=== PATIENT | female | born 1955 | race Caucasian/White ===

== ENCOUNTER 2020-03-25 08:09 | Outpatient (REF) | payer OTHER, SELFPAY ==
--- NOTE | 2020-03-25 | US_ITS ---
EXAMINATION: US THYROID CLINICAL INFORMATION: Multinodular goiter. COMPARISON: Ultrasound soft tissue head/neck thyroid dated 10/20/2018. TECHNIQUE: Linear transducer diggs-scale and color Doppler examination with attention to the region of the thyroid. FINDINGS: SIZE: Measurements of the thyroid lobes and nodules are given in sagittal, anteroposterior and transverse dimensions respectively. Right Thyroid Lobe: 4.1 x 2.2 x 1.9 cm, volume 8.8 mL. Previously 4.3 x 2.2 x 1.7 cm, volume 8.4 mL. Parenchyma: The gland echotexture is heterogeneous. Thyroid vascularity is normal. Left Thyroid Lobe: 3.1 x 1.3 x 1.2 cm, volume 2.5 mL. Previously 3.5 x 1.1 x 1.0 cm, volume 2.0 mL. Parenchyma: The gland echotexture is heterogeneous. Thyroid vascularity is normal. Isthmus: 0.4 cm in maximum AP dimension. Previously 0.7 cm. RIGHT THYROID LOBE: There are 4 nodules seen. 1. Location: Superior. Size: 0.9 x 0.7 x 0.8 cm. Previous: 0.8 x 0.7 x 0.9 cm. Nodule characteristics: Hypoechoic, smoothly-marginated with intranodular flow. 2. Location: Middle. Size: 0.9 x 0.6 x 0.7 cm. Previous: 0.5 x 0.6 x 0.6 cm. Nodule characteristics: Hyperechoic, smoothly-marginated with intranodular flow. 3. Location: Middle. Size: 1.3 x 1.3 x 0.8 cm. Previous: 2.4 x 1.8 x 1.7 cm. Nodule characteristics: Heterogeneous, smoothly-marginated with intranodular flow. 4. Location: Inferior. Size: 1.4 x 1.0 x 1.0 cm. Previous: Not seen on the prior study. Nodule characteristics: Hyperechoic, smoothly-marginated with intranodular flow. ISTHMUS: There are 2 nodules seen. 1. Location: Right isthmus. Size: 1.1 x 0.7 x 0.7 cm. Previous: 0.4 x 0.3 x 0.4 cm. Nodule characteristics: Isoechoic, smoothly-marginated with intranodular flow. 2. Location: Right isthmus. Size: 0.5 x 0.5 x 0.6 cm. Previous: 0.5 x 0.4 x 0.5 cm. Nodule characteristics: Hyperechoic, smoothly-marginated with intranodular flow. LEFT THYROID LOBE: There is 1 nodule seen. 1. Location: Superior. Size: 1.1 x 0.6 x 0.8 cm. Previous: 1.1 x 0.6 x 0.7 cm. Nodule characteristics: Hyperechoic, smoothly-marginated with intranodular flow. NODES: No lymphadenopathy is seen in the tissue surrounding the thyroid gland. US/US thyroid IMPRESSION: Multiple thyroid nodules. Right lobe midpole heterogenous 1.3 cm and hyperechoic nodule 1.4 cm lower pole nodules are suspicious. The lower pole nodule is new. Recommend ultrasound fine-needle biopsy if not already done so. Correlation 6 months can be performed as well.
== END 2020-03-25 08:10 | disposition home or self-care (01) ==
LOC: HO.HMGCX 08:09
PROVIDERS: PCP Internal Medicine; Visit Provider Internal Medicine
DX: E04.2 Nontoxic multinodular goiter (principal)
CPT/HCPCS: 76536

== ENCOUNTER 2020-04-19 06:33 | Outpatient (REF) | payer OTHER, SELFPAY ==
[2020-04-19 12:31] LABS: Thyroid Stimulating Hormone 2.36 uIU/mL (0.32-4.0); Vitamin D 25-OH Total 25.4 ng/mL (>30)
== END 2020-04-19 06:34 | disposition home or self-care (01) ==
LOC: HO.HMGCLDS 06:33
PROVIDERS: PCP Internal Medicine; Visit Provider Internal Medicine
DX: E04.2 Nontoxic multinodular goiter (principal)
CPT/HCPCS: 82306; 84443

== ENCOUNTER 2020-04-20 07:32 | Outpatient (REF) | payer OTHER, SELFPAY | END 2020-04-20 07:33 | disposition home or self-care (01) | LOC: HO.US 07:32 | PROVIDERS: PCP Internal Medicine; Referring Provider Internal Medicine; Visit Provider Internal Medicine | DX: Z13.89 Encounter for screening for other disorder (principal) ==

== ENCOUNTER 2020-06-09 07:54 | Outpatient (REF) | payer OTHER, SELFPAY ==
--- NOTE | 2020-06-09 08:34 | PM.OP ---
Brief Operative Note Date of Service: 06/09/20 Surgeon: Lisa Tijerina DO EXAMINATION: US THYROID CLINICAL INFORMATION: Multinodular Thyroid TECHNIQUE: Linear transducer diggs-scale and color Doppler examination with attention to the region of the thyroid. FINDINGS: SIZE: Measurements of the thyroid lobes and nodules are given in sagittal, anteroposterior and transverse dimensions respectively. Right Thyroid Lobe: 2.0 x 1.7 x 4.7 cm. Parenchyma: The gland echotexture is diffusely heterogenous. Thyroid vascularity is normal. Left Thyroid Lobe: 2.9 x 1.2 x 3.6 cm. Parenchyma: The gland echotexture is diffusely heterogenous. Thyroid vascularity is normal. Isthmus: 0.4 cm in maximum AP dimension. RIGHT THYROID LOBE: There is 1 nodule. There is a 1.1 x 1.3 x 1.3 cm predominantly solid slightly hypoechoic nodule in the middle lobe. This has regular margins. LEFT THYROID LOBE: There are no nodules. IMPRESSION: The gland is diffusely heterogenous with many pseudonodules, but only one true nodule identified. Estimated blood loss (mL): 0
== END 2020-06-09 07:55 | disposition home or self-care (01) ==
LOC: HO.US 07:54
PROVIDERS: Visit Provider Internal Medicine
DX: E04.2 Nontoxic multinodular goiter (principal)
CPT/HCPCS: 76536

== ENCOUNTER → 2020-06-22 08:03 | Outpatient (BNVA) | payer OTHER, SELFPAY | PROVIDERS: Visit Provider Internal Medicine ==

== ENCOUNTER → 2020-09-26 09:21 | Outpatient (BNVA) | payer OTHER, SELFPAY | PROVIDERS: PCP Internal Medicine; Visit Provider Internal Medicine ==

== ENCOUNTER 2020-09-29 06:40 | Outpatient (REF) | payer OTHER, SELFPAY ==
[2020-09-29 12:25] LABS: Free T4 (Free Thyroxine) 1.08 ng/dL (0.71-1.85); Thyroid Stimulating Hormone 1.78 uIU/mL (0.32-4.0); Vitamin D 25-OH Total 24.4 ng/mL (>30)
== END 2020-09-29 06:41 | disposition home or self-care (01) ==
LOC: HO.HMGCLDS 06:40
PROVIDERS: PCP Internal Medicine; Visit Provider Internal Medicine
DX: E55.9 Vitamin D deficiency, unspecified (principal); E03.9 Hypothyroidism, unspecified; E04.2 Nontoxic multinodular goiter
CPT/HCPCS: 36415; 82306; 84439; 84443

== ENCOUNTER → 2020-11-17 09:06 | Outpatient (BNVA) | payer OTHER, SELFPAY | PROVIDERS: PCP Internal Medicine; Visit Provider Internal Medicine ==

== ENCOUNTER 2021-05-31 06:43 | Outpatient (REF) | payer OTHER, SELFPAY ==
[2021-05-31 12:28] LABS: Free T4 (Free Thyroxine) 1.08 ng/dL (0.71-1.85); Thyroid Stimulating Hormone 2.47 uIU/mL (0.32-4.0); Vitamin D 25-OH Total 24.1 ng/mL (>30)
== END 2021-05-31 06:44 | disposition home or self-care (01) ==
LOC: HO.HMGCLDS 06:43
PROVIDERS: PCP Internal Medicine; Visit Provider Internal Medicine
DX: E03.9 Hypothyroidism, unspecified (principal); E04.2 Nontoxic multinodular goiter; E55.9 Vitamin D deficiency, unspecified
CPT/HCPCS: 36415; 82306; 84439; 84443

== ENCOUNTER 2021-06-12 08:21 | Outpatient (REF) | payer OTHER, SELFPAY ==
--- NOTE | ~2021-06-12 | US_ITS ---
EXAMINATION: US THYROID CLINICAL INFORMATION: Nontoxic multinodular goiter. COMPARISON: Thyroid ultrasound 03/25/2020 and 10/20/2018. Ultrasound-guided thyroid biopsy 04/02/2019. TECHNIQUE: Linear transducer grayscale and color Doppler examination with attention to the region of the thyroid. FINDINGS: SIZE: Measurements of the thyroid lobes and nodules are given in sagittal, anteroposterior and transverse dimensions respectively. Right Thyroid Lobe: 4.7 x 2.0 x 2.0 cm, volume 10.2 mL. Previously 4.1 x 2.2 x 1.9 cm, volume 8.8 mL. Parenchyma: The gland echotexture is heterogeneous. Thyroid vascularity is increased. Left Thyroid Lobe: 3.4 x 1.4 x 1.2 cm, volume 2.9 mL. Previously 3.1 x 1.3 x 1.2 cm, volume 2.5 mL. Parenchyma: The gland echotexture is heterogeneous. Thyroid vascularity is increased. Isthmus: 0.7 cm in maximum AP dimension. Previously 0.4 cm. Estimated total number of nodules greater than or equal to 1 cm: 3. Social Science Professor nodules are described as follows: 1. Location: Right upper pole. Size: 1.7 x 1.6 x 1.4 cm, volume 2.0 mL. Previously: 0.9 x 0.7 x 0.8 cm, volume 0.26 mL. Nodule characteristics: Composition: Solid/almost completely solid (2). Echogenicity: Cannot be determined (1). Shape: Not taller than wide (0). Margins: Smooth (0). Echogenic Foci: None (0). ACR TI-RADS total points: 3 ACR TI-RADS category: 3 Significant change in size (>/= 20% in 2 dimensions and minimal increase of 2 mm or 50% or greater increase in volume): Yes however this may be due to technical factors, intra-axial or variation of nodule margins. Change in features: Change in ACR TI-RADS risk category: 2. Location: Right mid pole. Size: 2.1 x 1.6 x 1.5 cm, volume 2.6 mL. Previously: 1.3 x 1.3 x 0.8 cm, volume 0.72 mL. Nodule characteristics: Composition: Solid/almost completely solid (2). Echogenicity: Cannot be determined (1). Shape: Not taller than wide (0). Margins: Smooth (0). Echogenic Foci: Punctate echogenic foci (3). ACR TI-RADS total points: 6 ACR TI-RADS category: 4 Significant change in size (>/= 20% in 2 dimensions and minimal increase of 2 mm or 50% or greater increase in volume): Yes however this may be due to technical factors, interobserver variation of nodule margins. Change in features: Change in ACR TI-RADS risk category: 3. Location: Left upper pole. Size: 1.3 x 0.7 x 0.8 cm, volume 0.38 mL. Previously: 1.1 x 0.6 x 0.8 cm, volume 0.28 mL. Nodule characteristics: Composition: Solid (2). Echogenicity: Hyperechoic (1). Shape: Not taller than wide (0). Margins: Smooth (0). Echogenic Foci: None (0). ACR TI-RADS total points: 3 ACR TI-RADS category: 3 The previously identified right isthmus nodule is not appreciated. Significant change in size (>/= 20% in 2 dimensions and minimal increase of 2 mm or 50% or greater increase in volume): Change in features: Change in ACR TI-RADS risk category: NODES: No lymphadenopathy is seen in the tissue surrounding the thyroid gland. US/US thyroid IMPRESSION: Very heterogeneous hypervascular thyroid gland. The right lobe is enlarged. Difference in measurements of the right thyroid nodules may be due to technical factors/interobserver variation of nodule margins. The previously identified right isthmus nodule is no longer appreciated. The left thyroid nodule appears stable. ACR TI-RADS RECOMMENDATION REFERENCE: Ultrasound-guided fine-needle aspiration, followup ultrasound, no further follow up. * TR1 (0 point) and TR 2 (2 points): No FNA or follow up * TR3 (3 points): FNA if more than or equal to 2.5 cm in maximum dimension, followup ultrasound in 1, 3 and 5 years if 1.5 to 2.4 cm in maximum dimension. * TR4 (4-6 points): FNA if more than or equal to 1.5 cm in maximum dimension, followup ultrasound in 1, 2, 3 and 5 years if 1 to 1.4 cm in maximum dimension. * TR5 (more than or equal to 7 points): FNA if more than or equal to 1 cm in maximum dimension, followup ultrasound every year for 5 years if 0.5 to 0.9 cm in maximum dimension. * TR3, TR4 or TR5 nodules that are below the size threshold for follow up receive no follow up.
== END 2021-06-12 08:22 | disposition home or self-care (01) ==
LOC: HO.HMGCX 08:21
PROVIDERS: PCP Internal Medicine; Visit Provider Internal Medicine
DX: E04.2 Nontoxic multinodular goiter (principal)
CPT/HCPCS: 76536

== ENCOUNTER → 2021-06-19 08:16 | Outpatient (BNVA) | payer OTHER, SELFPAY | PROVIDERS: PCP Internal Medicine; Visit Provider Internal Medicine ==

== ENCOUNTER 2021-11-23 09:06 | Outpatient (REF) | payer OTHER, SELFPAY ==
--- NOTE | ~2021-11-23 | XR_ITS ---
EXAMINATION: XR NASAL BONES CLINICAL INFORMATION: Facial injury, rule out nasal bone fracture. COMPARISON: None TECHNIQUE: 3 views of the nasal bones were obtained. FINDINGS: There are no fractures or dislocations. The paranasal sinuses are clear. No bone, joint or soft tissue abnormality is demonstrated. XR/XR nasal bones min 3V IMPRESSION: No acute nasal bone fracture.
== END 2021-11-23 09:07 | disposition home or self-care (01) ==
LOC: HO.HMGCX 09:06
PROVIDERS: PCP Internal Medicine; Visit Provider Internal Medicine
DX: S09.93XA Unspecified injury of face, initial encounter (principal); W19.XXXA Unspecified fall, initial encounter
CPT/HCPCS: 70160

== ENCOUNTER 2021-11-29 06:43 | Outpatient (REF) | payer OTHER, SELFPAY ==
[2021-11-29 11:22] LABS: Hematocrit 41.5 % (37.0-47.0); Hemoglobin 13.6 g/dl (12.0-16.0); Mean Corpuscular HGB Conc 32.8 g/dl (31.0-35.0); Mean Corpuscular Hemoglobin 31.3 pg (27.0-33.0); Mean Corpuscular Volume 95.6 fL (80.0-98.0); Mean Platelet Volume 12.7 fL (9.4-12.3); Platelet Count 208 X10*3/uL (160-400); Red Blood Count 4.34 X10*6/uL (4.20-5.50); Red Cell Distribution Width 13.2 % (11.0-16.0); White Blood Count 5.5 X10*3/uL (4.8-10.8)
[2021-11-29 11:43] LABS: Alanine Aminotransferase 25 U/L (0-31); Albumin Level 4.2 g/dL (3.5-5.0); Alkaline Phosphatase 89 U/L (39-117); Anion Gap 11 (12-20); Aspartate Amino Transferase 20 U/L (5-31); Bilirubin Total 1.1 mg/dL (0.0-1.0); Blood Urea Nitrogen 17 mg/dL (9-16); Calcium 8.9 mg/dL (8.4-10.2); Carbon Dioxide 28 mmol/L (22-29); Chloride 107 mmol/L (96-108); Cholesterol 141 mg/dL; Estimated Glomerular Filt Rate > 60; Glucose Fasting 100 mg/dL (60-99); HDL Cholesterol 41 mg/dL; LDL Cholesterol Calculated 83 mg/dl; Potassium 4.2 mmol/L (3.3-5.1); Sodium 142 mmol/L (135-145); Total Protein 7.1 g/dL (6.5-8.0); Triglycerides 89 mg/dL
== END 2021-11-29 06:44 | disposition home or self-care (01) ==
LOC: HO.HMGCLDS 06:43
PROVIDERS: Absent Provider Internal Medicine; PCP Internal Medicine; Visit Provider Internal Medicine
DX: E03.9 Hypothyroidism, unspecified (principal); E04.2 Nontoxic multinodular goiter; E55.9 Vitamin D deficiency, unspecified; E78.5 Hyperlipidemia, unspecified
CPT/HCPCS: 36415; 80053; 80061; 85027

== ENCOUNTER 2021-12-27 08:34 | Outpatient (REF) | payer OTHER, SELFPAY ==
[2021-12-27 12:19] LABS: Vitamin D 25-OH Total 31.1 ng/mL (>30)
== END 2021-12-27 08:35 | disposition home or self-care (01) ==
LOC: HO.HMGCLDS 08:34
PROVIDERS: PCP Internal Medicine; Visit Provider Internal Medicine
DX: E55.9 Vitamin D deficiency, unspecified (principal)
CPT/HCPCS: 36415; 82306

== ENCOUNTER 2022-05-29 08:02 | Outpatient (REF) | payer OTHER, SELFPAY ==
--- NOTE | ~2022-05-29 | US_ITS ---
EXAMINATION: US THYROID CLINICAL INFORMATION: Nontoxic multinodular goiter. COMPARISON: Ultrasound thyroid 06/12/2021 and 03/25/2020. US-guided thyroid biopsy 04/02/2019. TECHNIQUE: Linear transducer grayscale and color Doppler examination with attention to the region of the thyroid. FINDINGS: SIZE: Measurements of the thyroid lobes and nodules are given in sagittal, anteroposterior and transverse dimensions respectively. Right Thyroid Lobe: 4.6 x 2.0 x 2.1 cm, volume 9.7 mL. Previously 4.7 x 2.0 x 2.0 cm, volume 10.2 mL. Parenchyma: The gland echotexture is heterogeneous. Thyroid vascularity is increased. Left Thyroid Lobe: 3.7 x 1.3 x 1.4 cm, volume 3.5 mL. Previously 3.4 x 1.4 x 1.2 cm, volume 2.9 mL. Parenchyma: The gland echotexture is heterogeneous. Thyroid vascularity is increased. Isthmus: 0.70 cm in maximum AP dimension. Previously 0.7 cm. Estimated total number of nodules greater than or equal to 1 cm: 3. Respiratory Therapy Assistant nodules are described as follows: 1. Location: Right superior. Size: 1.8 x 1.7 x 1.8 cm, volume 3.0 mL. Previously: 1.7 x 1.6 x 1.4 cm, volume 2.0 mL. Nodule characteristics: Composition: Solid/almost completely solid (2). Echogenicity: Cannot be determined (1). Shape: Not taller than wide (0). Margins: Smooth (0). Echogenic Foci: None (0). ACR TI-RADS total points: 3. Previous: 3. ACR TI-RADS category: 3. Previous: 3. Significant change in size (>/= 20% in 2 dimensions and minimal increase of 2 mm or 50% or greater increase in volume): Yes. Change in features: No. Change in ACR TI-RADS risk category: No. 2. Location: Right mid/inferior. Size: 2.1 x 1.7 x 1.7 cm, volume 3.1 mL. Previously: 2.1 x 1.6 x 1.5 cm, volume 2.6 mL. Nodule characteristics: Composition: Solid (2). Echogenicity: Cannot be determined (1). Shape: Not taller than wide (0). Margins: Smooth (0). Echogenic Foci: Punctate echogenic foci (3). ACR TI-RADS total points: 6. Previous: 6. ACR TI-RADS category: 4. Previous: 4. Significant change in size (>/= 20% in 2 dimensions and minimal increase of 2 mm or 50% or greater increase in volume): No. Change in features: No. Change in ACR TI-RADS risk category: No. 3. Location: Right mid. Size: 0.60 x 0.64 x 0.65 cm, volume 0.13 mL. Previously: Not seen on the previous study. Nodule characteristics: Composition: Solid (2). Echogenicity: Hyperechoic (1). Shape: Not taller than wide (0). Margins: Smooth (0). Echogenic Foci: None (0). ACR TI-RADS total points: 3. ACR TI-RADS category: 3. 4. Location: Left mid. Size: 1.2 x 0.63 x 1.0 cm, volume 0.40 mL. Previously: 1.3 x 0.72 x 0.78 cm, volume 0.38 mL. Nodule characteristics: Composition: Solid (2). Echogenicity: Hyperechoic (1). Shape: Not taller than wide (0). Margins: Smooth (0). Echogenic Foci: None (0). ACR TI-RADS total points: 3. Previous: 3. ACR TI-RADS category: 3. Previous: 3. Significant change in size (>/= 20% in 2 dimensions and minimal increase of 2 mm or 50% or greater increase in volume): No. Change in features: No. Change in ACR TI-RADS risk category: No. NODES: No lymphadenopathy is seen in the tissue surrounding the thyroid gland. US/US thyroid IMPRESSION: 1. Multinodular goiter. 2. Three nodules are greater than 1 cm in size. 3. The nodule #2 above which has increased in size slightly with a maximum dimension of 2.1 cm is TI-RADS Category 4 and warrants biopsy, if this has not already been performed. No other nodule needs biopsy. 4. Follow-up ultrasound in one year recommended for nodule #1 above.
[2022-05-29 12:41] LABS: Free T4 (Free Thyroxine) 1.37 ng/dL (0.71-1.85); Thyroid Stimulating Hormone 2.24 uIU/mL (0.32-4.0); Vitamin D 25-OH Total 23.8 ng/mL (>30)
== END 2022-05-29 08:03 | disposition home or self-care (01) ==
LOC: HO.HMGCX 08:02
PROVIDERS: PCP Internal Medicine; Visit Provider Internal Medicine
DX: E04.2 Nontoxic multinodular goiter (principal); E55.9 Vitamin D deficiency, unspecified
CPT/HCPCS: 36415; 76536; 82306; 84439; 84443

== ENCOUNTER → 2022-06-18 09:57 | Outpatient (BNVA) | payer OTHER, SELFPAY | PROVIDERS: PCP Internal Medicine; Visit Provider Internal Medicine | DX: Z13.89 Encounter for screening for other disorder (principal) ==

== ENCOUNTER 2022-09-27 08:58 | Outpatient (REF) | payer OTHER, SELFPAY ==
--- NOTE | 2022-09-27 09:36 | P.BOP_ITS ---
Brief Operative Note Date of Service: 09/27/22 Pre-op diagnosis: Multinodular Thyroid Procedure: EXAMINATION: US THYROID CLINICAL INFORMATION: Multinodular Thyroid COMPARISON: Prior TECHNIQUE: Linear transducer diggs-scale and color Doppler examination with attention to the region of the thyroid. FINDINGS: SIZE: Measurements of the thyroid lobes and nodules are given in sagittal, anteroposterior and transverse dimensions respectively. Right Thyroid Lobe: 3.7 x 2.4 x 2.0 cm, volume 9.3 mL. Parenchyma: The gland echotexture is diffusely heterogenous. Thyroid vascularity is increased. Left Thyroid Lobe: 3.0 x x cm, volume mL. Parenchyma: The gland echotexture is . Thyroid vascularity is . Isthmus: 0.5 cm in maximum AP dimension. RIGHT THYROID LOBE: There is 1 nodule. 1. Right Mid Pole: 1.3 x 1.9 x 1.5 cm. Predominantly solid, isoechoic nodule with a hypoechoic rind. Smooth margins, no microcalcifications. Grade 3 intranodular flow. LEFT THYROID LOBE: There are no nodules. Surgeon: Lisa Tijerina, DO Was an Returned Telephone Equipment Appraiser used for this Procedure?: No Estimated blood loss (mL): 0
== END 2022-09-27 08:59 | disposition home or self-care (01) ==
LOC: HO.US 08:58
PROVIDERS: PCP Internal Medicine; Visit Provider Internal Medicine
DX: E04.2 Nontoxic multinodular goiter (principal)
CPT/HCPCS: 76536

== ENCOUNTER → 2022-11-15 14:17 | Outpatient (BNVA) | payer OTHER, SELFPAY | PROVIDERS: PCP Internal Medicine; Visit Provider Internal Medicine ==

== ENCOUNTER 2022-12-25 06:31 | Outpatient (REF) | payer OTHER, SELFPAY ==
[2022-12-25 11:12] LABS: MANUAL DIFF FLAG NO
[2022-12-25 11:56] LABS: Basophils Absolute Auto 0.1 X10*3/uL (0.0-0.2); Basophils Percent Auto 0.9 % (0-2); Eosinophils Absolute Auto 0.3 X10*3/uL (0.0-0.4); Eosinophils Percent Auto 5.9 % (0-4); Lymphocytes Absolute Auto 2.3 X10*3/uL (1.2-4.9); Lymphocytes Percent Auto 39.2 % (20-40); Mean Corpuscular HGB Conc 31.7 g/dl (31.0-35.0); Mean Corpuscular Hemoglobin 30.9 pg (27.0-33.0); Mean Corpuscular Volume 97.4 fL (80.0-98.0); Mean Platelet Volume 12.1 fL (9.4-12.3); Monocytes Absolute Auto 0.4 X10*3/uL (0.1-1.2); Neutrophils Absolute Auto 2.7 x10*3/uL (2.0-8.3); Platelet Count 211 X10*3/uL (160-400); Red Blood Count 4.21 X10*6/uL (4.20-5.50); Red Cell Distribution Width 13.3 % (11.0-16.0); White Blood Count 5.7 X10*3/uL (4.8-10.8)
[2022-12-25 13:00] LABS: Alanine Aminotransferase 18 U/L (0-31); Albumin Level 3.9 g/dL (3.5-5.0); Alkaline Phosphatase 89 U/L (39-117); Anion Gap 8 (12-20); Aspartate Amino Transferase 17 U/L (5-31); Bilirubin Total 0.6 mg/dL (0.0-1.0); Blood Urea Nitrogen 18 mg/dL (9-16); Calcium 9.5 mg/dL (8.4-10.2); Carbon Dioxide 29 mmol/L (22-29); Chloride 109 mmol/L (96-108); Cholesterol 155 mg/dL; Estimated Glomerular Filt Rate > 60; Glucose Fasting 100 mg/dL (60-99); HDL Cholesterol 46 mg/dL; LDL Cholesterol Calculated 94 mg/dl; Potassium 4.1 mmol/L (3.3-5.1); Sodium 142 mmol/L (135-145); Total Protein 7.1 g/dL (6.5-8.0); Triglycerides 77 mg/dL
[2022-12-25 13:03] LABS: Vitamin D 25-OH Total 35.2 ng/mL (>30)
== END 2022-12-25 06:32 | disposition home or self-care (01) ==
LOC: HO.HMGCLDS 06:31
PROVIDERS: PCP Internal Medicine; Visit Provider Internal Medicine
DX: Z00.00 Encounter for general adult medical examination without abnormal findings (principal); E03.9 Hypothyroidism, unspecified; E55.9 Vitamin D deficiency, unspecified; E78.5 Hyperlipidemia, unspecified
CPT/HCPCS: 36415; 80053; 80061; 82306; 85025

== ENCOUNTER 2022-12-28 11:26 | Outpatient (AMB) | payer OTHER, SELFPAY ==
--- NOTE | 2022-12-28 11:34 | MHC.PC.OV ---
Vital Signs 12/28/22 11:35 Height 5 ft 6 in Weight 201 lb BMI 32.4 BP 130/80 Blood Pressure Location Lt brachial Position Sitting Pulse 62 Pulse Source Pulse Oximeter Pulse Oximetry (%) 99 Oxygen Delivery Method Room Air Intake Visit Reasons: Annual Physical Intake Note: Pt is here today for PE. Pt states that she needs a refill on the cream. Pt states that she has appt next month for pap at [facility]. Allergies No Known Allergies [No Known Allergies*] Allergy (Verified 12/28/22 11:37) Tobacco use date assessed: 12/28/22 Fall risk assessment: No Falls in past year Last assessed Fall Risk: 12/28/22 Dental Screening Dental Screen Date: 12/28/22 Did you have a dental visit in the last 12 months?: Yes Did you have a dental problem in the last 6 months where you did not have access to dental care?: No Was dental information given to patient?: Patient has dentist HPI Annual Physical HPI Details Pt presents for PE. [facility] Medical History (Updated 12/28/22 @ 12:15 by Sharon Smallwood MD) Annual physical exam Hyperlipidemia Hypothyroidism Mammogram normal Multinodular thyroid Normal colonoscopy Normal Pap smear Vitamin D deficiency Surgical History History of skin surgery History of total abdominal hysterectomy and bilateral salpingo-oophorectomy Family History Father No problems noted. Mother No problems noted. 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 1. Little interest or pleasure in doing things: not at all 2. Feeling down, depressed, or hopeless: not at all 3. Trouble falling or staying asleep, or sleeping too much: not at all 4. Feeling tired or having little energy: not at all 5. Poor appetite or overeating: not at all 6. Feeling bad about yourself - or that you are a failure or have let yourself or your family down: not at all 7. Trouble concentrating on things, such as reading the newspaper or watching television: not at all 8. Moving or speaking so slowly that other people could have noticed. Or the opposite - being so fidgety or restless that you have been moving around a lot more than usual: not at all 9. Thoughts that you would be better off or of hurting yourself in some way: not at all Total score: 0 Depression Screening Interpretation: Negative Source: Developed by Drs. Ryna Roberson, Bertha Correa, Ugo García and colleagues, with an educational aileen from [employer]. Thrive Questionnaire Date Thrive assessed: 12/28/22 I am a: Patient What is your living situation today?: I have a steady place to live Within the past 12 months, did the food you bought not last and you didn't have the money to get more?: Never true Within the past 12 months, did you worry whether your food would run out before you got money to buy more?: Never true Do you have trouble paying for medicines?: No Do you have trouble getting transportation to medical appointments?: No Do you have trouble paying your heating and electricity bill?: No Do you have trouble taking care of your child, family member or friend?: No Do you have trouble with day-to-day activities such as bathing, preparing meals, shopping, managing finances, etc.?: No Are you currently unemployed and looking for a job?: No Are you interested in more education?: No Please select the resources that you would like help with: None Currently or been in a relationship where the following occur: no concerns reported AUDIT C Alcohol Use Questionnaire (AUDIT-C) 1. How often do you have a drink containing alcohol?: Monthly or less 2. How many drinks containing alcohol do you have on a typical day when you are drinking?: 1 or 2 3. How often do you have six or more drinks on one occasion?: Never Total Score: 1 MATT-7 AMB Questionnaire MATT-7 Date MATT - 7 assessed: 12/28/22 Feeling nervous, anxious, or on edge: 0 = Not at all Not being able to stop or control worryin = Not at all Worrying too much about different things: 0 = Not at all Trouble relaxin = Not at all Being so restless that it is hard to sit still: 0 = Not at all Becoming easily annoyed or irritable: 0 = Not at all Feeling afraid as if something awful might happen: 0 = Not at all Total MATT-7 score (0-4 normal; 5-9 mild; 10-14 moderate; 15-21 severe): 0 Source: Developed by Drs. Ryan Roberson, Bertha Correa, Ugo García and colleagues, with an educational aileen from [employer]. Review of Systems Const All systems reviewed & are unremarkable except as noted in HPI and below Reports no additional complaints Eyes Reports no additional complaints ENT Reports no additional complaints Card Reports no additional complaints Resp Reports no additional complaints GI Reports no additional complaints Reports no additional complaints Musc Reports no additional complaints Neuro Reports no additional complaints Physical exam (Primary Care) Vital Signs: Last Vital Signs Pulse 62 12/28/22 11:35 BP 130/80 12/28/22 11:35 Pulse Ox 99 12/28/22 11:35 Oxygen Delivery Method Room Air 12/28/22 11:35 BMI result Body Mass Index 32.4 Tobacco/Smoking Status: Tobacco use Status Tobacco use date assessed 12/28/22 12/28/22 11:42 Patient Tobacco Use Status Never used Tobacco 12/28/22 11:42 e-Cigarette/Vaping Use Never Used 12/28/22 11:42 PHQ-9: PHQ-9 Score PHQ-9: Total score 0 12/28/22 11:46 Depression Screening Interpretation: Negative Thrive Assessment: Date of Thrive Assessment Date Thrive assessed 12/28/22 12/28/22 11:46 Currently or been in a relationship where the following occur: no concerns reported Const General: no acute distress HENDE General nose exam: Normal external nose present Face and sinus: Yes normal facial exam Mouth: Normal oral and palatal mucosa present Throat: Yes posterior oropharynx normal Eyes General: appearance normal, both eyes and all related structures Neck Neck: Yes no lymphadenopathy and Yes supple Resp Effort & Inspection: normal respiratory effort Auscultation: clear to auscultation bilaterally Cardio Rhythm: regular rhythm Heart sounds: S1 normal heart sound present and S2 normal heart sound present GI Inspection: Yes normal to inspection Palpation (GI): Soft to palpation Percussion: Yes normal to percussion Auscultation: normal bowel sounds Assessment and Plan Assessment & Plan (1) Hyperlipidemia: Code(s): E78.5 - Hyperlipidemia, unspecified Plan: Continue statin (2) Hypothyroidism: Comment: f/u with [facility] [place] Code(s): E03.9 - Hypothyroidism, unspecified Plan: Continue levothyroxine (3) Annual physical exam: Code(s): Z00.00 - Encounter for general adult medical examination without abnormal findings Plan: Well-balanced diet and regular physical activity discussed with the patient. She is up-to-date with mammogram through production designer Pap smear and colonoscopy. Patient will return in 1 year for physical Orders: Orders Comprehensive [place]. Panel Fast 365 Days E03.9 - Hypothyroidism, unspecified, E78.5 - Hyperlipidemia, unspecified, Z00.00 - Encounter for general adult medical examination without abnormal findings Complete Blood Count Auto Diff 365 Days E03.9 - Hypothyroidism, unspecified, E78.5 - Hyperlipidemia, unspecified, Z00.00 - Encounter for general adult medical examination without abnormal findings Lipid Panel 365 Days E03.9 - Hypothyroidism, unspecified, E78.5 - Hyperlipidemia, unspecified, Z00.00 - Encounter for general adult medical examination without abnormal findings UA w Microscopic 365 Days E03.9 - Hypothyroidism, unspecified, E78.5 - Hyperlipidemia, unspecified, Z00.00 - Encounter for general adult medical examination without abnormal findings Medications: Refilled clotrimazole-betamethasone 1-0.05 % 1 appl topical BID 15 grams 6RF Coding Level of Care Code Est Pt Prev Care >65y(79772) Diagnoses Hyperlipidemia E78.5 Hypothyroidism E03.9 Annual physical exam Z00.00
[2022-12-28 11:35] VITALS: BP 130/80; PULSE 62; O2SAT 99; BMI 32.4
== END 2022-12-28 12:25 | disposition home or self-care (01) ==
PROVIDERS: PCP Internal Medicine; Visit Provider Internal Medicine
DX: E78.5 Hyperlipidemia, unspecified (principal); E03.9 Hypothyroidism, unspecified; Z00.00 Encounter for general adult medical examination without abnormal findings
CPT/HCPCS: 99397

== ENCOUNTER 2023-08-20 07:54 | Outpatient (REF) | payer OTHER, SELFPAY ==
--- NOTE | ~2023-08-20 | US_ITS ---
EXAMINATION: US THYROID CLINICAL INFORMATION: Nontoxic multinodular goiter. COMPARISON: Ultrasound soft tissue head/neck thyroid dated 09/27/2022 and 05/29/2022. TECHNIQUE: Linear transducer grayscale and color Doppler examination with attention to the region of the thyroid. FINDINGS: SIZE: Measurements of the thyroid lobes and nodules are given in sagittal, anteroposterior and transverse dimensions respectively. Right Thyroid Lobe: 4.1 x 2.0 x 1.9 cm, volume 7.9 mL. Previously (09/27/2022) 3.7 x 2.4 x 2.0 cm, volume 9.3 mL. Previously (05/29/2022) 4.6 x 2.0 x 2.1 cm, volume 9.7 mL. Parenchyma: The gland echotexture is heterogeneous. Thyroid vascularity is increased. Left Thyroid Lobe: 3.6 x 1.5 x 1.3 cm, volume 3.6 mL. Previously(09/27/2022) 3.0 x 1.1 x 1.1 cm, volume 1.9 mL. Previously (05/29/2022) 3.7 x 1.3 x 1.4 cm, volume 3.5 mL. Parenchyma: The gland echotexture is heterogeneous. Thyroid vascularity is increased. Isthmus: 0.71 cm in maximum AP dimension. Previously(09/27/2022) 0.50 CM.. Previously (05/29/2022) 0.70 cm. Estimated total number of nodules greater than or equal to 1 cm: 4. Sand Polisher nodules are described as follows: 1. Location: Right mid. Size: 2.4 x 1.8 x 2.0 cm, volume 4.4 mL. Previously (05/29/2022): 1.8 x 1.7 x 1.8 cm, volume 3.0 mL. Nodule characteristics: Composition: Solid/almost completely solid (2). Echogenicity: Hypoechoic (2). Shape: Not taller than wide (0). Margins: Smooth (0). Echogenic Foci: Punctate echogenic foci (3). ACR TI-RADS total points: 7 Previous: 3 ACR TI-RADS category: 5 Previous: 3 Significant change in size (>/= 20% in 2 dimensions and minimal increase of 2 mm or 50% or greater increase in volume): Yes Change in features: Yes Change in ACR TI-RADS risk category: Yes 2. Location: Right inferior. Size: 1.3 x 0.8 x 0.91 cm, volume 0.50 mL. Previously: Not seen on the previous study. Nodule characteristics: Composition: Mixed cystic and solid (1). Echogenicity: Hypoechoic (2). Shape: Not taller than wide (0). Margins: Smooth (0). Echogenic Foci: None (0). ACR TI-RADS total points: 3 ACR TI-RADS category: 3 3. Location: Right inferior. Size: 2.0 x 1.7 x 1.6 cm, volume 2.8 mL. Previously (05/29/2022): 2.1 x 1.7 x 1.7 cm, volume 3.1 mL. Nodule characteristics: Composition: Solid (2). Echogenicity: Cannot be determined (1). Shape: Not taller than wide (0). Margins: Smooth (0). Echogenic Foci: Punctate echogenic foci (3). ACR TI-RADS total points: 6 Previous: 6 ACR TI-RADS category: 4 Previous: 4 Significant change in size (>/= 20% in 2 dimensions and minimal increase of 2 mm or 50% or greater increase in volume): No Change in features: No Change in ACR TI-RADS risk category: No 4. Location: Left mid. Size: 1.3 x 0.8 x 1.0 cm, volume 0.55 mL. Previously (05/29/2022): 1.2 x 0.63 x 1.0 cm, volume 0.40 mL. Nodule characteristics: Composition: Solid (2). Echogenicity: Hyperechoic (1). Shape: Not taller than wide (0). Margins: Smooth (0). Echogenic Foci: None (0). ACR TI-RADS total points: 3 Previous: 3 ACR TI-RADS category: 3 Previous: 3 Significant change in size (>/= 20% in 2 dimensions and minimal increase of 2 mm or 50% or greater increase in volume): No Change in features: No Change in ACR TI-RADS risk category: No NODES: No lymphadenopathy is seen in the tissue surrounding the thyroid gland. US/US thyroid IMPRESSION: 1. Nodule in the midportion of the right thyroid lobe demonstrates increase in maximum dimension now measuring 2.4 cm with increase in TI-RADS category now 5. Nodule is amenable to biopsy if not already performed. 2. Nodule in the lower pole of the right thyroid lobe (nodule #2) measures up to 1.3 cm with a TI-RADS Category 3. Nodule does not require follow-up. 3. Nodule in the lower pole of the right thyroid lobe (nodule #3) demonstrates decrease in maximum dimension measuring 2.0 cm with a stable TI-RADS category of 4. Nodule is amenable to biopsy if not already performed. 4. Nodule in the midportion of the left thyroid lobe demonstrate slight increase in maximum dimension measuring 1.3 cm with a TI-RADS category of 3. Nodule does not require follow-up. 5. Bilateral thyroid lobes demonstrate a heterogeneous echotexture with increased vascularity of the left thyroid lobe. 6. No lymphadenopathy noted. ACR TI-RADS RECOMMENDATION REFERENCE: Ultrasound-guided fine-needle aspiration, follow up ultrasound, no further followup. * TR3 (3 points): FNA if more than or equal to 2.5 cm in maximum dimension, follow up ultrasound in 1, 3 and 5 years if 1.5 to 2.4 cm in maximum dimension. * TR4 (4-6 points): FNA if more than or equal to 1.5 cm in maximum dimension, follow up ultrasound in 1, 2, 3 and 5 years if 1 to 1.4 cm in maximum dimension. * TR5 (more than or equal to 7 points): FNA if more than or equal to 1 cm in maximum dimension, follow up ultrasound every year for 5 years if 0.5 to 0.9 cm in maximum dimension. * TR3, TR4 or TR5 nodules that are below the size threshold for follow up receive no followup.
== END 2023-08-20 07:55 | disposition home or self-care (01) ==
LOC: HO.HMGCX 07:54
PROVIDERS: PCP Internal Medicine; Visit Provider Internal Medicine Endocrinology, Diabetes & Metabolism
DX: E04.2 Nontoxic multinodular goiter (principal)
CPT/HCPCS: 76536

== ENCOUNTER 2023-11-06 06:18 | Outpatient (REF) | payer OTHER, SELFPAY ==
[2023-11-06 11:11] LABS: Thyroid Stimulating Hormone 3.32 uIU/mL (0.32-4.0)
== END 2023-11-06 06:19 | disposition home or self-care (01) ==
LOC: HO.HMGCLDS 06:18
PROVIDERS: PCP Internal Medicine; Visit Provider Internal Medicine Endocrinology, Diabetes & Metabolism
DX: E04.2 Nontoxic multinodular goiter (principal)
CPT/HCPCS: 36415; 84439; 84443

== ENCOUNTER 2023-11-14 14:14 | Outpatient (AMB) | payer OTHER, SELFPAY ==
--- NOTE | 2023-11-14 14:15 | MHC.OFFVIS ---
Vital Signs 11/14/23 14:16 Height 5 ft 6 in Weight 207 lb 3.752 oz BMI 33.4 BP 140/82 H Blood Pressure Location Lt brachial Position Sitting Pulse 77 Pulse Source Pulse Oximeter Intake Visit Reasons: F/U NTMNG/CONFIRMED Intake Note: Patient present today for NTMNG follow up visit. Patient previously seen by Dr. Kasper on 11/16/23. Broadcast Supervisor Required: No Accompanied by: Self / Same As Patient Allergies No Known Allergies [No Known Allergies*] Allergy (Verified 11/14/23 14:20) Medication List - Last Reconciled 11/14/23 by Ryan Luis MD atorvastatin 10 mg PO DAILY clotrimazole-betamethasone 1-0.05 % 1 appl topical BID ergocalciferol (vitamin D2) 1 tab 6 days per week, and 2 tabs 1 day per week orally daily; 90 days levothyroxine 75 mcg PO DAILY 90 days HPI Comments Details: 68 YO F who is seen in F/U for a multinodular thyroid. The patient last saw Dr. Kasper on 11/15/2022 Patient underwent FNA biopsy of a R mid pole 2.6 cm nodule 04/02/19 with Cytology consistent with Follicular Lesion of Undetermined Signifigance ([place] Category III). Affirma was benign, with negative malignancy classifiers. She additionally had a RLP 1.3 cm isoechoic nodule and a L mid pole 1.3 cm isoechoic nodule. These nodules were not biopsied as they did not meet indication at the time, with ZOHREH guidelines recommending FNA at 1.5 cm. She had a repeat thyroid US March 2020 which revealed a 1.4 cm RLP hypoechoic nodule, and also a 1.1 cm isthmus hypoechoic nodule. There was additional mention of interval growth of a L pole nodule from subcentimeter to 1.1 cm. She presented for FNA biopsy 06/09/2020 at which time I repeated the US myself. This revealed many pseudonodules, but only 1 true nodule in the RMP. This had not significantly changed from prior, and had actually shrunk from the previous biopsy 04/02/2019 so no repeat FNA biopsy was indicated. She had a repeat thyroid US 06/12/2021 which was read as multiple bilateral nodules, but review of the images reveals again solely 1 true nodule within the RMP, and the remainder pseudonodules. I repeated her US again myself 09/27/2022 with no significant growth of the nodules warranting repeat FNA biopsy. Reports feeling well. She denies any compressive symptoms. She also denies any symptoms of hyper or hypothyroidism. Denies any history of head or neck irradiation. Denies any family history of thyroid cancer. Is currently using Levothyroxine 75 mcg PO daily and is taking this correctly first thing in the morning on an empty stomach. TSH is at goal. Thyroid US: 05/29/2022 Right Thyroid Lobe: 4.6 x 2.0 x 2.1 cm, volume 9.7 mL. Previously 4.7 x 2.0 x 2.0 cm, volume 10.2 mL. Parenchyma: The gland echotexture is heterogeneous. Thyroid vascularity is increased. Left Thyroid Lobe: 3.7 x 1.3 x 1.4 cm, volume 3.5 mL. Previously 3.4 x 1.4 x 1.2 cm, volume 2.9 mL. Parenchyma: The gland echotexture is heterogeneous. Thyroid vascularity is increased. Isthmus: 0.70 cm in maximum AP dimension. Previously 0.7 cm. Estimated total number of nodules greater than or equal to 1 cm: 3. 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 Location: Right superior. ?? ? Size: 1.8 x 1.7 x 1.8 cm, volume 3.0 mL. ?? ? Previously: 1.7 x 1.6 x 1.4 cm, volume 2.0 mL. ?? ? Nodule characteristics: ?? ? Composition: Solid/almost completely solid (2). ?? ? Echogenicity: Cannot be determined (1). ?? ? Shape: Not taller than wide (0). ?? ? Margins: Smooth (0). ?? ? Echogenic Foci: None (0). ?? ? ACR TI-RADS total points: 3. Previous: 3. ?? ? ACR TI-RADS category: 3. Previous: 3. ? Significant change in size (>/= 20% in 2 dimensions and minimal increase of 2 mm or 50% or greater increase in volume): Yes. ?? ? Change in features: No. ?? ? Change in ACR TI-RADS risk category: No. 2.? Location: Right mid/inferior. ?? ? Size: 2.1 x 1.7 x 1.7 cm, volume 3.1 mL. ?? ? Previously: 2.1 x 1.6 x 1.5 cm, volume 2.6 mL. ?? ? Nodule characteristics: ?? ? Composition: Solid (2). ?? ? Echogenicity: Cannot be determined (1). ?? ? Shape: Not taller than wide (0). ?? ? Margins: Smooth (0). ?? ? Echogenic Foci: Punctate echogenic foci (3). ? ACR TI-RADS total points: 6. Previous: 6. ?? ? ACR TI-RADS category: 4. Previous: 4. ? Significant change in size (>/= 20% in 2 dimensions and minimal increase of 2 mm or 50% or greater increase in volume): No. ?? ? Change in features: No. ?? ? Change in ACR TI-RADS risk category: No. 3.? Location: Right mid. ?? ? Size: 0.60 x 0.64 x 0.65 cm, volume 0.13 mL. ?? ? Previously: Not seen on the previous study. ?? ? Nodule characteristics: ?? ? Composition: Solid (2). ?? ? Echogenicity: Hyperechoic (1). ?? ? Shape: Not taller than wide (0). ?? ? Margins: Smooth (0). ?? ? Echogenic Foci: None (0). ? ACR TI-RADS total points: 3. ?? ? ACR TI-RADS category: 3. 4.? Location: Left mid. ?? ? Size: 1.2 x 0.63 x 1.0 cm, volume 0.40 mL. ?? ? Previously: 1.3 x 0.72 x 0.78 cm, volume 0.38 mL. ?? ? Nodule characteristics: ?? ? Composition: Solid (2). ?? ? Echogenicity: Hyperechoic (1). ?? ? Shape: Not taller than wide (0). ?? ? Margins: Smooth (0). ?? ? Echogenic Foci: None (0).? ACR TI-RADS total points: 3. Previous: 3. ?? ? ACR TI-RADS category: 3. Previous: 3. ? Significant change in size (>/= 20% in 2 dimensions and minimal increase of 2 mm or 50% or greater increase in volume): No. ?? ? Change in features: No. ?? ? Change in ACR TI-RADS risk category: No. NODES: No lymphadenopathy is seen in the tissue surrounding the thyroid gland. Labs: Laboratory Tests 05/29/22 08:08 25-OH Vitamin D Total 23.8 TSH 2.24 Free T4 1.37 Currently on 75 ug of levothyroxine. No sx of hypothyroid sx [facility] Medical History (Updated 12/28/22 @ 12:15 by Sharon Smallwood MD) Annual physical exam Normal colonoscopy Normal Pap smear Mammogram normal Hyperlipidemia Multinodular thyroid Vitamin D deficiency Hypothyroidism Surgical History History of skin surgery History of total abdominal hysterectomy and bilateral salpingo-oophorectomy Family History Father No problems noted. Mother No problems noted. 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 There are no palpable thyroid nodules Assessment & Plan Assessment & Plan (1) Multinodular thyroid: Code(s): E04.2 - Nontoxic multinodular goiter Category: Medical Plan: 68-year-old white female with a history of multinodular goiter status post FNA of a right midpole nodule with benign cytology. Recent ultrasound shows potential growth of the right midpole nodule and several other nodules that might meet criteria for biopsy. Plan is to have the patient follow-up with Dr. Kapoor a new refrigerator repair technician, to the practice in 01/2024 with expertise in thyroid ultrasound will perform a follow-up thyroid ultrasound with possible potential FNA of any nodules that need biopsy (2) Hypothyroidism: Comment: f/u with [facility] [place] [place] endo Code(s): E03.9 - Hypothyroidism, unspecified Category: Medical Plan: Currently on 75 mcg levothyroxine. Appears to be clinically biochemically euthyroid Plan is to continue the current therapy Medications: Refilled ergocalciferol (vitamin D2) 1 tab 6 days per week, and 2 tabs 1 day per week orally daily; 90 days 103 caps 11RF E55.9 - Vitamin D deficiency, unspecified Coding Level of Care Code Est Pt Level 3 (73092) Diagnoses Multinodular thyroid E04.2 Hypothyroidism E03.9
[2023-11-14 14:16] VITALS: BP 140/82; PULSE 77; BMI 33.4
== END 2023-11-14 14:42 | disposition home or self-care (01) ==
PROVIDERS: PCP Internal Medicine; Visit Provider Internal Medicine Endocrinology, Diabetes & Metabolism
DX: E04.2 Nontoxic multinodular goiter (principal); E03.9 Hypothyroidism, unspecified
CPT/HCPCS: 99213

== ENCOUNTER → 2023-11-14 14:14 | Outpatient (BNVA) | payer OTHER, SELFPAY | PROVIDERS: PCP Internal Medicine; Visit Provider Internal Medicine Endocrinology, Diabetes & Metabolism ==

== ENCOUNTER 2023-12-30 08:31 | Outpatient (REF) | payer MEDICARE, SELFPAY ==
[2023-12-30 10:07] LABS: MANUAL DIFF FLAG NO
[2023-12-30 10:21] LABS: Basophils Absolute Auto 0.1 X10*3/uL (0.0-0.2); Basophils Percent Auto 0.7 % (0-2); Eosinophils Absolute Auto 0.3 X10*3/uL (0.0-0.4); Eosinophils Percent Auto 4.5 % (0-4); Hematocrit 41.1 % (37.0-47.0); Hemoglobin 13.7 g/dl (12.0-16.0); Imm Gran Abs Auto 0.03 X10*3/uL (0.00-0.03); Imm Gran Pct Auto 0.4 % (0.0-0.4); Lymphocytes Absolute Auto 2.4 X10*3/uL (1.2-4.9); Lymphocytes Percent Auto 33.4 % (20-40); Mean Corpuscular HGB Conc 33.3 g/dl (31.0-35.0); Mean Corpuscular Hemoglobin 31.6 pg (27.0-33.0); Mean Corpuscular Volume 94.9 fL (80.0-98.0); Mean Platelet Volume 11.1 fL (9.4-12.3); Monocytes Absolute Auto 0.5 X10*3/uL (0.1-1.2); Monocytes Percent Auto 6.3 % (2-11); Neutrophils Absolute Auto 3.9 x10*3/uL (2.0-8.3); Neutrophils Percent Auto 54.7 % (45-73); Platelet Count 223 X10*3/uL (160-400); Red Blood Count 4.33 X10*6/uL (4.20-5.50); Red Cell Distribution Width 13.2 % (11.0-16.0); White Blood Count 7.1 X10*3/uL (4.8-10.8)
[2023-12-30 10:31] LABS: Bacteria Urine 4+ (None Seen); RBC Urine 0-2 /HPF (0-2); Squamous Epithelial Cell Urine >20 /HPF (0-2)
[2023-12-30 10:44] LABS: Appearance Urine Cloudy; Color Urine Yellow; Glucose Urine UA Negative (Negative); Leukocyte Esterase Urine Negative (Negative); Nitrite Urine Negative (Negative); PH 6.5 (5.0-9.0); Urine Blood Negative (Negative); Urine Ketones Negative (Negative); Urine Protein Negative (Neg-Trace)
[2023-12-30 10:48] LABS: Alanine Aminotransferase 19 U/L (0-31); Alkaline Phosphatase 101 U/L (39-117); Anion Gap 9 (12-20); Aspartate Amino Transferase 16 U/L (5-31); Bilirubin Total 0.7 mg/dL (0.0-1.0); Blood Urea Nitrogen 22 mg/dL (9-16); Calcium 9.8 mg/dL (8.4-10.2); Carbon Dioxide 31 mmol/L (22-29); Chloride 106 mmol/L (96-108); Cholesterol 161 mg/dL (<200); Estimated Glomerular Filt Rate > 60; Glucose Fasting 98 mg/dL (60-99); HDL Cholesterol 44 mg/dL (>40); LDL Cholesterol Calculated 95 mg/dL (<100); Potassium 4.5 mmol/L (3.3-5.1); Sodium 141 mmol/L (135-145); Total Protein 7.1 g/dL (6.5-8.0); Triglycerides 114 mg/dL (<150)
== END 2023-12-30 08:32 | disposition home or self-care (01) ==
LOC: HO.HMGCLDS 08:31
PROVIDERS: PCP Internal Medicine; Visit Provider Internal Medicine
DX: Z00.00 Encounter for general adult medical examination without abnormal findings (principal); E78.5 Hyperlipidemia, unspecified; E03.9 Hypothyroidism, unspecified
CPT/HCPCS: 36415; 80053; 80061; 81001; 85025

== ENCOUNTER 2024-01-02 07:56 | Outpatient (AMB) | payer MEDICARE, SELFPAY ==
[2024-01-02 08:07] VITALS: BP 126/74; PULSE 84; O2SAT 97; BMI 33.4
--- NOTE | 2024-01-02 08:07 | A.OFFPC_ITS ---
Vital Signs 01/02/24 08:07 Height 5 ft 6 in Weight 207 lb BMI 33.4 BP 126/74 Blood Pressure Location Rt brachial Position Sitting Pulse 84 Pulse Source Pulse Oximeter Pulse Oximetry (%) 97 Oxygen Delivery Method Room Air Intake Visit Reasons: PE Intake Note: Pt is here today for PE. Allergies No Known Allergies [No Known Allergies*] Allergy (Verified 01/02/24 08:08) Medication List - Last Reconciled 01/02/24 by Sharon Smallwood MD atorvastatin 10 mg PO DAILY clotrimazole-betamethasone 1-0.05 % 1 appl topical BID ergocalciferol (vitamin D2) 1 tab 6 days per week, and 2 tabs 1 day per week orally daily; 90 days levothyroxine 75 mcg PO DAILY 90 days Tobacco use date assessed: 01/02/24 Fall risk assessment: 1 Fall in past year Last assessed Fall Risk: 01/02/24 Dental Screening Dental Screen Date: 01/02/24 Did you have a dental visit in the last 12 months?: Yes Did you have a dental problem in the last 6 months where you did not have access to dental care?: No Was dental information given to patient?: Patient has dentist HPI PE HPI Details Pt presents for PE[facility] Medical History Annual physical exam Normal colonoscopy Normal Pap smear Mammogram normal Hyperlipidemia Multinodular thyroid Vitamin D deficiency Hypothyroidism Surgical History History of skin surgery History of total abdominal hysterectomy and bilateral salpingo-oophorectomy Family History Father No problems noted. Mother No problems noted. 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 1. Little interest or pleasure in doing things: not at all 2. Feeling down, depressed, or hopeless: not at all 3. Trouble falling or staying asleep, or sleeping too much: not at all 4. Feeling tired or having little energy: not at all 5. Poor appetite or overeating: not at all 6. Feeling bad about yourself - or that you are a failure or have let yourself or your family down: not at all 7. Trouble concentrating on things, such as reading the newspaper or watching television: not at all 8. Moving or speaking so slowly that other people could have noticed. Or the opposite - being so fidgety or restless that you have been moving around a lot more than usual: not at all 9. Thoughts that you would be better off or of hurting yourself in some way: not at all Total score: 0 Depression Screening Interpretation: Negative Depression Screening Done: Yes Source: Developed by Drs. Ryan Roberson, Bertha Correa, Ugo García and colleagues, with an educational aileen from [employer]. Thrive Questionnaire Date Thrive assessed: 01/02/24 I am a: Patient What is your living situation today?: I have a steady place to live Within the past 12 months, did the food you bought not last and you didn't have the money to get more?: Never true Within the past 12 months, did you worry whether your food would run out before you got money to buy more?: Never true Do you have trouble paying for medicines?: No Do you have trouble getting transportation to medical appointments?: No Do you have trouble paying your heating and electricity bill?: No Do you have trouble taking care of your child, family member or friend?: No Do you have trouble with day-to-day activities such as bathing, preparing meals, shopping, managing finances, etc.?: No Are you currently unemployed and looking for a job?: No Are you interested in more education?: No Please select the resources that you would like help with: Housing/Custodial Currently or been in a relationship where the following occur: No concerns reported THRIVE Score: 0 AUDIT C Alcohol Use Questionnaire (AUDIT-C) 1. How often do you have a drink containing alcohol?: Monthly or less 2. How many drinks containing alcohol do you have on a typical day when you are drinking?: 1 or 2 3. How often do you have six or more drinks on one occasion?: Never Total Score: 1 MATT-7 AMB Questionnaire MATT-7 Date MATT - 7 assessed: 01/02/24 Feeling nervous, anxious, or on edge: 0 = Not at all Not being able to stop or control worryin = Not at all Worrying too much about different things: 0 = Not at all Trouble relaxin = Not at all Being so restless that it is hard to sit still: 0 = Not at all Becoming easily annoyed or irritable: 0 = Not at all Feeling afraid as if something awful might happen: 0 = Not at all Total MATT-7 score (0-4 normal; 5-9 mild; 10-14 moderate; 15-21 severe): 0 Source: Developed by Drs. Ryan Roberson, Bertha Correa, Ugo García and colleagues, with an educational aileen from [employer]. Review of Systems Const All systems reviewed & are unremarkable except as noted in HPI and below Eyes Reports no additional complaints ENT Reports no additional complaints Card Reports no additional complaints Resp Reports no additional complaints GI Reports no additional complaints Reports no additional complaints Physical exam (Primary Care) Vital Signs: Last Vital Signs Pulse 84 01/02/24 08:07 BP 126/74 01/02/24 08:07 Pulse Ox 97 01/02/24 08:07 Oxygen Delivery Method Room Air 01/02/24 08:07 BMI result Body Mass Index 33.4 Tobacco/Smoking Status: Tobacco use Status Tobacco use date assessed 01/02/24 01/02/24 08:12 Patient Tobacco Use Status Never used Tobacco 01/02/24 08:12 e-Cigarette/Vaping Use Never Used 01/02/24 08:12 PHQ-9: PHQ-9 Score PHQ-9: Total score 0 01/02/24 08:31 Depression Screening Interpretation: Negative Thrive Assessment: Date of Thrive Assessment Date Thrive assessed 01/02/24 01/02/24 08:12 Currently or been in a relationship where the following occur: No concerns reported Const General: no acute distress HENMT Head: Yes normal to inspection Face and sinus: Yes normal facial exam Mouth: Normal oral and palatal mucosa present Neck Neck: Yes no lymphadenopathy and Yes supple Resp Effort & Inspection: normal respiratory effort Auscultation: clear to auscultation bilaterally Cardio Rhythm: regular rhythm Heart sounds: S1 normal heart sound present and S2 normal heart sound present GI Inspection: Yes normal to inspection Palpation (GI): Soft to palpation Percussion: Yes normal to percussion Auscultation: normal bowel sounds Immunizations pneumoc 20-demar conj-dip cr(PF) 0.5 mL IM syringe Performing Provider: Sharon Smallwood MD [facility] Administered by: SCOTT Barkley on 01/02/24 08:48 Dose Route Admin Location Dispensed Lot Number Expiration Date NDC Lopper 0.5 mL IM Right Deltoid 0.5 mL [id number] 11/30/24 2477-6988-34 Microdermis/Vigster VIS Given Date VIS Provided VIS Publication Date 01/02/24 Single Vaccine 21 Eligibility Eligibility Date Funding Source Not [facility] Eligible 01/02/24 Private Assessment and Plan Assessment & Plan (1) Normal colonoscopy: Comment: , 04/2019 (2) Annual physical exam: Code(s): Z00.00 - Encounter for general adult medical examination without abnormal findings Plan: Well-balanced diet regular exercise weight loss discussed with the patient. She is up-to-date with mammogram colonoscopy and had a DEXA by ob gyn physician assistant. (3) Hyperlipidemia: Code(s): E78.5 - Hyperlipidemia, unspecified Plan: Continue statin (4) Multinodular thyroid: Comment[place] [facility] [place] Code(s): E04.2 - Nontoxic multinodular goiter Plan: Follow-up with endocrinology Orders: Orders Pneumococcal 20 Immunization Today Z23 - Encounter for immunization Comprehensive [place]. Panel Fast 1 Year E04.2 - Nontoxic multinodular goiter, E78.5 - Hyperlipidemia, unspecified, Z00.00 - Encounter for general adult medical examination without abnormal findings TSH reflex Free T4 1 Year E04.2 - Nontoxic multinodular goiter, E78.5 - Hyperlipidemia, unspecified, Z00.00 - Encounter for general adult medical examination without abnormal findings Complete Blood Count Auto Diff 1 Year E04.2 - Nontoxic multinodular goiter, E78.5 - Hyperlipidemia, unspecified, Z00.00 - Encounter for general adult medical examination without abnormal findings Lipid Panel 1 Year E04.2 - Nontoxic multinodular goiter, E78.5 - Hyperlipidemia, unspecified, Z00.00 - Encounter for general adult medical examination without abnormal findings Vitamin D 25-OH Total 1 Year E04.2 - Nontoxic multinodular goiter, E78.5 - Hyperlipidemia, unspecified, Z00.00 - Encounter for general adult medical examination without abnormal findings UA w Microscopic 1 Year E04.2 - Nontoxic multinodular goiter, E78.5 - Hyperlipidemia, unspecified, Z00.00 - Encounter for general adult medical examination without abnormal findings Coding Level of Care Code Est Pt Prev Care >65y(39846) Diagnoses Normal colonoscopy Annual physical exam Z00.00 Hyperlipidemia E78.5 Multinodular thyroid E04.2
== END 2024-01-02 08:57 | disposition home or self-care (01) ==
PROVIDERS: PCP Internal Medicine; Visit Provider Internal Medicine
DX: Z00.00 Encounter for general adult medical examination without abnormal findings (principal); E78.5 Hyperlipidemia, unspecified; E04.2 Nontoxic multinodular goiter; Z23 Encounter for immunization
CPT/HCPCS: 90471; 90677; 99214; 99397

== ENCOUNTER 2024-02-14 09:48 | Outpatient (AMB) | payer MEDICARE, SELFPAY ==
[2024-02-14 09:51] VITALS: BP 138/86; PULSE 73; BMI 33.6
--- NOTE | 2024-02-14 09:51 | A.OFFVIS_ITS ---
Vital Signs 02/14/24 09:51 Height 5 ft 6 in Weight 207 lb 14.334 oz BMI 33.6 BP 138/86 Blood Pressure Location Lt brachial Position Sitting Pulse 73 Pulse Source Pulse Oximeter Intake Visit Reasons: Nontoxic multinodular goiter-confirmed Intake Note: New patient present today for Nontoxic multinodular goiter office visit. Director Post Required: No Accompanied by: Self / Same As Patient Allergies No Known Allergies [No Known Allergies*] Allergy (Verified 02/14/24 09:57) Medication List - Last Reconciled 02/14/24 by Claudette Kapoor MD atorvastatin 10 mg PO DAILY clotrimazole-betamethasone 1-0.05 % 1 appl topical BID ergocalciferol (vitamin D2) 1 tab 6 days per week, and 2 tabs 1 day per week orally daily; 90 days levothyroxine 75 mcg PO DAILY 90 days HPI Comments Details: 68 YO F who is seen in F/U for a multinodular thyroid. The patient was previously seeing Dr. Kasper, last was by Dr. Luis 11/24. Also has hypothyrodism. Currently on levothyroxine 75 mcg daily for at least 10 years , takes it in the morning but with orange juice, adherent. TSH is at goal. Weight: gained some initially but now with weight watchers getting back on track, bowel movements are regular, no heat or cold intolerance, mood/energy normal, no skin or hair changes. No palpitations, no tremors. With regards to the multinodular goiter initial diagnosis 2018. Patient underwent FNA biopsy of a R mid pole 2.6 cm nodule 04/02/19 with Cytology consistent with Follicular Lesion of Undetermined Signifigance (Flippin Category III). Affirma was benign, with negative malignancy classifiers. She additionally had a RLP 1.3 cm isoechoic nodule and a L mid pole 1.3 cm isoechoic nodule. These nodules were not biopsied as they did not meet indication at the time, with ZOHREH guidelines recommending FNA at 1.5 cm. She had a repeat thyroid US March 2020 which revealed a 1.4 cm RLP hypoechoic nodule, and also a 1.1 cm isthmus hypoechoic nodule. There was additional mention of interval growth of a L pole nodule from subcentimeter to 1.1 cm. She presented for FNA biopsy 06/09/[address] Kasper repeated the US . This revealed many pseudonodules, but only 1 true nodule in the RMP. This had not significantly changed from prior, and had actually shrunk from the previous biopsy 04/02/2019 so no repeat FNA biopsy was indicated. She had a repeat thyroid US 06/12/2021 which was read as multiple bilateral nodules, but review of the images reveals again solely 1 true nodule within the RMP, and the remainder pseudonodules. Dr. Kasper again repeated her US again 09/27/2022 with no significant growth of the nodules warranting repeat FNA biopsy. Most recent thyroid ultrasound August of 2023 again showed multiple bilateral thy roid nodules. I reviewed the images myself, she does seem to have a very heterogenous gland so it is hard to distinguish true nodules from pseudo nodules. The right midpole nodule has increased significantly in size from 1.8 cm in the maximum dimension to 2.4 cm now. However back in 2018 when this was biopsied it was apparently 2.6 cm in size. Likely there has been discrepancy in size due to the heterogeneity of her thyroid gland. She also has a right lower lobe 2 cm nodule, which is solid, hyperechoic, with some echogenic foci categorized as a TR 4 nodule. Reports feeling well. She denies any compressive symptoms. Denies any history of head or neck irradiation. Sister had thyroid surgery not cancer. Denies any family history of thyroid cancer. Review of systems Constitutional: no fevers, chills or weight loss HEENT: no changes in vision Cardiac: No chest pain, discomfort or palpitations. Pulmonary: No SOB GI:No abdominal pain, no nausea or vomiting, no anorexia, no blood in stool : no burning micturition, dysuria or increase in urinary frequency Physical exam General: sitting comfortably in no acute distress HEENT: normocephalic/atraumatic Neck: supple, palpable 1-2 cm left-sided nodule Cardiac: normal heart sounds Pulm: normal breath sounds B/L, no added breath sounds Abd: not distended, no tenderness Extremities: no edema, no signs of myxedema Neuro: AAO x3, Speech: normal, no facial droop, moving all 4 extremities COUNTS INCLUDE 234 BEDS AT THE [facility] Medical History Annual physical exam Normal colonoscopy Normal Pap smear Mammogram normal Hyperlipidemia Multinodular thyroid Vitamin D deficiency Hypothyroidism Surgical History History of skin surgery History of total abdominal hysterectomy and bilateral salpingo-oophorectomy Family History Father No problems noted. Mother No problems noted. 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 The right midpole nodule has increased significantly in size from 1.8 cm in the maximum dimension to 2.4 cm now. However back in 2019 when this was biopsied it was apparently 2.6 cm in size. Likely there has been discrepancy in size due to the heterogeneity of her thyroid gland. She also has a right lower lobe 2 cm nodule, which is solid, hyperechoic, with some echogenic foci categorized as a TR 4 nodule. CLINICAL INFORMATION: Nontoxic multinodular goiter. COMPARISON: Ultrasound soft tissue head/neck thyroid dated 09/27/2022 and 05/29/2022. TECHNIQUE: Linear transducer grayscale and color Doppler examination with attention to the region of the thyroid. FINDINGS: SIZE: Measurements of the thyroid lobes and nodules are given in sagittal, anteroposterior and transverse dimensions respectively. Right Thyroid Lobe: 4.1 x 2.0 x 1.9 cm, volume 7.9 mL. Previously (09/27/2022) 3.7 x 2.4 x 2.0 cm, volume 9.3 mL. Previously (05/29/2022) 4.6 x 2.0 x 2.1 cm, volume 9.7 mL. Parenchyma: The gland echotexture is heterogeneous. Thyroid vascularity is increased. Left Thyroid Lobe: 3.6 x 1.5 x 1.3 cm, volume 3.6 mL. Previously(09/27/2022) 3.0 x 1.1 x 1.1 cm, volume 1.9 mL. Previously (05/29/2022) 3.7 x 1.3 x 1.4 cm, volume 3.5 mL. Parenchyma: The gland echotexture is heterogeneous. Thyroid vascularity is increased. Isthmus: 0.71 cm in maximum AP dimension. Previously(09/27/2022) 0.50 CM.. Previously (05/29/2022) 0.70 cm. Estimated total number of nodules greater than or equal to 1 cm: 4. Coin Box Collector nodules are described as follows: 1. Location: Right mid. Size: 2.4 x 1.8 x 2.0 cm, volume 4.4 mL. Previously (05/29/2022): 1.8 x 1.7 x 1.8 cm, volume 3.0 mL. Nodule characteristics: Composition: Solid/almost completely solid (2). Echogenicity: Hypoechoic (2). Shape: Not taller than wide (0). Margins: Smooth (0). Echogenic Foci: Punctate echogenic foci (3). ACR TI-RADS total points: 7 Previous: 3 ACR TI-RADS category: 5 Previous: 3 Significant change in size (>/= 20% in 2 dimensions and minimal increase of 2 mm or 50% or greater increase in volume): Yes Change in features: Yes Change in ACR TI-RADS risk category: Yes 2. Location: Right inferior. Size: 1.3 x 0.8 x 0.91 cm, volume 0.50 mL. Previously: Not seen on the previous study. Nodule characteristics: Composition: Mixed cystic and solid (1). Echogenicity: Hypoechoic (2). Shape: Not taller than wide (0). Margins: Smooth (0). Echogenic Foci: None (0). ACR TI-RADS total points: 3 ACR TI-RADS category: 3 3. Location: Right inferior. Size: 2.0 x 1.7 x 1.6 cm, volume 2.8 mL. Previously (05/29/2022): 2.1 x 1.7 x 1.7 cm, volume 3.1 mL. Nodule characteristics: Composition: Solid (2). Echogenicity: Cannot be determined (1). Shape: Not taller than wide (0). Margins: Smooth (0). Echogenic Foci: Punctate echogenic foci (3). ACR TI-RADS total points: 6 Previous: 6 ACR TI-RADS category: 4 Previous: 4 Significant change in size (>/= 20% in 2 dimensions and minimal increase of 2 mm or 50% or greater increase in volume): No Change in features: No Change in ACR TI-RADS risk category: No 4. Location: Left mid. Size: 1.3 x 0.8 x 1.0 cm, volume 0.55 mL. Previously (05/29/2022): 1.2 x 0.63 x 1.0 cm, volume 0.40 mL. Nodule characteristics: Composition: Solid (2). Echogenicity: Hyperechoic (1). Shape: Not taller than wide (0). Margins: Smooth (0). Echogenic Foci: None (0). ACR TI-RADS total points: 3 Previous: 3 ACR TI-RADS category: 3 Previous: 3 Significant change in size (>/= 20% in 2 dimensions and minimal increase of 2 mm or 50% or greater increase in volume): No Change in features: No Change in ACR TI-RADS risk category: No NODES: No lymphadenopathy is seen in the tissue surrounding the thyroid gland. US/US thyroid IMPRESSION: 1. Nodule in the midportion of the right thyroid lobe demonstrates increase in maximum dimension now measuring 2.4 cm with increase in TI-RADS category now 5. Nodule is amenable to biopsy if not already performed. 2. Nodule in the lower pole of the right thyroid lobe (nodule #2) measures up to 1.3 cm with a TI-RADS Category 3. Nodule does not require follow-up. 3. Nodule in the lower pole of the right thyroid lobe (nodule #3) demonstrates decrease in maximum dimension measuring 2.0 cm with a stable TI-RADS category of 4. Nodule is amenable to biopsy if not already performed. 4. Nodule in the midportion of the left thyroid lobe demonstrate slight increase in maximum dimension measuring 1.3 cm with a TI-RADS category of 3. Nodule does not require follow-up. 5. Bilateral thyroid lobes demonstrate a heterogeneous echotexture with increased vascularity of the left thyroid lobe. 6. No lymphadenopathy noted. Assessment & Plan Assessment & Plan (1) Multinodular thyroid: Code(s): E04.2 - Nontoxic multinodular goiter Category: Medical Plan: Patient with no personal history of head or neck radiation, with no family history of thyroid cancer who is coming in for follow up of multinodular goiter. She was diagnosed with thyroid nodules in 2019, at that time she was noted to have multiple thyroid nodules, labs she had a right dominant 2.6 cm nodule which was biopsied in March of 2019 which came back as atypia of undetermined significance (Flippin 3), with a Afirma benign. Subsequently she had many repeat ultrasounds however most of her nodules were thought to be pseudonodules due to the heterogenous appearance of her thyroid gland. Some of these thyroid ultrasounds were repeated by Dr. Kasper herself. Her most recent thyroid ultrasound was from August 2023, this again shows the right mid pole 2.4 cm no dule which has now significantly increased in size but as per documentation back in 2019 this was 2.6 cm in size, hence the size discrepancy could be due to heterogeneity of appearance. This has been biopsied before, we will hold off on repeating the biopsy. We also reviewed the images, I agree with the 2 cm right lower lobe nodule, which is solid, hyperechoic, with some punctate echogenic foci, TR 4 category, ZOHREH high suspicion risk, hence we will proceed with biopsy of this nodule at this time. I explained that it is common to have thyroid nodules. About 95% of the time these nodules are benign. However if the nodule is > 1 cm in size or suspicious on ultrasound then a fine need aspiration biopsy is recommended. We discussed that a FNAB involves 4-5 passes with a small gauge needle and material obtained is sent off for cytology.If the cytopathology is benign then the nodule will be followed annually with repeat ultrasounds. However if it is suspicious or malignant, we will need to discuss further management. Indeterminate cytology can be further investigated with repeat FNA, genetic testing or empiric lobectomy. Malignant cytology is managed with either lobectomy or total thyroidectomy. We discussed briefly that thyroid cancer is, in most patients, an indolent disease that does not affect mortality. We will arrange for FNA at next available opening of the right lower lobe 2 cm nodule and patient will follow up with me in clinic thereafter for results and further decision making. 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 Currently on levothyroxine 75 mcg daily. She is biochemically euthyroid. Plan: -continue levothyroxine 75 mcg daily Plan I spent 30 minutes in reviewing the record, seeing the patient and documenting in the medical record. 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
== END 2024-02-14 10:33 | disposition home or self-care (01) ==
PROVIDERS: PCP Internal Medicine; Visit Provider Student in an Organized Health Care Education/Training Program
DX: E04.2 Nontoxic multinodular goiter (principal); E06.3 Autoimmune thyroiditis
CPT/HCPCS: 99214

== ENCOUNTER → 2024-02-14 09:48 | Outpatient (BNVA) | payer MEDICARE, SELFPAY | PROVIDERS: PCP Internal Medicine; Visit Provider Student in an Organized Health Care Education/Training Program | DX: E04.2 Nontoxic multinodular goiter (principal); E06.3 Autoimmune thyroiditis | CPT/HCPCS: 99212 ==

== ENCOUNTER 2024-03-18 08:54 | Outpatient (REF) | payer MEDICARE, SELFPAY ==
--- NOTE | 2024-03-18 09:44 | PM.PROC ---
Brief Operative Note Date of procedure: 03/18/24 Pre-op diagnosis: right lower lobe 2 cm thyroid nodule FNA biopsy Post-op diagnosis: same Procedure: THYROID FINE NEEDLE ASPIRATION PROCEDURE NOTE ? PROCEDURE PERFORMED: Ultrasound-guided FNA of thyroid nodule ? OPERATORS: Dr. Claudette Kapoor ? INDICATION: right lower lobe 2 cm thyroid nodule FNA biopsy ; FNA performed to assess for malignancy ? DESCRIPTION OF PROCEDURE: The indications for FNA (to assess for malignancy) were reviewed with the patient in detail. Potential complications (e.g., bleeding, infection, damage to local structures, absence of clear diagnosis after FNA) were reviewed. Alternatives to FNA including conservative observation or surgery were described. The patient understood and agreed to proceed. This was documented by the signing of the written informed consent form. A time-out was performed to confirm the patient's identity and the site of planned FNA. The nodule of interest was identified using ultrasound (14 MHz linear array probe). The site of FNA was then draped in the usual fashion and carefully cleaned and prepared using alcohol swabs. The skin and subcutaneous tissue at the previously-identified site of needle insertion were iced and sprayed with numbing spray. Under ultrasound guidance, __4 passes were performed using a 1.5-inch, 25-gauge needle, and sample was obtained via capillary action. The needle tip was clearly visualized to be within the nodule at the time of sampling for _4_ of _4_ passes The patient tolerated the procedure well. There were no immediate complications. A small adhesive bandage was applied, and the patient was advised to take acetaminophen (rather than NSAIDs) for any discomfort and to report any signs of inflammation/infection or marked swelling. IMPRESSION: Technically successful ultrasound-guided fine needle aspiration of right lower lobe 2 cm thyroid nodule. PLAN: The patient was advised that I will provide follow-up regarding the cytology result and any subsequent plans. Dr. Claudette Kapoor Condition: stable Disposition: same day
== END 2024-03-18 08:55 | disposition home or self-care (01) ==
LOC: HO.US 08:54
PROVIDERS: PCP Internal Medicine; Visit Provider Student in an Organized Health Care Education/Training Program
DX: E04.2 Nontoxic multinodular goiter (principal)
CPT/HCPCS: 10005; 88173; 88305

== ENCOUNTER → 2024-03-18 08:54 | Outpatient (BNV) | payer MEDICARE, SELFPAY | PROVIDERS: PCP Internal Medicine; Visit Provider Student in an Organized Health Care Education/Training Program | DX: E04.2 Nontoxic multinodular goiter (principal) | CPT/HCPCS: 10005 ==

== ENCOUNTER 2024-04-01 13:24 | Outpatient (AMB) | payer MEDICARE, SELFPAY ==
[2024-04-01 13:26] VITALS: BP 140/82; PULSE 76; BMI 34.0
--- NOTE | 2024-04-01 13:26 | MHC.OFFVIS ---
Vital Signs 04/01/24 13:26 Height 5 ft 6 in Weight 210 lb 15.718 oz BMI 34.0 BP 140/82 H Blood Pressure Location Rt brachial Position Sitting Pulse 76 Pulse Source Pulse Oximeter Intake Visit Reasons: Biopsy follow up-lvm Intake Note: Patient present today for biopsy follow up visit. Dementia Program Director Required: No Accompanied by: Self / Same As Patient Allergies No Known Allergies [No Known Allergies*] Allergy (Verified 04/01/24 13:30) HPI Comments Details: 68 YO F who is seen in F/U for a multinodular thyroid. She is here to discuss results of the recent FNA biopsy of the right lower pole nodule. Als ohas hypothyrodism. Currently on levothyroxine 75 mcg daily for at least 10 years , takes it in the morning but with orange juice, adherent. TSH is at goal. Weight: gained some initially but now with weight watchers getting back on track, bowel movements are regular, no heat or cold intolerance, mood/energy normal, no skin or hair changes. No palpitations, no tremors. With regards to the multinodular goiter initial diagnosis 2018. Patient underwent FNA biopsy of a R mid pole 2.6 cm nodule 04/02/19 with Cytology consistent with Follicular Lesion of Undetermined Signifigance (Strum Category III). Affirma was benign, with negative malignancy classifiers. She additionally had a RLP 1.3 cm isoechoic nodule and a L mid pole 1.3 cm isoechoic nodule. These nodules were not biopsied as they did not meet indication at the time, with ZOHREH guidelines recommending FNA at 1.5 cm. She had a repeat thyroid US March 2020 which revealed a 1.4 cm RLP hypoechoic nodule, and also a 1.1 cm isthmus hypoechoic nodule. There was additional mention of interval growth of a L pole nodule from subcentimeter to 1.1 cm. She presented for FNA biopsy 06/09/[address] Kasper repeated the US . This revealed many pseudonodules, but only 1 true nodule in the RMP. This had not significantly changed from prior, and had actually shrunk from the previous biopsy 04/02/2019 so no repeat FNA biopsy was indicated. She had a repeat thyroid US 06/12/2021 which was read as multiple bilateral nodules, but review of the images reveals again solely 1 true nodule within the RMP, and the remainder pseudonodules. Dr. Kasper again repeated her US again 09/27/2022 with no significant growth of the nodules warranting repeat FNA biopsy. Most recent thyroid ultrasound August of 2023 again showed multiple bilateral thyroid nodules. I reviewed the images myself, she does seem to have a very heterogenous gland so it is hard to distinguish true nodules from pseudo nodules. The right midpole nodule has increased significantly in size from 1.8 cm in the maximum dimension to 2.4 cm now. However back in 2018 when this was biopsied it was apparently 2.6 cm in size. Likely there has been discrepancy in size due to the heterogeneity of her thyroid gland. She also has a right lower lobe 2 cm nodule, which is solid, hyperechoic, with some echogenic foci categorized as a TR 4 nodule. Underwent FNA of the right lower pole 2 cm nodule on Reports feeling well. She denies any compressive symptoms. Denies any history of head or neck irradiation. Sister had thyroid surgery not cancer. Denies any family history of thyroid cancer. Review of systems Constitutional: no fevers, chills or weight loss HEENT: no changes in vision Cardiac: No chest pain, discomfort or palpitations. Pulmonary: No SOB GI:No abdominal pain, no nausea or vomiting, no anorexia, no blood in stool : no burning micturition, dysuria or increase in urinary frequency Physical exam General: sitting comfortably in no acute distress HEENT: normocephalic/atraumatic Neck: supple, palpable 1-2 cm left-sided nodule Cardiac: normal heart sounds Pulm: normal breath sounds B/L, no added breath sounds Abd: not distended, no tenderness Extremities: no edema, no signs of myxedema Neuro: AAO x3, Speech: normal, no facial droop, moving all 4 extremities Laboratory Tests 11/06/23 06:24 TSH 3.32 Free T4 1.10 US THYROID 08/24 I reviewed the images myself, she does seem to have a very heterogenous gland so it is hard to distinguish true nodules from pseudo nodules. The right midpole nodule has increased significantly in size from 1.8 cm in the maximum dimension to 2.4 cm now. However back in 2018 when this was biopsied it was apparently 2.6 cm in size. Likely there has been discrepancy in size due to the heterogeneity of her thyroid gland. She also has a right lower lobe 2 cm nodule, which is solid, hyperechoic, with some echogenic foci categorized as a TR 4 nodule. CLINICAL INFORMATION: Nontoxic multinodular goiter. COMPARISON: Ultrasound soft tissue head/neck thyroid dated 09/27/2022 and 05/29/2022. TECHNIQUE: Linear transducer grayscale and color Doppler examination with attention to the region of the thyroid. FINDINGS: SIZE: Measurements of the thyroid lobes and nodules are given in sagittal, anteroposterior and transverse dimensions respectively. Right Thyroid Lobe: 4.1 x 2.0 x 1.9 cm, volume 7.9 mL. Previously (09/27/2022) 3.7 x 2.4 x 2.0 cm, volume 9.3 mL. Previously (05/29/2022) 4.6 x 2.0 x 2.1 cm, volume 9.7 mL. Parenchyma: The gland echotexture is heterogeneous. Thyroid vascularity is increased. Left Thyroid Lobe: 3.6 x 1.5 x 1.3 cm, volume 3.6 mL. Previously(09/27/2022) 3.0 x 1.1 x 1.1 cm, volume 1.9 mL. Previously (05/29/2022) 3.7 x 1.3 x 1.4 cm, volume 3.5 mL. Parenchyma: The gland echotexture is heterogeneous. Thyroid vascularity is increased. Isthmus: 0.71 cm in maximum AP dimension. Previously(09/27/2022) 0.50 CM.. Previously (05/29/2022) 0.70 cm. Estimated total number of nodules greater than or equal to 1 cm: 4. Shop Hand nodules are described as follows: 1. Location: Right mid. Size: 2.4 x 1.8 x 2.0 cm, volume 4.4 mL. Previously (05/29/2022): 1.8 x 1.7 x 1.8 cm, volume 3.0 mL. Nodule characteristics: Composition: Solid/almost completely solid (2). Echogenicity: Hypoechoic (2). Shape: Not taller than wide (0). Margins: Smooth (0). Echogenic Foci: Punctate echogenic foci (3). ACR TI-RADS total points: 7 Previous: 3 ACR TI-RADS category: 5 Previous: 3 Significant change in size (>/= 20% in 2 dimensions and minimal increase of 2 mm or 50% or greater increase in volume): Yes Change in features: Yes Change in ACR TI-RADS risk category: Yes 2. Location: Right inferior. Size: 1.3 x 0.8 x 0.91 cm, volume 0.50 mL. Previously: Not seen on the previous study. Nodule characteristics: Composition: Mixed cystic and solid (1). Echogenicity: Hypoechoic (2). Shape: Not taller than wide (0). Margins: Smooth (0). Echogenic Foci: None (0). ACR TI-RADS total points: 3 ACR TI-RADS category: 3 3. Location: Right inferior. Size: 2.0 x 1.7 x 1.6 cm, volume 2.8 mL. Previously (05/29/2022): 2.1 x 1.7 x 1.7 cm, volume 3.1 mL. Nodule characteristics: Composition: Solid (2). Echogenicity: Cannot be determined (1). Shape: Not taller than wide (0). Margins: Smooth (0). Echogenic Foci: Punctate echogenic foci (3). ACR TI-RADS total points: 6 Previous: 6 ACR TI-RADS category: 4 Previous: 4 Significant change in size (>/= 20% in 2 dimensions and minimal increase of 2 mm or 50% or greater increase in volume): No Change in features: No Change in ACR TI-RADS risk category: No 4. Location: Left mid. Size: 1.3 x 0.8 x 1.0 cm, volume 0.55 mL. Previously (05/29/2022): 1.2 x 0.63 x 1.0 cm, volume 0.40 mL. Nodule characteristics: Composition: Solid (2). Echogenicity: Hyperechoic (1). Shape: Not taller than wide (0). Margins: Smooth (0). Echogenic Foci: None (0). ACR TI-RADS total points: 3 Previous: 3 ACR TI-RADS category: 3 Previous: 3 Significant change in size (>/= 20% in 2 dimensions and minimal increase of 2 mm or 50% or greater increase in volume): No Change in features: No Change in ACR TI-RADS risk category: No NODES: No lymphadenopathy is seen in the tissue surrounding the thyroid gland. US/US thyroid IMPRESSION: 1. Nodule in the midportion of the right thyroid lobe demonstrates increase in maximum dimension now measuring 2.4 cm with increase in TI-RADS category now 5. Nodule is amenable to biopsy if not already performed. 2. Nodule in the lower pole of the right thyroid lobe (nodule #2) measures up to 1.3 cm with a TI-RADS Category 3. Nodule does not require follow-up. 3. Nodule in the lower pole of the right thyroid lobe (nodule #3) demonstrates decrease in maximum dimension measuring 2.0 cm with a stable TI-RADS category of 4. Nodule is amenable to biopsy if not already performed. 4. Nodule in the midportion of the left thyroid lobe demonstrate slight increase in maximum dimension measuring 1.3 cm with a TI-RADS category of 3. Nodule does not require follow-up. 5. Bilateral thyroid lobes demonstrate a heterogeneous echotexture with increased vascularity of the left thyroid lobe. 6. No lymphadenopathy noted. [facility] Medical History Annual physical exam Normal colonoscopy Normal Pap smear Mammogram normal Hyperlipidemia Multinodular thyroid Vitamin D deficiency Hypothyroidism Surgical History History of skin surgery History of total abdominal hysterectomy and bilateral salpingo-oophorectomy Family History Father No problems noted. Mother No problems noted. 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 She was diagnosed with thyroid nodules in 2019, at that time she was noted to have multiple thyroid nodules, labs she had a right dominant 2.6 cm nodule which was biopsied in March of 2019 which came back as atypia of undetermined significance (Strum 3), with a Afirma benign. Subsequently she had many repeat ultrasounds however most of her nodules were thought to be pseudonodules due to the heterogenous appearance of her thyroid gland. Some of these thyroid ultrasounds were repeated by Dr. Kasper herself. Her most recent thyroid ultrasound was from August 2023, this again shows the right mid pole 2.4 cm nodule which has now significantly increased in size but as per documentation back in 2019 this was 2.6 cm in size, hence the size discrepancy could be due to heterogeneity of appearance. This has been biopsied before, we will hold off on repeating the biopsy. We also reviewed the images, and the 2 cm right lower lobe nodule, which is solid, hyperechoic, with some punctate echogenic foci, TR 4 category, ZOHREH high suspicion risk, met FNA criteria. She underwent biopsy of the right lower lobe 2 cm nodule on 03/18/2024 which came back as nondiagnostic cytology Strum category 1.I counseled with the patient that there is a 5-10% chance of malignancy in nondiagnostic samples. I also reassured her that repeating the biopsy yields a diagnostic results 60-80% of the time. We will plan to repeat biopsy of this nodule in 3 months. We will arrange for repeat FNA at next available opening of the right lower lobe 2 cm nodule and patient will follow up with me in clinic thereafter for results and further decision making. 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 Currently on levothyroxine 75 mcg daily. She is biochemically euthyroid. 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
== END 2024-04-01 13:58 | disposition home or self-care (01) ==
LOC: HO.ENCR 13:25
PROVIDERS: PCP Internal Medicine; Visit Provider Student in an Organized Health Care Education/Training Program
DX: E04.2 Nontoxic multinodular goiter (principal); E06.3 Autoimmune thyroiditis
CPT/HCPCS: 99213

== ENCOUNTER → 2024-04-01 13:24 | Outpatient (BNVA) | payer MEDICARE, SELFPAY | PROVIDERS: PCP Internal Medicine; Visit Provider Student in an Organized Health Care Education/Training Program | DX: E04.2 Nontoxic multinodular goiter (principal); E06.3 Autoimmune thyroiditis | CPT/HCPCS: 99212 ==

== ENCOUNTER 2024-04-22 08:34 | Outpatient (REF) | payer MEDICARE, SELFPAY ==
[2024-04-22 13:18] LABS: Influenza A PCR NEGATIVE (Negative); Influenza B PCR NEGATIVE (Negative); Resp Syncy Virus RNA Qual PCR NEGATIVE (Negative); SARS COV2 PCR INHOUSE NEGATIVE (Negative)
== END 2024-04-22 08:35 | disposition home or self-care (01) ==
LOC: HO.LAB 08:34
PROVIDERS: PCP Internal Medicine; Visit Provider Physician Assistant
DX: J06.9 Acute upper respiratory infection, unspecified (principal)
CPT/HCPCS: 0241U; 99212

== ENCOUNTER 2024-04-22 08:34 | Outpatient (AMB) | payer MEDICARE, SELFPAY ==
--- NOTE | 2024-04-22 08:36 | AM.OFFWIN_ITS ---
Intake Vital Signs 04/22/24 08:38 Weight 209 lb BP 126/78 Blood Pressure Location Rt brachial Position Sitting Pulse 79 Pulse Source Pulse Oximeter Temp 98.3 F Temp Source Oral Pulse Oximetry (%) 98 Oxygen Delivery Method Room Air Intake Visit Reasons: EP cough, congested for 3 weeks Intake Note: Patient here for cough and congestion that started about 3 weeks ago. Pts grandson is being tested for whooping cough. Patient Tobacco Use Status: Never used Tobacco Allergies No Known Allergies [No Known Allergies*] Allergy (Verified 04/22/24 08:39) Do you need a note to return to daycare/school/sports/work: No HPI HPI Comments History of Present Illness Details The patient is a 69-year-old female presenting with a persistent cough and concern for possible pertussis exposure. The patient reports experiencing a dry cough for approximately two weeks, beginning prior to a recent vacation. During the vacation, she was in close contact with her grandson, who exhibited similar symptoms. Her grandson has been tested for pertussis, as he is asthmatic and was started on prednisone. The patient has not yet received results for his pertussis test nor undergone her own testing. Additionally, she notes mild congestion and a runny nose without sinus or ear pain. She denies any fever or significant shortness of breath, although she has had a mild wheeze occurring at night without impacting her sleep. The patient has a chronic history of asthma but hasn't used an inhaler for approximately 15 to 18 years, as she hasn't felt the need. She declines any significant episodes or exacerbations requiring inhaler use during this current episode. She has utilized xpbq-[id number]-[id number] medications including DayQuil, NyQuil, and Tussing Cough Syrup, which provide some symptom relief, particularly at night. There's no history of recent COVID testing. Her contact with others has been minimal since returning home, and precautions such as wearing a mask have been discussed should exposure confirmation occur. [facility] Medical History Annual physical exam Normal colonoscopy Normal Pap smear Mammogram normal Hyperlipidemia Multinodular thyroid Vitamin D deficiency Hypothyroidism Surgical History History of skin surgery History of total abdominal hysterectomy and bilateral salpingo-oophorectomy Family History Father No problems noted. Mother No problems noted. 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 Current occupational exposures/hazards: No Cognitive needs: No Hearing needs: No Vision needs: Yes Physical Exam Vital Signs: Last Vital Signs Temp 98.3 F 04/22/24 08:38 Pulse 79 04/22/24 08:38 BP 126/78 04/22/24 08:38 Pulse Ox 98 04/22/24 08:38 Oxygen Delivery Method Room Air 04/22/24 08:38 General: Cooperative, healthy appearing, comfortable and no acute distress Orientation/consciousness: Patient oriented x3 Limitations: No limitations Head: Normal to inspection Ears: Hearing grossly normal bilaterally, external ears normal and TM's normal bilaterally, but cerumen noted in the left ear Nose: Normal external nose present, Normal nares present and Runny nose present Face and sinus: Normal facial exam and Yes sinuses nontender Mouth: Normal oral and palatal mucosa present and moist mucous membranes Throat: Yes tonsils normal, Yes uvula midline. Posterior oropharynx erythema and redness noted Eyes: Appearance normal, both eyes and all related structures Neck: Normal visual inspection Respirtory: Clear to auscultation bilaterally. Normal respiratory effort, able to speak in complete sentences, Actively coughing, no respiratory distress, not tachypneic, no tripod positioning and no use of accessory muscles. Cardiovascular: Regular rate and rhythm. Normal S1 and S2 Skin: No rashes or lesions noted Neuro: Patient oriented x3 Extremities: Normal to inspection and Yes no clubbing, cyanosis or edema Assessment & Plan Assessment & Plan (1) URI (upper respiratory infection): Code(s): J06.9 - Acute upper respiratory infection, unspecified Qualifiers: URI type: unspecified URI Qualified Code(s): J06.9 - Acute upper respiratory infection, unspecified Plan: - For the suspected pertussis exposure and accompanying cough, I will administer tests for influenza, COVID-19, and RSV during today's consultation due to the potential exposure settings, including airplane travel. The patient will be advised to await results and to inform us if her grandson's pertussis test returns positive, at which point further testing may be considered. - Initiate treatment with Tessalon Perles benzonatate. The patient will be instructed to take one capsule every eight hours, preferably before bedtime, to manage cough effectively and ensure adequate rest. The Tessalon Perles will be used in conjunction with existing [id number] medications to avoid overlapping active ingredients. - Encourage continuous monitoring of symptoms, particularly the development of any new symptoms or worsening breathing difficulties, given her history of asthma. - The patient should maintain hydration and rest while continuing to wear a mask in public places until further clarity on pertussis exposure is obtained. The patient is advised to self-isolate until the risk of transmission is better assessed. - Follow-up will be required if the patient's symptoms worsen, or if a pertussis diagnosis is confirmed. Swabbing may be arranged pending grandson's results and availability of supplies. Orders: Orders SARS-CoV2/FLU/RSV Today J06.9 - Acute upper respiratory infection, unspecified Medications: New benzonatate 200 mg PO TID PRN 14 caps 0RF cough Coding Level of Care Code Est Pt Level 3 (70883) Diagnoses Upper respiratory tract infection, unspecified type J06.9 URI type: unspecified URI
[2024-04-22 08:38] VITALS: BP 126/78; PULSE 79; TEMP 36.8; O2SAT 98
== END 2024-04-22 09:02 | disposition home or self-care (01) ==
PROVIDERS: PCP Internal Medicine; Visit Provider Physician Assistant
DX: J06.9 Acute upper respiratory infection, unspecified (principal)

== ENCOUNTER 2024-06-24 07:59 | Outpatient (REF) | payer MEDICARE, SELFPAY ==
--- NOTE | 2024-06-24 08:34 | PCN2_ITS ---
Brief Operative Note Date of procedure: 06/24/24 Pre-op diagnosis: right mid/ lower 2 cm thyroid nodule FNA biopsy Procedure: THYROID FINE NEEDLE ASPIRATION PROCEDURE NOTE ? PROCEDURE PERFORMED: Ultrasound-guided FNA of thyroid nodule ? OPERATORS: Dr. Claudette Kapoor ? INDICATION: right mid/ lower 2 cm thyroid nodule ; FNA performed to assess for malignancy ? DESCRIPTION OF PROCEDURE: The indications for FNA (to assess for malignancy) were reviewed with the patient in detail. Potential complications (e.g., bleeding, infection, damage to local structures, absence of clear diagnosis after FNA) were reviewed. Alternatives to FNA including conservative observation or surgery were described. The patient understood and agreed to proceed. This was documented by the signing of the written informed consent form. A time-out was performed to confirm the patient's identity and the site of domonique nned FNA. The nodule of interest was identified using ultrasound (14 MHz linear array probe). The site of FNA was then draped in the usual fashion and carefully cleaned and prepared using alcohol swabs. The skin at the previously-identified site of needle insertion was iced and sprayed with numbing spray. Under ultrasound guidance, _5_ passes were performed using a 1.5-inch, 25-gauge needle, and sample was obtained via capillary action. The needle tip was clearly visualized to be within the nodule at the time of sampling for 4__ of _5_ passes The patient tolerated the procedure well. There were no immediate complications. A small adhesive bandage was applied, and the patient was advised to take acetaminophen (rather than NSAIDs) for any discomfort and to report any signs of inflammation/infection or marked swelling. IMPRESSION: Technically successful ultrasound-guided fine needle aspiration of right mid/ lower 2 cm thyroid nodule FNA biopsy . PLAN: The patient was advised that I will provide follow-up regarding the cytology result and any subsequent plans. Claudette Kapoor MD Endocrinology Attending Condition: stable Disposition: same day
== END 2024-06-24 08:00 | disposition home or self-care (01) ==
LOC: HO.US 07:59
PROVIDERS: PCP Internal Medicine; Visit Provider Student in an Organized Health Care Education/Training Program
DX: E04.2 Nontoxic multinodular goiter (principal)
CPT/HCPCS: 10005; 88173; 88305

== ENCOUNTER → 2024-06-24 07:59 | Outpatient (BNV) | payer MEDICARE, SELFPAY | PROVIDERS: PCP Internal Medicine; Visit Provider Student in an Organized Health Care Education/Training Program | DX: E04.1 Nontoxic single thyroid nodule (principal) | CPT/HCPCS: 10005 ==

== ENCOUNTER → 2024-07-08 13:14 | Outpatient (BNVA) | payer MEDICARE, SELFPAY | PROVIDERS: PCP Internal Medicine; Visit Provider Student in an Organized Health Care Education/Training Program | DX: E04.2 Nontoxic multinodular goiter (principal); E06.3 Autoimmune thyroiditis | CPT/HCPCS: 99212 ==

== ENCOUNTER 2024-10-16 23:58 | Inpatient (IN) | payer MEDICARE, SELFPAY ==
--- NOTE | ~2024-10-16 | XR_ITS ---
CLINICAL HISTORY: sob 1 view chest x-ray Comparison: None Findings: Low lung volumes with mild crowding of the vasculature. No lobar consolidation. No pneumothorax or pleural effusion. Cardiac silhouette is at the upper limits of normal for AP technique. Degenerative changes include imaged shoulders and imaged AC joints. IMPRESSION: Low lung volumes without consolidation. This document has been electronically signed by: Ron Lewis MD on 10/17/2024 01:39:12
--- NOTE | ~2024-10-16 | CT_ITS ---
CLINICAL HISTORY: Hypoxia?pe CT angiography chest with contrast. 3D Postprocessing. Comparison: None Findings: The heart size is normal. RV/LV ratio is normal. The thoracic aorta is normal caliber. No pulmonary artery filling defects. The visualized thyroid and mediastinum are unremarkable. Basilar hypoventilatory changes. No dense consolidation or effusion. The visualized upper abdomen is unremarkable. Chronic appearing T12 compression fracture with a proximally 50% height loss. IMPRESSION: 1. No pulmonary embolus. No acute cardiopulmonary disease. This document has been electronically signed by: Brionna Saini MD on 10/17/2024 06:37:05
[2024-10-17] VITALS (19 sets, daily range): BP systolic 106–158; BP diastolic 57–78; PULSE 88–107; RESP 16–20; TEMP 36.5–37.1; O2SAT 88–95; BMI 32.3
--- NOTE | 2024-10-17 00:04 | ECG_ITS ---
Test Reason : sob Blood Pressure : */* mmHG Vent. Rate : 96 BPM Atrial Rate : 96 BPM P-R Int : 190 ms QRS Dur : 92 ms QT Int : 352 ms P-R-T Axes : 34 -31 11 degrees QTcB Int : 444 ms Normal sinus rhythm Left axis deviation Minimal voltage criteria for LVH, may be normal variant ( [place] product ) Inferior infarct , age undetermined Abnormal ECG When compared with ECG of 14-Jan-2009 07:24, No significant changes seen Referred By: Generic ED Physician Electronically Signed By: CONNOR LEIGH MD
--- NOTE | 2024-10-17 00:13 | ED.SOB ---
HPI - SOB/Dyspnea General Chief Complaint: Dyspnea Stated Complaint: Dyspnea Time Seen by Provider: 10/17/24 00:10 Source: patient Mode of arrival: ambulatory Limitations: no limitations History of Present Illness ED Provider: HPI Narrative: Patient is 69 years old with history hypothyroidism hyperlipidemia, mild asthma no known coronary artery disease comes here for increased shortness a breath started earlier today with obvious wheezing patient had respiratory symptoms 3-4 days ago got better and today noticed increased shortness of breath with wheezing saturating 88% at room on arrival no history of DVT leg swelling no history of heart failure Related Data Previous Rx's ?Medication ?Instructions ?Recorded clotrimazole-betamethasone 1 1 appl topical BID #15 grams 12/28/22 %-0.05 % topical cream ergocalciferol (vitamin D2) 50 mcg See Rx Instructions PO DAILY 90 11/14/23 (2,000 unit) capsule days #103 caps levothyroxine 75 mcg tablet 75 mcg PO DAILY 90 days #90 tabs 12/06/23 benzonatate 200 mg capsule 200 mg PO TID PRN cough #14 caps 04/22/24 atorvastatin 10 mg tablet 10 mg PO DAILY #90 tabs 06/25/24 Allergies Allergy/AdvReac Type Severity Reaction Status Date / Time No Known Allergies Allergy Verified 10/17/24 00:01 [No Known Allergies*] Review of Systems Review of Systems: Yes all other systems are reviewed and are negative PMFSH Past Medical History Medical History Annual physical exam Normal colonoscopy Normal Pap smear Mammogram normal Hyperlipidemia Multinodular thyroid Vitamin D deficiency Hypothyroidism Surgical History History of skin surgery History of total abdominal hysterectomy and bilateral salpingo-oophorectomy Family History Family History Father No problems noted. Mother No problems noted. 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 Oriented X3. No acute distress. Eyes: No pallor or icterus ENT: Pharynx normal. Oral Mucosa moist Neck: Normal inspection. Neck supple. CVS: Normal heart rate and rhythm. Pulses normal. Respiratory: No respiratory distress. Equal air entry bilateral, bilateral wheezing no crackles Abdomen: Soft and nontender. Bowel sounds are present, no mass palpable, no CVA tenderness Skin: Skin warm and dry. Normal skin color. Normal skin turgor. Extremities: No lower extremity edema. No calf tenderness Neuro: Oriented X 3. No motor deficit. No sensory deficit.No cerebellar signs , cranial nerves II-XII intact Medications Administered Discontinued Medications Generic Name Dose Route Start Last Admin Trade Name Freq PRN Reason Stop Dose Admin Albuterol Sulfate 7.5 mg 10/17/24 02:26 10/17/24 02:43 Albuterol Sulfate (0.083%) 2.5 Mg/3 Ml Vial.Neb INHALE 10/17/24 02:27 7.5 mg ONCE ONE Administration Albuterol Sulfate 2.5 mg/ 0 mg 10/17/24 00:19 10/17/24 00:22 Albuterol/Ipratropium 3 ml INHALE 10/17/24 00:20 1 dose ONCE ONE Administration Magnesium Sulfate 2 gm in 50 mls @ 150 mls/hr 10/17/24 02:26 10/17/24 03:00 Magnesium Sulfate/H2o IV 10/17/24 02:45 Infused ONCE ONE Infusion Iohexol 75 ml 10/17/24 06:07 10/17/24 06:08 Iohexol 350 Mg/Ml 100 Ml Infus..Btl IV 10/17/24 06:08 75 ml ONCE ONE Administration Methylprednisolone Sodium Succinate 125 mg 10/17/24 00:20 10/17/24 00:38 Methylprednisolone Sod Succ 125 Mg Vial IVPUSH 10/17/24 00:21 125 mg ONCE ONE Administration Medical Decision Making Medical Decision Making [facility] Narrative: Patient with significant bronchospasm with history of asthma saturating 88% at room air and 92% on 4 L CTA chest negative for PE or infiltrate will admit patient for persistent hypoxia secondary to asthma Differential Diagnosis Differential Diagnoses: The differential diagnosis associated with the presentation includes Asthma exacerbation/acute respiratory failure/PE/CHF Admission/Observation Consideration of admission/observation: Escalation of care including admission/observation considered Consult Healthcare Provider Management of the patient was discussed with: Hospitalist Lab Data [facility] Lab Attestation statement: I reviewed the patient's lab results. 10/17/24 01:00 10/17/24 01:00 Labs: Lab Results 10/17/24 10/17/24 10/17/24 Range/Units 01:00 03:43 03:49 WBC 12.7 H (4.8-10.8) X10*3/uL RBC 4.31 (4.20-5.50) X10*6/uL Hgb 13.6 (12.0-16.0) g/dl Hct 39.8 (37.0-47.0) % MCV 92.3 (80.0-98.0) fL MCH 31.6 (27.0-33.0) pg MCHC 34.2 (31.0-35.0) g/dl RDW 13.4 (11.0-16.0) % Plt Count 188 (160-400) X10*3/uL MPV 10.2 (9.4-12.3) fL Immature Gran % (Auto) 0.3 (0.0-0.4) % Neut % (Auto) 62.8 (45-73) % Lymph % (Auto) 26.5 (20-40) % [place] % (Auto) 6.9 (2-11) % Eos % (Auto) 3.2 (0-4) % Baso % (Auto) 0.3 (0-2) % Lymph # (Auto) 3.4 (1.2-4.9) X10*3/uL [place] # (Auto) 0.9 (0.1-1.2) X10*3/uL Eos # (Auto) 0.4 (0.0-0.4) X10*3/uL Baso # (Auto) 0.0 (0.0-0.2) X10*3/uL Abs Immat Gran (auto) 0.04 H (0.00-0.03) X10*3/uL Absolute Neuts (auto) 8.0 (2.0-8.3) x10*3/uL Absolute Nucleated RBC 0.000 (0.0-0.012) X10*3/uL Nucleated RBC % (auto) 0.0 (0.0-0.2) /100WBC D-Dimer High Sensitivty 296 NG/ML VBG pH 7.41 (7.32-7.43) VBG pCO2 37 mmHg VBG pO2 51 mmHg VBG HCO3 24 (22-26) mmol/L VBG O2 Saturation 80.0 % VBG Base Excess -0.1 mmol/L Sodium 139 (135-145) mmol/L Potassium 3.4 D (3.3-5.1) mmol/L Chloride 105 (96-108) mmol/L Carbon Dioxide 23 (22-29) mmol/L Anion Gap 14 (12-20) BUN 16 (9-16) mg/dL Creatinine 0.77 (0.5-1.4) mg/dL Estim Creat Clear Calc 79.3 Estimated GFR > 60 Random Glucose 145 H (60-115) mg/dL Calcium 8.7 D (8.4-10.2) mg/dL Troponin I High Sens 6.7 (<3.5-17.0) ng/L B-Natriuretic Peptide < 10 (<100) pg/mL Urine Color Yellow Urine Appearance Clear Urine pH 5.5 (5.0-9.0) Ur Specific [place] 1.010 (1.005-1.025) Urine Protein Negative (Neg-Trace) mg/dL Urine Glucose (UA) Negative (Negative) mg/dL Urine Ketones Negative (Negative) mg/dL Urine Blood Negative (Negative) Urine Nitrite Negative (Negative) Ur Leukocyte Esterase Negative (Negative) Influenza Type A (PCR) NEGATIVE (Negative) Influenza Type B (PCR) NEGATIVE (Negative) RSV RNA Qual (PCR) NEGATIVE (Negative) SARS-CoV-2 RNA (RT-PCR) NEGATIVE (Negative) Independent Interpretation I performed an independent interpretation of an: EKG Interpretation: Normal sinus rhythm left axis deviation LVH no acute ST-T changes no acute ischemia ventricular rate 96 beats per minute Radiology Impression Discussion of test interpretation with radiology: I have reviewed the radiologist's reading. Radiologist Impression: Negative for PE or pneumonia Discharge Plan Discharge Clinical Impression: Asthma with exacerbation, Acute hypoxemic respiratory failure Patient Disposition: Admitted As Inpatient Print Language: Vietnamese
[2024-10-17] MEDS: Albuterol Sulfate 2.5 MG, Albuterol/Iprat 2.5/0.5MG 3 ML 3 ML INHALE (00:22)
[2024-10-17 01:04] LABS: MANUAL DIFF FLAG NO
[2024-10-17 01:05] LABS: Basophils Percent Auto 0.3 % (0-2); Eosinophils Absolute Auto 0.4 X10*3/uL (0.0-0.4); Eosinophils Percent Auto 3.2 % (0-4); Hematocrit 39.8 % (37.0-47.0); Hemoglobin 13.6 g/dl (12.0-16.0); Imm Gran Abs Auto 0.04 X10*3/uL (0.00-0.03); Imm Gran Pct Auto 0.3 % (0.0-0.4); Lymphocytes Absolute Auto 3.4 X10*3/uL (1.2-4.9); Lymphocytes Percent Auto 26.5 % (20-40); Mean Corpuscular HGB Conc 34.2 g/dl (31.0-35.0); Mean Corpuscular Hemoglobin 31.6 pg (27.0-33.0); Mean Corpuscular Volume 92.3 fL (80.0-98.0); Mean Platelet Volume 10.2 fL (9.4-12.3); Monocytes Absolute Auto 0.9 X10*3/uL (0.1-1.2); Monocytes Percent Auto 6.9 % (2-11); Neutrophils Percent Auto 62.8 % (45-73); Platelet Count 188 X10*3/uL (160-400); Red Blood Count 4.31 X10*6/uL (4.20-5.50); Red Cell Distribution Width 13.4 % (11.0-16.0); White Blood Count 12.7 X10*3/uL (4.8-10.8)
[2024-10-17 01:18] LABS: Anion Gap 14 (12-20); Blood Urea Nitrogen 16 mg/dL (9-16); Calcium 8.7 mg/dL (8.4-10.2); Carbon Dioxide 23 mmol/L (22-29); Chloride 105 mmol/L (96-108); Creatinine Clr Calc Pharmacy 79.3; Estimated Glomerular Filt Rate > 60; Glucose Random 145 mg/dL (60-115); Potassium 3.4 mmol/L (3.3-5.1); Sodium 139 mmol/L (135-145)
[2024-10-17 01:26] LABS: B Type Natriuretic Peptide < 10 pg/mL (<100); Troponin-I High Sensitivity 6.7 ng/L (<3.5-17.0)
[2024-10-17 01:43] LABS: Influenza A PCR NEGATIVE (Negative); Influenza B PCR NEGATIVE (Negative); Resp Syncy Virus RNA Qual PCR NEGATIVE (Negative); SARS COV2 PCR INHOUSE NEGATIVE (Negative)
[2024-10-17] MEDS: Magnesium Sulfate/H2O 2 GM/50 ML PIGGYBACK IV (02:30)
--- NOTE | 2024-10-17 02:36 | MHC.EDTECH ---
This pct just assumed care of Patient ,vitals taken ,Call vance within Pt reach .
[2024-10-17] MEDS: Albuterol Sulfate (0.083%) 2.5 MG/3 ML VIAL.NEB 7.5 MG INHALE (02:43)
[2024-10-17 03:50] LABS: Appearance Urine Clear; Color Urine Yellow; Glucose Urine UA Negative (Negative); Leukocyte Esterase Urine Negative (Negative); Nitrite Urine Negative (Negative); PH 5.5 (5.0-9.0); Urine Blood Negative (Negative); Urine Ketones Negative (Negative); Urine Protein Negative (Neg-Trace)
[2024-10-17 03:52] LABS: Venous Blood Gas Refer to POC result
[2024-10-17 03:53] LABS: VBG Base Excess -0.1 mmol/L; VBG HCO3 24 mmol/L (22-26); VBG pCO2 37 mmHg; VBG pH 7.41 (7.32-7.43); VBG pO2 51 mmHg
[2024-10-17 03:57] LABS: D Dimer High Sensitivity 296 NG/ML
[2024-10-17] MEDS: iohexoL 350 MG/ML 100 ML INFUS..BTL 75 ML IV (06:08)
[2024-10-17 07:53] LABS: Estimated Average Glucose 114 mg/dL; Hemoglobin A1C 128.2609 umol/L; Hemoglobin A1c % 5.6 % (<6.0); Total Hemoglobin (HGBA1C) 3451.0341 umol/L
--- NOTE | 2024-10-17 08:08 | P.HPHOSP_ITS ---
History of Present Illness Date of Service: 10/17/24 Chief Complaint: SOB Pt is a 69-year-old female with a PMH significant for?mild intermittent asthma, HLD, hypothyroidism, nodular goiter, and psoriasis who presents to the ED with?SOB and difficulty breathing since late last night. Pt reports came down with URI symptoms began on : Experienced sore throat, nonproductive cough, myalgias, headache, and nasal congestion. Initially felt better until last night when pt woke up gasping for breath and simply ?could not breathe. Chest tightness/heaviness associated with breathing. Reports being diagnosed with asthma 38 years ago though has been mild and she has not used her inhaler in over 15 years. Has never been hospitalized or experienced symptoms like this before. Pt reports currently is breathing much better than upon arrival, but still occasionally wheezy and still with some SOB/MAGUIRE with walking to the bathroom. Pt with unlabored breathing and capable of speaking in full sentences, though noted to be desatting into the upper 80s during interview and exam. No longer experiencing URI symptoms: Sore throat, rhinorrhea, headache, and myalgias have resolved. In the ED pt was tachypneic up to 107, and hypoxic as low as 88% on RA. Labs were significant for leukocytosis of 12.7 and mildly elevated D-dimer of 296, otherwise grossly unremarkable and around baseline for pt. Stable H&H. No significant electrolyte abnormalities. Renal function baseline. Random glucose elevated at 145 but A1c WNL at 5.6. Troponin WNL at 6.7. BNP negative. UA negative. Tested negative for flu, COVID, RSV. VBG reassuring. CXR showed no acute cardiopulmonary process. CTA of chest negative for PE and without acute cardiopulmonary disease. EKG demonstrated normal sinus rhythm without evidence of significant ST elevations or depressions. Pt was treated in the ED with Duonebs, Solu-Medrol, and mag sulfate. Pt is admitted to the hospital for treatment and further evaluation of acute hypoxic respiratory failure in the setting of acute asthma exacerbation. Review of Systems 2 Review of Systems: Negative except for that which is stated in the HPI. [facility] Medical History (Updated 10/17/24 @ 09:06 by MARKO Garcia) Psoriasis Mild intermittent asthma Annual physical exam Normal colonoscopy Normal Pap smear Mammogram normal Hyperlipidemia Multinodular thyroid Vitamin D deficiency Hypothyroidism Family History Father No problems noted. Mother No problems noted. 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 Current occupational exposures/hazards: No Cognitive needs: No Hearing needs: No Vision needs: Yes Meds Allergies Allergy/AdvReac Type Severity Reaction Status Date / Time No Known Allergies Allergy Verified 10/17/24 00:01 [No Known Allergies*] Active Medications: Current Medications Albuterol/Ipratropium (Albuterol/Iprat 2.5/0.5mg 3 Ml Ampul.Neb) 3 ml INHALE Q4H [facility] Loratadine (Loratadine 10 Mg Tablet) 10 mg PO DAILY C[facility] Methylprednisolone Sodium Succinate (Methylprednisolone Sod Succ 40 Mg/Ml Vial) 40 mg IVPUSH BID CRAIG Home Medications ?Medication ?Instructions ?Recorded ?Confirmed ?Last Taken ?Type ergocalciferol (vitamin D2) 50 mcg 2,000 mcg PO SUMOTUWEFRSA@0910/17/24 10/17/24 10/16/24 History (2,000 unit) capsule ergocalciferol (vitamin D2) 50 mcg 4,000 mcg PO TH@0910/17/24 10/17/24 10/15/24 History (2,000 unit) capsule levothyroxine 75 mcg tablet 75 mcg PO DAILY@0600 10/17/24 10/17/24 10/16/24 History Physical Exam 2 Vital Signs and Narrative: Vital Signs: Last Vital Signs Temp 98.7 F 10/17/24 02:30 Pulse 107 H 10/17/24 03:46 Resp 16 10/17/24 02:45 BP 106/73 10/17/24 02:30 Pulse Ox 92 10/17/24 03:46 O2 Del Method Nasal Cannula 10/17/24 03:46 O2 Flow Rate 4 10/17/24 03:46 BMI result Body Mass Index 32.3 General: AOx3, no acute distress Resp: No respiratory distress. Speaking in full sentences. Mild expiratory wheezing bilaterally. CVS: S1, S2, RRR GI: +BS, NT, no distention Skin: Warm, dry Neuro: Cranial nerves II-XII grossly intact bilaterally. Motor grossly intact bilaterally Extremities: No edema Psych: Appropriate affect Results Labs 10/17/24 01:00 10/17/24 01:00 Labs: Laboratory Results - last 24 hr 10/17/24 10/17/24 10/17/24 01:00 03:43 03:49 MCV 92.3 MCH 31.6 MCHC 34.2 RDW 13.4 Plt Count 188 MPV 10.2 Immature Gran % (Auto) 0.3 Neut % (Auto) 62.8 Lymph % (Auto) 26.5 [place] % (Auto) 6.9 Eos % (Auto) 3.2 Baso % (Auto) 0.3 Lymph # (Auto) 3.4 [place] # (Auto) 0.9 Eos # (Auto) 0.4 Baso # (Auto) 0.0 Abs Immat Gran (auto) 0.04 H Absolute Neuts (auto) 8.0 Absolute Nucleated RBC 0.000 Nucleated RBC % (auto) 0.0 D-Dimer High Sensitivty 296 VBG pH 7.41 VBG pCO2 37 VBG pO2 51 VBG HCO3 24 VBG O2 Saturation 80.0 VBG Base Excess -0.1 Anion Gap 14 Estim Creat Clear Calc 79.3 Estimated GFR > 60 Random Glucose 145 H Estimat Average Glucose 114 Hemoglobin A1c % 5.6 Calcium 8.7 D B-Natriuretic Peptide < 10 Urine Color Yellow Urine Appearance Clear Urine pH 5.5 Ur Specific [place] 1.010 Urine Protein Negative Urine Glucose (UA) Negative Urine Ketones Negative Urine Blood Negative Urine Nitrite Negative Ur Leukocyte Esterase Negative Influenza Type A (PCR) NEGATIVE Influenza Type B (PCR) NEGATIVE RSV RNA Qual (PCR) NEGATIVE SARS-CoV-2 RNA (RT-PCR) NEGATIVE Assessment and Plan (1) Acute hypoxemic respiratory failure: Status: Acute (2) Asthma with exacerbation: Status: Acute Plan Pt is a 69-year-old female with a PMH significant for?mild intermittent asthma, HLD, hypothyroidism, nodular goiter, and psoriasis who presents to the ED with?SOB and difficulty breathing since late last night. Pt is admitted to the hospital for treatment and further evaluation of acute hypoxic respiratory failure in the setting of acute asthma exacerbation. Acute hypoxic respiratory failure in the setting of asthma exacerbation Pt with SOB, MAGUIRE, wheezing, desatting into upper 80s on RA since last night, not sufficiently alleviated by treatment in the ED Experienced URI symptoms 3 days ago, likely viral CXR and CTA negative for PE or consolidation, no indication for antibiotics at this time Will treat with DuoNebs, Solu-Medrol, loratadine, guaifenesin Check full respiratory panel Titrate supplemental O2 >92, wean as tolerated Monitor respiratory status Hypothyroidism Continue levothyroxine HLD Statin DNR/DNI, verified with pt who has had difficult family experiences with resuscitation Attending:?Dr. Jo DVT Prophylaxis: Lovenox Pt will require a hospitalization of at least two nights for treatment of?acute hypoxic respiratory failure in the setting of acute asthma exacerbation requiring supplemental oxygen, IV steroids, breathing treatments, and close monitoring of respiratory status. Quality Stroke Does the patient have a stroke diagnosis?: No VTE Prior VTE?: No VTE Risk Level:: Medical - moderate - high VTE Device Contraindication: Treatment Not Indicated VTE Drug Contraindication: N/A - Med Ordered
[2024-10-17] MEDS: Loratadine 10 MG TABLET PO (08:44)
[2024-10-17] MEDS: methylPREDNISolone Sod Succ 40 MG/ML VIAL IVPUSH ×2 (08:44→21:37)
--- NOTE | 2024-10-17 08:58 | PHA.MEDREC ---
Addendum entered by Fly Suarez RP 10/17/24 16:24: Reviewed by [facility] Original Note: Pharmacy Consult ? Medication Reconciliation Pharmacy has completed the medication reconciliation. Spoke to pt to confirm meds.
[2024-10-17] MEDS: Levothyroxine Sodium 75 MCG TABLET PO (10:38)
[2024-10-17] MEDS: Atorvastatin Calcium 10 MG TABLET PO (10:38)
[2024-10-17] MEDS: Enoxaparin Sodium 40 MG/0.4 ML SYRINGE SUBCUT (10:38)
[2024-10-17 11:14] LABS: Adenovirus PCR Not Detected (Not Detect.); Bordetella parapertussis PCR Not Detected (Not Detect.); Bordetella pertussis PCR Not Detected (Not Detect.); Chlamydia pneumoniae PCR Not Detected (Not Detect.); Coronavirus 229E PCR Not Detected (Not Detect.); Coronavirus HKU1 PCR Not Detected (Not Detect.); Coronavirus NL63 PCR Not Detected (Not Detect.); Coronavirus OC43 PCR Not Detected (Not Detect.); Human metapneumovirus PCR Not Detected (Not Detect.); Influenza A PCR Not Detected (Not Detect.); Influenza B PCR Not Detected (Not Detect.); Mycoplasma pneumoniae PCR Not Detected (Not Detect.); Parainfluenza 1 PCR Not Detected (Not Detect.); Parainfluenza 2 PCR Not Detected (Not Detect.); Parainfluenza 3 PCR Not Detected (Not Detect.); Parainfluenza 4 PCR Not Detected (Not Detect.); RSV PCR Not Detected (Not Detect.); Rhino/Enterovirus PCR Detected (Not Detect.)
[2024-10-17] MEDS: Albuterol/Iprat 2.5/0.5MG 3 ML AMPUL.NEB INHALE ×4 (11:15→23:46)
[2024-10-17 11:42] LABS: Influenza A H1 PCR Not Detected (Not Detect.); Influenza A H1-2009 PCR Not Detected (Not Detect.); Influenza A H3 PCR Not Detected (Not Detect.); SARS-CoV-2 PCR Not Detected (Not Detect.)
[2024-10-17] MEDS: 0.9 % Sodium Chloride Flush 3 ML SYRINGE IVFLUSH ×2 (16:15→23:54)
[2024-10-17] MEDS: Melatonin 3 MG TABLET 6 MG PO (22:29)
[2024-10-18] VITALS (11 sets, daily range): BP systolic 130–164; BP diastolic 65–83; PULSE 75–110; RESP 15–18; TEMP 36.2–36.7; O2SAT 92–94; BMI 33.6
[2024-10-18] MEDS: Levothyroxine Sodium 75 MCG TABLET PO (05:25)
--- NOTE | 2024-10-18 07:08 | PC.NURSE ---
Noted with Full code order, but pt prefers to be DNR in the H&P note, Dr. Phelps was notified,Dr. Phelps said to go with the latest order as full code.
[2024-10-18 08:07] LABS: Hematocrit 38.9 % (37.0-47.0); Mean Corpuscular HGB Conc 33.4 g/dl (31.0-35.0); Mean Corpuscular Hemoglobin 31.4 pg (27.0-33.0); Mean Platelet Volume 11.8 fL (9.4-12.3); Platelet Count 235 X10*3/uL (160-400); Red Blood Count 4.14 X10*6/uL (4.20-5.50); Red Cell Distribution Width 13.7 % (11.0-16.0); White Blood Count 17.1 X10*3/uL (4.8-10.8)
[2024-10-18] MEDS: Albuterol/Iprat 2.5/0.5MG 3 ML AMPUL.NEB INHALE ×5 (08:07→23:19)
[2024-10-18] MEDS: Atorvastatin Calcium 10 MG TABLET PO (09:16)
[2024-10-18] MEDS: Loratadine 10 MG TABLET PO (09:16)
[2024-10-18] MEDS: guaiFENesin DM 200/20/10 ML 10 ML SYRUP PO (09:16)
[2024-10-18] MEDS: 0.9 % Sodium Chloride Flush 3 ML SYRINGE IVFLUSH ×2 (09:16→20:23)
[2024-10-18] MEDS: methylPREDNISolone Sod Succ 40 MG/ML VIAL IVPUSH ×2 (09:16→20:23)
[2024-10-18] MEDS: Enoxaparin Sodium 40 MG/0.4 ML SYRINGE SUBCUT (09:20)
--- NOTE | 2024-10-18 10:11 | HO.PM.IMPN ---
Subjective Subjective Date of Service: 10/18/24 Interval History: Seen and evaluated in her room where she is resting comfortably in bed No acute overnight events Overall feels better with less difficulty breathing SOB improved, though has not tried much ambulation Still requiring 3L O2 No lightheadedness or dizziness Denies chest pain/pressure, palpitations Respiratory panel came back positive for endorses/rhino virus Review of Systems Review of Systems: Yes all other systems are reviewed and are negative Physical Exam Vital Signs: Vital Signs: Last Vital Signs Temp 97.3 F 10/18/24 07:41 Pulse 76 10/18/24 08:08 Resp 18 10/18/24 08:08 BP 153/80 H 10/18/24 07:41 Pulse Ox 93 10/18/24 07:41 O2 Del Method Nasal Cannula 10/18/24 07:41 O2 Flow Rate 3 10/18/24 07:41 BMI result Body Mass Index 33.6 General: AOx3, no acute distress Resp: Speaking in full sentences. NC on. Mild end-expiratory wheezing bilaterally CVS: S1, S2, RRR GI: +BS, NT, no distention Skin: Warm, dry Neuro: Cranial nerves II-XII grossly intact bilaterally. Motor grossly intact bilaterally Extremities: No edema Psych: Appropriate affect Objective Data Active Medications Acetaminophen (Acetaminophen 325 Mg Tablet) 650 mg PO Q6H PRN PRN Reason: Pain, Mild 1-3,fever,headache Albuterol/Ipratropium (Albuterol/Iprat 2.5/0.5mg 3 Ml Ampul.Neb) 3 ml INHALE Q4H [facility] Last Admin: 10/18/24 08:07 Dose: 3 ml Documented By: KASI Atorvastatin Calcium (Atorvastatin Calcium 10 Mg Tablet) 10 mg PO DAILY [facility] Last Admin: 10/18/24 09:16 Dose: 10 mg Documented By: VINCENT Calcium Carbonate (Calcium Carbonate 750 Mg Tab.Chew) 750 mg PO Q4H PRN PRN Reason: Heartburn Enoxaparin Sodium (Enoxaparin Sodium 40 Mg/0.4 Ml Syringe) 40 mg SUBCUT Q24H [facility] Last Admin: 10/18/24 09:20 Dose: 40 mg Documented By: VINCENT Guaifenesin/Dextromethorphan (Guaifenesin Dm 200/20/10 Ml 10 Ml Syrup) 10 ml PO Q4H PRN PRN Reason: Cough Last Admin: 10/18/24 09:16 Dose: 10 ml Documented By: VINCENT Levothyroxine Sodium (Levothyroxine Sodium 75 Mcg Tablet) 75 mcg PO DAILY@0600 [facility] Last Admin: 10/18/24 05:25 Dose: 75 mcg Documented By: CASTILJosy Loratadine (Loratadine 10 Mg Tablet) 10 mg PO DAILY [facility] Last Admin: 10/18/24 09:16 Dose: 10 mg Documented By: VINCENT Magnesium Hydroxide (Milk Of Magnesia 30 Ml Oral.Susp) 30 ml PO DAILY PRN PRN Reason: Constipation Melatonin (Melatonin 3 Mg Tablet) 6 mg PO BEDTIME PRN PRN Reason: Insomnia Last Admin: 10/17/24 22:29 Dose: 6 mg Documented By: CHANA Methylprednisolone Sodium Succinate (Methylprednisolone Sod Succ 40 Mg/Ml Vial) 40 mg IVPUSH BID [facility] Last Admin: 10/18/24 09:16 Dose: 40 mg Documented By: VINCENT Sodium Chloride (0.9 % Sodium Chloride Flush 3 Ml Syringe) 3 ml IVFLUSH QSHIFT [facility] Last Admin: 10/18/24 09:16 Dose: 3 ml Documented By: VINCENT Labs 10/18/24 07:24 10/17/24 01:00 Labs: Laboratory Results - last 24 hr 10/17/24 10/18/24 09:14 07:24 MCV 94.0 MCH 31.4 MCHC 33.4 RDW 13.7 Plt Count 235 MPV 11.8 Absolute Nucleated RBC 0.000 Nucleated RBC % (auto) 0.0 Respiratory Panel [place] See Note Adenovirus (Rapid PCR) Not Detected B.pert (TEM-PCR) Not Detected B.parapertussis DNA PCR Not Detected C. pneumoniae DNA (PCR) Not Detected Coronavirus OC43 (PCR) Not Detected Coronavirus HKU1 (PCR) Not Detected Coronavirus 229E (PCR) Not Detected Coronavirus NL63 (PCR) Not Detected Human Metapneumovir PCR Not Detected Influenza A (RT-PCR) Not Detected Influenza A (H1) PCR Not Detected Influ A (H1/09) PCR Not Detected Influenza A (H3) PCR Not Detected Influenza B (RT-PCR) Not Detected M. pneumoniae (PCR) Not Detected Parainfluenza 1 (PCR) Not Detected Parainfluenza 2 (PCR) Not Detected Parainfluenza 3 (PCR) Not Detected Parainfluenza 4 (PCR) Not Detected RSV (PCR) Not Detected Entero/Rhino (PCR) Detected A SARS-CoV-2 RNA (RT-PCR) Not Detected Assessment and Plan (1) Acute hypoxemic respiratory failure: Status: Acute (2) Asthma with exacerbation: Status: Acute Assessment and Plan: Leukocytosis Secondary to steroid use No indication of underlying infection requiring abx Plan Pt is a 69-year-old female with a PMH significant for?mild intermittent asthma, HLD, hypothyroidism, nodular goiter, and psoriasis who presents to the ED with?SOB and difficulty breathing since late last night. Pt is admitted to the hospital for treatment and further evaluation of acute hypoxic respiratory failure in the setting of acute asthma exacerbation. Acute hypoxic respiratory failure in the setting of acute asthma exacerbation Pt with SOB, MAGUIRE, wheezing, desatting into upper 80s on RA since Saturday night, not sufficiently alleviated by treatment in the ED Experienced URI symptoms 3 days ago, tested positive for entero/rhino virus CXR and CTA negative for PE or consolidation, no indication for antibiotics at this time Continue DuoNebs, Solu-Medrol, loratadine, guaifenesin Overall better but still requiring 3L NC Titrate supplemental O2 >92, wean as tolerated Encourage OOB, ambulation Monitor respiratory status Hypothyroidism Continue levothyroxine HLD Statin Full code DVT Prophylaxis: Lovenox Pt will require continue hospitalization she is still requiring 3 L O2 to maintain O2 saturation of 92%. Pt also require IV steroids and nebulizer treatments. Quality Stroke Does the patient have a stroke diagnosis?: No VTE Prior VTE?: No VTE Risk Level:: Medical - moderate - high VTE Device Contraindication: Treatment Not Indicated VTE Drug Contraindication: N/A - Med Ordered
--- NOTE | 2024-10-18 16:16 | MHC.CM.PN ---
PT REPORTS SHE LIVES ALONE AND IS INDEPENDENT WITH CARE SHE HAS NO HOME SERVICES AND NO DME COPY OF HCP REQUESTED, SHE SAYS HER DAUGHTER, SAMANTHA, IS HER AGENT PCP: DEAN ROBLERO IMM DELIVERED DCP: HOME NO SERVICES VIA PRIVATE TRANSPORT
[2024-10-19] VITALS (10 sets, daily range): BP systolic 118–167; BP diastolic 67–79; PULSE 81–106; RESP 16–18; TEMP 36.2–36.8; O2SAT 90–96
[2024-10-19] MEDS: Calcium Carbonate 750 MG TAB.CHEW PO (05:24)
[2024-10-19] MEDS: Levothyroxine Sodium 75 MCG TABLET PO (05:24)
[2024-10-19] MEDS: Albuterol/Iprat 2.5/0.5MG 3 ML AMPUL.NEB INHALE ×4 (07:55→19:41)
[2024-10-19] MEDS: Loratadine 10 MG TABLET PO (08:33)
[2024-10-19] MEDS: Enoxaparin Sodium 40 MG/0.4 ML SYRINGE SUBCUT (08:33)
[2024-10-19] MEDS: Atorvastatin Calcium 10 MG TABLET PO (08:33)
[2024-10-19] MEDS: 0.9 % Sodium Chloride Flush 3 ML SYRINGE IVFLUSH ×2 (08:34→23:57)
[2024-10-19] MEDS: methylPREDNISolone Sod Succ 40 MG/ML VIAL IVPUSH (08:34)
--- NOTE | 2024-10-19 14:38 | P.PNIM_ITS ---
Subjective Subjective Date of Service: 10/19/24 Interval History: acute hypoxemic respiratory failure Review of Systems says some sob with excersion , still hypoxic cough somewhat improving Review of Systems: Yes all other systems are reviewed and are negative Physical Exam 2 Vital Signs: Vital Signs: Last Vital Signs Temp 97.8 F 10/19/24 12:00 Pulse 106 H 10/19/24 12:00 Resp 18 10/19/24 12:00 BP 149/73 H 10/19/24 12:00 Pulse Ox 93 10/19/24 12:00 O2 Del Method Nasal Cannula 10/19/24 12:00 O2 Flow Rate 1 10/19/24 12:00 BMI result Body Mass Index 33.6 General: AOx3, sob with excersion Resp: air netry somewhat improving,b/lend-expiratory wheezing bilaterally CVS: S1, S2, rrr. GI: +BS, NT, no distention Skin: Warm, dry Neuro: Cranial nerves II-XII grossly intact bilaterally. Motor grossly intact bilaterally Extremities: No edema Objective Data Active Medications Acetaminophen (Acetaminophen 325 Mg Tablet) 650 mg PO Q6H PRN PRN Reason: Pain, Mild 1-3,fever,headache Albuterol/Ipratropium (Albuterol/Iprat 2.5/0.5mg 3 Ml Ampul.Neb) 3 ml INHALE Q4H [facility] Last Admin: 10/19/24 11:36 Dose: 3 ml Documented By: KASI Atorvastatin Calcium (Atorvastatin Calcium 10 Mg Tablet) 10 mg PO DAILY [facility] Last Admin: 10/19/24 08:33 Dose: 10 mg Documented By: JACKIE Calcium Carbonate (Calcium Carbonate 750 Mg Tab.Chew) 750 mg PO Q4H PRN PRN Reason: Heartburn Last Admin: 10/19/24 05:24 Dose: 750 mg Documented By: NEW Enoxaparin Sodium (Enoxaparin Sodium 40 Mg/0.4 Ml Syringe) 40 mg SUBCUT Q24H [facility] Last Admin: 10/19/24 08:33 Dose: 40 mg Documented By: JACKIE Guaifenesin/Dextromethorphan (Guaifenesin Dm 200/20/10 Ml 10 Ml Syrup) 10 ml PO Q4H PRN PRN Reason: Cough Last Admin: 10/18/24 09:16 Dose: 10 ml Documented By: VINCENT Levothyroxine Sodium (Levothyroxine Sodium 75 Mcg Tablet) 75 mcg PO DAILY@0600 [facility] Last Admin: 10/19/24 05:24 Dose: 75 mcg Documented By: NEW Loratadine (Loratadine 10 Mg Tablet) 10 mg PO DAILY [facility] Last Admin: 10/19/24 08:33 Dose: 10 mg Documented By: JACKIE Magnesium Hydroxide (Milk Of Magnesia 30 Ml Oral.Susp) 30 ml PO DAILY PRN PRN Reason: Constipation Melatonin (Melatonin 3 Mg Tablet) 6 mg PO BEDTIME PRN PRN Reason: Insomnia Last Admin: 10/17/24 22:29 Dose: 6 mg Documented By: CHANA Methylprednisolone Sodium Succinate (Methylprednisolone Sod Succ 40 Mg/Ml Vial) 40 mg IVPUSH DAILY [facility] Last Admin: 10/19/24 08:34 Dose: 40 mg Documented By: JACKIE Sodium Chloride (0.9 % Sodium Chloride Flush 3 Ml Syringe) 3 ml IVFLUSH QSHIFT [facility] Last Admin: 10/19/24 08:34 Dose: 3 ml Documented By: JACKIE Labs 10/18/24 07:24 10/17/24 01:00 Assessment and Plan (1) Acute hypoxemic respiratory failure: Status: Acute (2) Asthma with exacerbation: Status: Acute Assessment and Plan: 69-year-old female with a PMH significant for?mild intermittent asthma, HLD, hypothyroidism, nodular goiter, and psoriasis who presents to the ED with?SOB and difficulty breathing since late last night. Pt is admitted to the hospital for treatment and further evaluation of acute hypoxic respiratory failure in the setting of acute asthma exacerbation. Acute hypoxic respiratory failure in the setting of acute asthma exacerbation sob somewhat improving ,still hypoxic Experienced URI symptoms 3 days ago, tested positive for entero/rhino virus CXR and CTA negative for PE or consolidation, no indication for antibiotics at this time Continue DuoNebs, Solu-Medrol, loratadine, guaifenesin,taper oxygen Titrate supplemental O2 >92, wean as tolerated Encourage OOB, ambulation Monitor respiratory status Hypothyroidism Continue levothyroxine HLD Statin Full code DVT Prophylaxis: Lovenox continue hospitalization AHRF/URI- is still requiring O2 to maintain O2 . Pt also require IV steroids and nebulizer treatments. Quality Stroke Does the patient have a stroke diagnosis?: No VTE Prior VTE?: No VTE Risk Level:: Medical - moderate - high VTE Device Contraindication: Treatment Not Indicated VTE Drug Contraindication: N/A - Med Ordered
[2024-10-20] VITALS: BP 167/79; PULSE 96; RESP 18; TEMP 36.1; O2SAT 93
[2024-10-20 03:37] VITALS: BP 164/85; PULSE 87; RESP 17; TEMP 36; O2SAT 94
[2024-10-20] MEDS: Levothyroxine Sodium 75 MCG TABLET PO (05:46)
[2024-10-20 07:31] VITALS: PULSE 87; RESP 17; O2SAT 94
[2024-10-20] MEDS: Albuterol/Iprat 2.5/0.5MG 3 ML AMPUL.NEB INHALE ×2 (07:31→11:44)
[2024-10-20] MEDS: Atorvastatin Calcium 10 MG TABLET PO (07:35)
[2024-10-20] MEDS: 0.9 % Sodium Chloride Flush 3 ML SYRINGE IVFLUSH (07:35)
[2024-10-20] MEDS: Enoxaparin Sodium 40 MG/0.4 ML SYRINGE SUBCUT (07:35)
[2024-10-20] MEDS: methylPREDNISolone Sod Succ 40 MG/ML VIAL IVPUSH (07:35)
[2024-10-20] MEDS: Loratadine 10 MG TABLET PO (07:35)
[2024-10-20 08:00] VITALS: BP 157/77; PULSE 74; RESP 18; TEMP 36.7; O2SAT 94
--- NOTE | 2024-10-20 10:40 | MHC.CM.PN ---
IMM 10/18/24 Per MD patient is ready to discharge today. She will discharge to home self care. She has arranged for her son to provide transportation home.
--- NOTE | 2024-10-20 11:19 | PM.DS ---
DS: Providers Provider Date of Service: 10/20/24 Date of admission: 10/17/24 07:27 Date of discharge: 10/20/24 Primary care physician: Sharon Smallwood MD DS: Diagnosis Discharge Diagnosis (1) Acute hypoxemic respiratory failure: Status: Acute (2) Asthma with exacerbation: Status: Acute DS: Summary Hospital Course Hospital Course: History and physical as per admitting provider. Pt is a 69-year-old female with a PMH significant for?mild intermittent asthma, HLD, hypothyroidism, nodular goiter, and psoriasis who presents to the ED with?SOB and difficulty breathing since late last night. Pt reports came down with URI symptoms began on : Experienced sore throat, nonproductive cough, myalgias, headache, and nasal congestion. Initially felt better until last night when pt woke up gasping for breath and simply ?could not breathe. Chest tightness/heaviness associated with breathing. Reports being diagnosed with asthma 38 years ago though has been mild and she has not used her inhaler in over 15 years. Has never been hospitalized or experienced symptoms like this before. Pt reports currently is breathing much better than upon arrival, but still occasionally wheezy and still with some SOB/MAGUIRE with walking to the bathroom. Pt with unlabored breathing and capable of speaking in full sentences, though noted to be desatting into the upper 80s during interview and exam. No longer experiencing URI symptoms: Sore throat, rhinorrhea, headache, and myalgias have resolved. In the ED pt was tachypneic up to 107, and hypoxic as low as 88% on RA. Labs were significant for leukocytosis of 12.7 and mildly elevated D-dimer of 296, otherwise grossly unremarkable and around baseline for pt. Stable H&H. No significant electrolyte abnormalities. Renal function baseline. Random glucose elevated at 145 but A1c WNL at 5.6. Troponin WNL at 6.7. BNP negative. UA negative. Tested negative for flu, COVID, RSV. VBG reassuring. CXR showed no acute cardiopulmonary process. CTA of chest negative for PE and without acute cardiopulmonary disease. EKG demonstrated normal sinus rhythm without evidence of significant ST elevations or depressions. Pt was treated in the ED with Duonebs, Solu-Medrol, and mag sulfate. Pt is admitted to the hospital for treatment and further evaluation of acute hypoxic respiratory failure in the setting of acute asthma exacerbation. 69-year-old woman treated for acute hypoxic respiratory failure secondary to acute asthma exacerbation. Experienced URI symptoms 3 days prior to admission, tested positive for entero/rhino virus. Chest x-ray and chest CTA negative for PE or consolidation. No indication for treatment with antibiotics. Treated with scheduled DuoNebs, IV Solu-Medrol, loratadine, NT Tussin. Weaned off oxygen fairly quickly. Ambulating without any dyspnea or shortness to breath. We will be discharged home with short course of prednisone and albuterol inhaler. Hypothyroidism. Continue levothyroxine Hyperlipidemia. Continue statin Time Attestation Discharge Coordination Time (in mins): 40 Quality: Safe Use of Opioids Does Pt have an Active Cancer Diagnosis on the Problem List?: No Quality: Stroke Does the patient have a stroke diagnosis?: No Physical Exam Vital Signs: Vital Signs: Last Vital Signs Temp 98.0 F 10/20/24 08:00 Pulse 74 10/20/24 08:00 Resp 18 10/20/24 08:00 BP 157/77 H 10/20/24 08:00 Pulse Ox 94 10/20/24 08:00 O2 Del Method Room Air 10/20/24 08:00 O2 Flow Rate 1 10/19/24 16:00 BMI result Body Mass Index 33.6 Appearing in no acute distress head is normocephalic atraumatic eyes pupils are PERRLA sclera is anicteric mouth throat mucous membranes are intact and moist neck is supple no lymphadenopathy, no JVD noted lung sounds are clear to auscultation heart regular rate rhythm, clear S1, S2 positive bowel sounds, abdomen is soft, nontender neuro patient is alert x3, no focal deficits Discharge Plan Discharge Anticipated Discharge Date/Time: 10/20/24 11:13 Patient Disposition: Home, Self-Care Discharge Diagnosis: Asthma exacerbation Acute hypoxic respiratory failure Referrals: Sharon Smallwood MD [Primary Care Provider] - 1 Week Discharge Medications: New prednisone 10 mg tablet 40 mg PO DIRECTED 5 Days Qty: 20 0RF Rx Instructions: Take 40 mg for 5 days albuterol sulfate 90 mcg/actuation HFA aerosol inhaler 1 inh inhalation QID PRN (Reason: shortness of breath or wheezing) Qty: 8.5 0RF Continued atorvastatin 10 mg tablet 10 mg PO DAILY Qty: 90 3RF ergocalciferol (vitamin D2) 50 mcg (2,000 unit) capsule 4,000 mcg PO TH@0900 levothyroxine 75 mcg tablet 75 mcg PO DAILY@0600 ergocalciferol (vitamin D2) 50 mcg (2,000 unit) capsule 2,000 mcg PO SUMOTUWEFRSA@0900 Discharge Orders: Discharge Order (Routine); Ordered 10/20/24 Ordered By: Lyssa Swanson Diet: Advance to usual diet Activity on Discharge: As tolerated Stand Alone Forms: Patient Portal Discharge page Print Language: Chinese Care Plan Goals: Complete prednisone taper Use albuterol inhaler as needed May use loratadine as needed for allergy symptoms Health Concerns: Asthma exacerbation Acute hypoxic respiratory failure Plan of Treatment: Follow-up with primary care provider as needed Take all medications as prescribed Assessment: See discharge summary
[2024-10-20 11:45] VITALS: PULSE 74; RESP 18; O2SAT 95
[2024-10-20 12:00] VITALS: BP 141/67; PULSE 93; RESP 16; TEMP 36.7; O2SAT 94
== END 2024-10-20 12:33 | disposition home or self-care (01) | DRG 202 ==
LOC: HO.ED 10-17 07:13 → HO.EDOVER 10-17 08:04 → HO.S3 10-17 22:59
PROVIDERS: Student in an Organized Health Care Education/Training Program; Admitting Provider Internal Medicine; Emergency Provider Internal Medicine; PCP Internal Medicine; Visit Provider Nurse Practitioner Acute Care
DX: J45.21 Mild intermittent asthma with (acute) exacerbation (principal); J96.01 Acute respiratory failure with hypoxia; E78.5 Hyperlipidemia, unspecified; B97.89 Other viral agents as the cause of diseases classified elsewhere; B97.10 Unspecified enterovirus as the cause of diseases classified elsewhere; Z66 Do not resuscitate; E03.9 Hypothyroidism, unspecified; Z20.822 Contact with and (suspected) exposure to COVID-19; Z79.890 Hormone replacement therapy; Z79.899 Other long term (current) drug therapy
CPT/HCPCS: 0241U; 36415; 71045; 71275; 80048; 81003; 82803; 83036; 83880; 84484; 85025; 85027; 85379; 87633; 93005; 94640; 99285; J1650; J2919; J3475; Q9967

== ENCOUNTER → 2024-10-17 00:04 | Outpatient (BNV) | payer MEDICARE, SELFPAY | PROVIDERS: Admitting Provider Internal Medicine; Emergency Provider Internal Medicine; PCP Internal Medicine; Visit Provider Internal Medicine Cardiovascular Disease | DX: R94.31 Abnormal electrocardiogram [ECG] [EKG] (principal); R06.02 Shortness of breath | CPT/HCPCS: 93010 ==

== ENCOUNTER → 2024-10-17 00:04 | Outpatient (BNV) | payer MEDICARE, SELFPAY | PROVIDERS: Emergency Provider Internal Medicine; PCP Internal Medicine; Visit Provider Radiology Neuroradiology | DX: R06.00 Dyspnea, unspecified (principal); R06.02 Shortness of breath | CPT/HCPCS: 71045; 71275 ==

== ENCOUNTER → 2024-10-17 07:27 | Outpatient (BNV) | payer MEDICARE, SELFPAY | PROVIDERS: Admitting Provider Internal Medicine; Emergency Provider Internal Medicine; PCP Internal Medicine; Visit Provider Student in an Organized Health Care Education/Training Program | DX: J96.01 Acute respiratory failure with hypoxia (principal); J45.901 Unspecified asthma with (acute) exacerbation | CPT/HCPCS: 99223; 99231; 99233; 99239 ==

== ENCOUNTER 2024-10-27 12:05 | Outpatient (AMB) | payer MEDICARE, SELFPAY ==
--- NOTE | 2024-10-27 12:09 | A.OFFPC_ITS ---
Vital Signs 10/27/24 12:10 Height 5 ft 6 in Weight 202 lb BMI 32.6 BP 120/74 Blood Pressure Location Rt brachial Position Sitting Respiration 18 Pulse 87 Pulse Source Pulse Oximeter Temp 98.1 F Temp Source Oral Pulse Oximetry (%) 97 Oxygen Delivery Method Room Air Intake Visit Reasons: TCM Intake Note: Pt is here today for TCM. Allergies No Known Allergies [No Known Allergies*] Allergy (Verified 10/27/24 12:14) Tobacco use date assessed: 10/27/24 Fall risk assessment: No Falls in past year Last assessed Fall Risk: 10/27/24 Dental Screening Dental Screen Date: 10/27/24 Did you have a dental visit in the last 12 months?: Yes Did you have a dental problem in the last 6 months where you did not have access to dental care?: No Was dental information given to patient?: Patient has dentist HPI TCM HPI Details Patient presents for follow-up of hospitalization for respiratory failure with hypoxia due to viral infection. She was treated with supplemental O2 Solu-Medrol and supportive care and recovered. Patient reports occasionally dry cough but denies dyspnea on exertion pleurisy fever chills PND or orthopnea TCM TCM Information Date of Discharge 10/20/24 Discharged From [facility] Interactive Contact Date (Reference documentation from this date) 10/21/24 [facility] Medical History (Updated 10/17/24 @ 09:06 by MARKO Garcia) Psoriasis Mild intermittent asthma Annual physical exam Normal colonoscopy Normal Pap smear Mammogram normal Hyperlipidemia Multinodular thyroid Vitamin D deficiency Hypothyroidism Surgical History History of skin surgery History of total abdominal hysterectomy and bilateral salpingo-oophorectomy Family History Father No problems noted. Mother No problems noted. 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 1. Little interest or pleasure in doing things: not at all 2. Feeling down, depressed, or hopeless: not at all 3. Trouble falling or staying asleep, or sleeping too much: not at all 4. Feeling tired or having little energy: not at all 5. Poor appetite or overeating: not at all 6. Feeling bad about yourself - or that you are a failure or have let yourself or your family down: not at all 7. Trouble concentrating on things, such as reading the newspaper or watching television: not at all 8. Moving or speaking so slowly that other people could have noticed. Or the opposite - being so fidgety or restless that you have been moving around a lot more than usual: not at all 9. Thoughts that you would be better off or of hurting yourself in some way: not at all Total score: 0 Depression Screening Interpretation: Negative Depression Screening Done: Yes 43643 - PHQ-9 Billing: Yes Source: Developed by Drs. Ryan Roberson, Bertha Correa, Ugo García and colleagues, with an educational aileen from [employer]. Thrive Questionnaire Date Thrive assessed: 10/27/24 I am a: Patient What is your living situation today?: I have a steady place to live Within the past 12 months, did the food you bought not last and you didn't have the money to get more?: Never true Within the past 12 months, did you worry whether your food would run out before you got money to buy more?: Never true Do you have trouble paying for medicines?: No Do you have trouble getting transportation to medical appointments?: No Do you have trouble paying your heating and electricity bill?: No Do you have trouble taking care of your child, family member or friend?: No Do you have trouble with day-to-day activities such as bathing, preparing meals, shopping, managing finances, etc.?: No Are you currently unemployed and looking for a job?: No Are you interested in more education?: No Please select the resources that you would like help with: None Currently or been in a relationship where the following occur: No concerns reported THRIVE Score: 0 AUDIT C Alcohol Use Questionnaire (AUDIT-C) 1. How often do you have a drink containing alcohol?: Monthly or less 2. How many drinks containing alcohol do you have on a typical day when you are drinking?: 1 or 2 3. How often do you have six or more drinks on one occasion?: Never Total Score: 1 MATT-7 AMB Questionnaire MATT-7 Date MATT - 7 assessed: 10/27/24 Feeling nervous, anxious, or on edge: 0 = Not at all Not being able to stop or control worryin = Not at all Worrying too much about different things: 0 = Not at all Trouble relaxin = Not at all Being so restless that it is hard to sit still: 0 = Not at all Becoming easily annoyed or irritable: 0 = Not at all Feeling afraid as if something awful might happen: 0 = Not at all Total MATT-7 score (0-4 normal; 5-9 mild; 10-14 moderate; 15-21 severe): 0 Source: Developed by Drs. Ryan Roberson, Bertha Correa, Ugo García and colleagues, with an educational aileen from [employer]. MATT-7 Assessment Billing MATT-7 Assessment Tool: MATT-7 Assessment 14267 Review of Systems Const All systems reviewed & are unremarkable except as noted in HPI and below Eyes Reports no additional complaints ENT Reports no additional complaints Card Reports no additional complaints Resp Reports no additional complaints GI Reports no additional complaints Reports no additional complaints Physical exam (Primary Care) Vital Signs: Last Vital Signs Temp 98.1 F 10/27/24 12:10 Pulse 87 10/27/24 12:10 Resp 18 10/27/24 12:10 BP 120/74 10/27/24 12:10 Pulse Ox 97 10/27/24 12:10 Oxygen Delivery Method Room Air 10/27/24 12:10 BMI result Body Mass Index 32.6 Tobacco/Smoking Status: Tobacco use Status Tobacco use date assessed 10/27/24 10/27/24 12:18 Patient Tobacco Use Status Never used Tobacco 10/27/24 12:18 e-Cigarette/Vaping Use Never Used 10/27/24 12:10 PHQ-9: PHQ-9 Score PHQ-9: Total score 0 10/27/24 12:11 Depression Screening Interpretation: Negative Thrive Assessment: Date of Thrive Assessment Date Thrive assessed 10/27/24 10/27/24 12:11 Currently or been in a relationship where the following occur: No concerns reported Const General: no acute distress HENMT Head: Yes normal to inspection Face and sinus: Yes normal facial exam Mouth: Normal oral and palatal mucosa present Throat: Yes posterior oropharynx normal Eyes General: appearance normal, both eyes and all related structures Neck Neck: Yes supple Resp Effort & Inspection: normal respiratory effort Auscultation: clear to auscultation bilaterally Cardio Rhythm: regular rhythm Heart sounds: S1 normal heart sound present and S2 normal heart sound present GI Inspection: Yes normal to inspection Coding Level of Care Code TCM Mod MDM <= 7 Days Diagnoses Acute hypoxemic respiratory failure J96.01 Hyperlipidemia E78.5 Additional Codes MATT-7 Assessment Billing - MATT-7 Assessment Tool: MATT-7 Assessment 03453 ([id number]) PHQ-9 - 25831 - PHQ-9 Billing: Yes ([id number]) Assessment & Plan Assessment & Plan (1) Acute hypoxemic respiratory failure: Code(s): J96.01 - Acute respiratory failure with hypoxia Category: Medical Plan: I patient recovered, she was advised to continue Claritin for another week for upper airways symptoms (2) Hyperlipidemia: Code(s): E78.5 - Hyperlipidemia, unspecified Category: Medical Plan: Continue statin
[2024-10-27 12:10] VITALS: BP 120/74; PULSE 87; RESP 18; TEMP 36.7; O2SAT 97; BMI 32.6
== END 2024-10-27 13:23 | disposition home or self-care (01) ==
LOC: HO.HMCC 12:05
PROVIDERS: PCP Internal Medicine; Visit Provider Internal Medicine
DX: J96.01 Acute respiratory failure with hypoxia (principal); E78.5 Hyperlipidemia, unspecified

== ENCOUNTER → 2024-10-27 12:05 | Outpatient (BNVA) | payer MEDICARE, SELFPAY | PROVIDERS: PCP Internal Medicine; Visit Provider Internal Medicine | DX: J96.01 Acute respiratory failure with hypoxia (principal); E78.5 Hyperlipidemia, unspecified | CPT/HCPCS: 96127; 99495 ==

== ENCOUNTER 2024-12-29 07:28 | Outpatient (REF) | payer MEDICARE, SELFPAY ==
--- OUTSIDE RECORDS SUMMARY | 2024-12-29 07:30 | XMS_ITS | Patient Health Record ---
Author Organization [facility] Address [address] [place] [address] Care Team Providers Care Ski Instructor Name Role Phone Sharon Smallwood MD Primary Care Provider Unavaila Ryan Moe Unavailable [phone] Reason For Referral No Information Medications Medication SIG (Take, Route, Frequency, Duration) Notes Start Date End Date Status Advair HFA 230-21 MCG/ACT 2 puffs Inhala tion Twice a day Active Atorvastatin Calcium 10 MG 1 tablet Oral ly Once a day for 30 day(s) Active Levothyroxine Sodium 50 MCG 1 tablet on an empty stomach in the morning Orally Once a day for 30 day(s) Active Vitamin D 1000 UNIT 1 tablet Orally Once a day for 30 day(s) Active Albuterol Sulfate HFA 108 (90 Base) MCG/ACT 2 puffs as needed Inhalation every 6 hrs/prn Active Immunizations Vaccine Route Administration Date Status Comme nts Influenza Unknown 04/18/2018 Administered Social History Tobacco Use: Social History Observation Description Date Details (start date - stop date) Never Smoker NA - NA Tobacco Use/Smoking Question Answer Notes Patient is a nonsmoker Alcohol Screen Question Answer Notes Did you have a drink contain ing alcohol in the past year? Yes How often did you have a dri nk containing alcohol in the past year? Monthly or less (1 point) How many drinks did you have on a typical day when you were drinking in the past year? 1 or 2 drinks (0 point) How often did you have 6 or more drinks on one occasion in the past year? Never (0 point) Points 1 Interpretation Negative Section Notes: Nonsmoker; no sig alcohol Problems Problem Type SNOMED Code ICD Code Onset Dates Problem Status W/U Status Risk Notes Problem 550339121 Encounter for screening for malignant neoplasm of colon (Z12.11) Active confirmed Problem [id number] Preprocedural examination (Z01.818) Active confirmed Problem 49314023 Hypertension, unspecified type (I10) Active confirmed Plan Of Treatment Future Test Test Name Order Date COLONOSCOPY 02/04/2019 Insurance Providers Payer Name Payer Address Payer Phone Subscriber Number Group Number Insured Name Patient Relationship to Insured Coverage Start Date Coverage End Date [facility] [address] [place] [phone] [id number] RUSLAN MANN Self - patient is the insured Medical (General) History Medical History History ICD Code Denies [place],DM,CVA,renal disease Asthma Neg. screening colonoscopy in 03/2008 Thyroid nodules--scheduled for a biopsy on 04/02/19 Hyperlipidemia Hypothyroidism Surgical History Surgery Date(Month/Year) Hysterectomy
[2024-12-29 10:14] LABS: MANUAL DIFF FLAG NO
[2024-12-29 10:17] LABS: Hematocrit 40.1 % (37.0-47.0); Hemoglobin 13.2 g/dl (12.0-16.0); Imm Gran Abs Auto 0.01 X10*3/uL (0.00-0.03); Imm Gran Pct Auto 0.2 % (0.0-0.4); Lymphocytes Absolute Auto 2.2 X10*3/uL (1.2-4.9); Mean Corpuscular HGB Conc 32.9 g/dl (31.0-35.0); Mean Corpuscular Hemoglobin 30.9 pg (27.0-33.0); Mean Corpuscular Volume 93.9 fL (80.0-98.0); NRBC Abs Auto 0.000 X10*3/uL (0.0-0.012); NRBC Pct Auto 0.0 /100WBC (0.0-0.2); Platelet Count 225 X10*3/uL (160-400); Red Blood Count 4.27 X10*6/uL (4.20-5.50); White Blood Count 5.8 X10*3/uL (4.8-10.8)
[2024-12-29 10:34] LABS: Appearance Urine Clear; Glucose Urine UA Negative (Negative); PH 5.5 (5.0-9.0); Specific Gravity - Urine 1.015 (1.005-1.025); UMIC TRIGGER UA YES
[2024-12-29 11:00] LABS: Alanine Aminotransferase 19 U/L (0-31); Albumin Level 4.1 g/dL (3.5-5.0); Alkaline Phosphatase 91 U/L (39-117); Anion Gap 11 (12-20); Aspartate Amino Transferase 22 U/L (5-31); Blood Urea Nitrogen 16 mg/dL (9-16); Calcium 8.9 mg/dL (8.4-10.2); Carbon Dioxide 28 mmol/L (22-29); Chloride 108 mmol/L (96-108); Cholesterol 152 mg/dL (<200); Estimated Glomerular Filt Rate > 60; HDL Cholesterol 41 mg/dL (>40); Potassium 4.0 mmol/L (3.3-5.1); Sodium 143 mmol/L (135-145); Total Protein 7.0 g/dL (6.5-8.0); Triglycerides 109 mg/dL (<150)
== END 2024-12-29 07:29 | disposition home or self-care (01) ==
LOC: HO.HMGCLDS 07:28
PROVIDERS: PCP Internal Medicine; Visit Provider Internal Medicine
DX: Z00.00 Encounter for general adult medical examination without abnormal findings (principal); E04.2 Nontoxic multinodular goiter; E78.5 Hyperlipidemia, unspecified; E55.9 Vitamin D deficiency, unspecified
CPT/HCPCS: 36415; 80053; 80061; 81001; 82306; 85025

== ENCOUNTER 2025-01-05 13:33 | Outpatient (AMB) | payer MEDICARE, SELFPAY ==
[2025-01-05 13:43] VITALS: BP 128/78; PULSE 78; RESP 18; TEMP 36.9; O2SAT 95; BMI 32.9
--- NOTE | 2025-01-05 13:43 | A.OFFPC_ITS ---
Vital Signs 01/05/25 13:43 Height 5 ft 6 in Intake Visit Reasons: AWV Allergies No Known Allergies (No Known Allergies*) Allergy (Verified 10/27/24 12:14) Tobacco use date assessed: 10/27/24 Dental Screening Dental Screen Date: 10/27/24 [facility] Medical History (Updated 10/28/24 @ 00:02 by Kimberley Rivera) Psoriasis Mild intermittent asthma Annual physical exam Normal colonoscopy Normal Pap smear Mammogram normal Hyperlipidemia Multinodular thyroid Vitamin D deficiency Hypothyroidism Surgical History History of skin surgery History of total abdominal hysterectomy and bilateral salpingo-oophorectomy Family History Father No problems noted. Mother No problems noted. 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 Current occupational exposures/hazards: No Cognitive needs: No Hearing needs: No Vision needs: Yes Questionnaire Thrive Questionnaire Date Thrive assessed: 10/27/24 I am a: Patient What is your living situation today?: I have a steady place to live Within the past 12 months, did the food you bought not last and you didn't have the money to get more?: Never true Within the past 12 months, did you worry whether your food would run out before you got money to buy more?: Never true Do you have trouble paying for medicines?: No Do you have trouble getting transportation to medical appointments?: No Do you have trouble paying your heating and electricity bill?: No Do you have trouble taking care of your child, family member or friend?: No Do you have trouble with day-to-day activities such as bathing, preparing meals, shopping, managing finances, etc.?: No Are you currently unemployed and looking for a job?: No Are you interested in more education?: No Please select the resources that you would like help with: None Currently or been in a relationship where the following occur: No concerns reported THRIVE Score: 0 MATT-7 AMB Questionnaire MATT-7 Date MATT - 7 assessed: 10/27/24 Source: Developed by Drs. Ryan Roberson, Bertha Correa, Ugo García and colleagues, with an educational aileen from [employer]. Physical exam (Primary Care) Tobacco/Smoking Status: Tobacco use Status Tobacco use date assessed 10/27/24 10/27/24 12:18 Patient Tobacco Use Status Never used Tobacco 10/27/24 12:18 e-Cigarette/Vaping Use Never Used 10/27/24 12:10 Thrive Assessment: Date of Thrive Assessment Date Thrive assessed 10/24/24 12/29/24 12:02 Currently or been in a relationship where the following occur: No concerns reported Coding
--- NOTE | 2025-01-05 13:51 | AM.OFFVISMDC ---
Intake Vital Signs 01/05/25 13:43 Height 5 ft 6 in Weight 204 lb BMI 32.9 BP 128/78 Blood Pressure Location Lt brachial Position Sitting Respiration 18 Pulse 78 Pulse Source Pulse Oximeter Temp 98.4 F Temp Source Oral Pulse Oximetry (%) 95 Oxygen Delivery Method Room Air Intake Visit Reasons: AWV Intake Note: Pt is here today for AWV. Allergies No Known Allergies (No Known Allergies*) Allergy (Verified 01/05/25 13:58) Medication List - Last Reconciled 01/05/25 by Sharon Smallwood MD albuterol sulfate 90 mcg/actuation 1 inh inhalation QID PRN atorvastatin 10 mg PO DAILY ergocalciferol (vitamin D2) 2,000 mcg (40 x 50 mcg (2,000 unit)) PO SUMOTUWEFRSA@0900 levothyroxine 75 mcg PO DAILY HPI AWV HPI Details Initiated the conversation about Advanced Directives. Advanced Directives help? patients prepare for current and future decisions about their medical treatment? and place of care. Discussed with patient that it is a process where a patients? current condition and prognosis are reviewed, their wishes for information? regarding their illness are elicited, and likely medical dilemmas are presented? and options discussed. The form can be amended as needed, reviewed yearly and? make changes as needed IPPE/AWV ? year old presents? for her ? Annual? Wellness Visit, initial visit.? Medical / Social History Reviewed? Past Medical History ?Yes? . ? [facility]son? of Care / Care Team list updated ?Yes . ? Surgical/Hospitalization? History ?Yes . ? Current Medications? (including OTC and supplements) ?Yes . ? Family History ?Yes? . ? Tobacco? Control form ?Yes . ? AUDIT-C (Alcohol use) form? ?Yes . ? Illicit drug use in Social? History ?Yes . ? Current diagnosis of? depression? ?No ? Appropriate PHQ2/PHQ9? completed ?Yes . ? Data entered by ?Medical? Marketing Operations Coordinator and reviewed by provider ? Fall Risk ? Fall? History? Have you had any falls with? injury in the past year? ?No . ? Have you had two or more? falls in the past year? ?No . ? Fall Risk Assessment: ?No? falls in the past year . ? HRA filled out by? the patient, reviewed by Provider and scanned. ? IPPE/AWV ? Balance? Romberg? ?Yes . ? Tandem? walk ?Yes . ? Walk and? Turn ?Yes . ? Rise from? sit to stand ?Yes . ?Vision? Corrective? lens ?Yes ? Vision? screen ? Up-to-date, has an appointment [] for vision? screening and glaucoma screening ?Hearing? Whisper? test ?pass .? Initiated the conversation about Advanced Directives. Advanced Directives help? patients prepare for current and future decisions about their medical treatment? and place of care. Discussed with patient that it is a process where a patients? current condition and prognosis are reviewed, their wishes for information? regarding their illness are elicited, and likely medical dilemmas are presented? and options discussed. The form can be amended as needed, reviewed yearly and? make changes as needed Written? Plan?Completed. See Patient? Documents. [facility] Medical History Psoriasis Mild intermittent asthma Annual physical exam Normal colonoscopy Normal Pap smear Mammogram normal Hyperlipidemia Multinodular thyroid Vitamin D deficiency Hypothyroidism Surgical History History of skin surgery History of total abdominal hysterectomy and bilateral salpingo-oophorectomy Family History Father No problems noted. Mother No problems noted. 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 Current occupational exposures/hazards: No Cognitive needs: No Hearing needs: No Vision needs: Yes Questionnaire Medicare Wellness Checkup What [age] What gender do you identify with?: female During the past 4 weeks, how much have you been bothered by emotional problems such as feeling anxious, depressed, irritable, sad or downhearted, and blue?: not at all During the past 4 weeks, has your physical & emotional health limited your social activities with family, friends, neighbors, or groups?: not at all During the past 4 weeks, how much bodily pain have you generally had?: no pain During the past 4 weeks, was someone available to help you if you needed & wanted help?: yes, as much as I wanted During the past 4 weeks, what was the hardest physical activity you could do for at least 2 minutes?: heavy Can you get to places out of walking distance without help? (For eg., can you travel alone on buses, taxis or drive your car?): Yes Can you go shopping for groceries or clothes without someone's help?: Yes Can you prepare your own meals?: Yes Can you do your housework without help?: Yes Because of any health problems, do you need the help of another person with your personal care needs such as eating, bathing, dressing or getting around the house?: No Can you handle your own money without help?: Yes During the past 4 weeks, how would you rate your health in general?: very good During the past 4 weeks how have things been going for you?: very well; could hardly better Are you having difficulties driving your car?: no Do you always fasten your seat belt when you are in a car?: yes, usually During past 4 weeks, have you been bothered by the following: never: Falling or dizzy when standing up, Sexual problems?, Trouble eating well?, Teeth or denture problems?, Problems using the telephone? and Tiredness or fatigue? Have you fallen 2 or more times in the past year?: No Are you afraid of falling?: No Are you a smoker?: no During the past 4 weeks, how many drinks of wine, beer, or other alcoholic beverages did you have?: 1 drink or less per week Do you exercise for about 20 minutes 3 or more times a week?: yes, most of the time Have you been given information to help with the following?: no: Hazards in your house that might hurt you? and no: Keeping track of your medications? How often do you have trouble taking medicines the way you have been told to take them?: I always take medicine as prescribed How confident are you that you can control & manage most of your health problems?: very confident What is your race?: White Mini Mental State Exam (MMSE) Orientation What is the (year) (season) (date) (day) (month)?: year, season, date, day and month Where are we (state) (county) (town or city) (hospital) (floor)?: state, county, town or city, hospital/clinic and floor Registration Name of 3 unrelated objects clearly and slowly, then ask patient to repeat all 3 of them. (1st repeat determines score. Make sure they can repeat all three): object 1, object 2 and object 3 Attention & Calculation (CHOOSE ONE) Spell WORLD backwards (DLROW): 5 letters Recall Ask patient to repeat the 3 items from question #3.: object 1, object 2 and object 3 Language Show patient a wristwatch & ask what it is. Repeat for pencil.: watch and pencil Ask the patient to repeat the phrase 'No ifs, ands, or buts' after you.: correct Ask the patient to 'take a piece of paper with their right hand' 'fold paper in half' 'place paper on floor': take paper in right hand, fold paper in half and place paper on floor Print the sentence 'CLOSE YOUR EYES' on a piece. If patient actually closes eyes then score.: followed written direction Give patient a blank piece of paper & ask to write a sentence. Score if it contains a noun & verb.: sentence contains subject and verb Score Score: 29 PHQ-9 Over the last 2 weeks, how often have you been bothered by any of the following problems? 1. Little interest or pleasure in doing things: not at all 2. Feeling down, depressed, or hopeless: not at all 3. Trouble falling or staying asleep, or sleeping too much: not at all 4. Feeling tired or having little energy: not at all 5. Poor appetite or overeating: not at all 6. Feeling bad about yourself - or that you are a failure or have let yourself or your family down: not at all 7. Trouble concentrating on things, such as reading the newspaper or watching television: not at all 8. Moving or speaking so slowly that other people could have noticed. Or the opposite - being so fidgety or restless that you have been moving around a lot more than usual: not at all 9. Thoughts that you would be better off or of hurting yourself in some way: not at all Total score: 0 Depression Screening Interpretation: Negative Depression Screening Done: Yes 91618 - PHQ-9 Billing: Yes Source: Developed by Drs. Ryan Roberson, Bertha Correa, Ugo García and colleagues, with an educational aileen from [employer]. Review of Systems Const All systems reviewed & are unremarkable except as noted in HPI and below Eyes Reports no additional complaints ENT Reports no additional complaints Card Reports no additional complaints Resp Reports no additional complaints GI Reports no additional complaints Reports no additional complaints Physical Exam Vital Signs: Last Vital Signs Temp 98.4 F 01/05/25 13:43 Pulse 78 01/05/25 13:43 Resp 18 01/05/25 13:43 BP 128/78 01/05/25 13:43 Pulse Ox 95 01/05/25 13:43 Oxygen Delivery Method Room Air 01/05/25 13:43 BMI result Body Mass Index 32.9 Const General: no acute distress HEENT Head: Yes normal to inspection Eyes General: appearance normal, both eyes and all related structures Neck Neck: Yes no lymphadenopathy and Yes supple Resp Effort & Inspection: normal respiratory effort Auscultation: clear to auscultation bilaterally Cardio Rhythm: regular rhythm Heart sounds: S1 normal heart sound present and S2 normal heart sound present GI Inspection: Yes normal to inspection Palpation (GI): Soft to palpation Percussion: Yes normal to percussion Auscultation: normal bowel sounds Extrem General: Yes no clubbing, cyanosis or edema Assessment & Plan Assessment & Plan (1) Postmenopausal: Code(s): Z78.0 - Asymptomatic menopausal state Plan: Check DEXA (2) Vitamin D deficiency: Code(s): E55.9 - Vitamin D deficiency, unspecified Plan: Continue vitamin D3 supplement (3) Hyperlipidemia: Code(s): E78.5 - Hyperlipidemia, unspecified Plan: Continue statin (4) Annual physical exam: Code(s): Z00.00 - Encounter for general adult medical examination without abnormal findings Plan: Well-balanced diet regular physical activity discussed with the patient. Orders: Orders XR DEXA axial skeleton Today Z78.0 - Asymptomatic menopausal state Comprehensive [place]. Panel Fast 1 Year E55.9 - Vitamin D deficiency, unspecified, E78.5 - Hyperlipidemia, unspecified Complete Blood Count Auto Diff 1 Year E55.9 - Vitamin D deficiency, unspecified, E78.5 - Hyperlipidemia, unspecified Lipid Panel 1 Year E55.9 - Vitamin D deficiency, unspecified, E78.5 - Hyperlipidemia, unspecified Vitamin D 25-OH Total 1 Year E55.9 - Vitamin D deficiency, unspecified, E78.5 - Hyperlipidemia, unspecified Medications: New clotrimazole-betamethasone 1-0.05 % 1 appl topical BID 30 grams 0RF Refilled atorvastatin 10 mg PO DAILY 90 tabs 3RF Quality Reporting (2019) Depression/Bipolar (159/160/161/177) PHQ-9: Total score: 0 Coding Level of Care Code Medicare Subsequent (G0439) Diagnoses Postmenopausal Z78.0 Vitamin D deficiency E55.9 Hyperlipidemia E78.5 Annual physical exam Z00.00 CPT Codes Advance Care Planning - Advance Care Planning discussion: On file, no changes ([id number]) Advance Care Planning - Time spent: 1-15 minutes, on File ([id number]) Additional Codes PHQ-9 - 75513 - PHQ-9 Billing: Yes ([id number]) Advance Care Planning Advance Care Planning discussion: On file, no changes Forms completed: Health Care Proxy Time spent: 1-15 minutes, on File Did not discuss due to Cultural/Spiritual beliefs: Yes
--- OUTSIDE RECORDS SUMMARY | 2025-01-05 14:17 | XMS_ITS | Patient Health Record ---
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 Name Role Phone Sharon Smallwood MD Primary Care Provider Unavaila Ryan Moe Unavailable [phone] Reason For Referral No Information Medications Medication [...] Problem Status W/U Status Risk Notes Problem [id number] Encounter for screening for malignant neoplasm of colon (Z12.11) Active confirmed Problem [id number] Preprocedural examination (Z01.818) Active confirmed Problem [id number] Hypertension, unspecified type (I10) Active confirmed Plan Of Treatment Future Test Test Name Order Date COLONOSCOPY 02/04/2019 Insurance Providers Payer Name Payer Address Payer Phone Subscriber Number Group Number Insured Name Patient Relationship to Insured Coverage Start Date Coverage End Date [facility] [address] [place] [phone] [phone] [id number] RUSLAN MANN Self - patient is the insured Medical (General) History Medical History History ICD Code Denies [place],DM,CVA,renal disease Asthma Neg. screening colonoscopy in 03/2008 Thyroid nodules--scheduled for a biopsy on 04/02/19 Hyperlipidemia Hypothyroidism Surgical History Surgery Date(Month/Year) Hysterectomy
== END 2025-01-05 14:25 | disposition home or self-care (01) ==
LOC: HO.HMCC 13:34
PROVIDERS: PCP Internal Medicine; Visit Provider Internal Medicine
DX: Z78.0 Asymptomatic menopausal state (principal); E55.9 Vitamin D deficiency, unspecified; E78.5 Hyperlipidemia, unspecified; Z00.00 Encounter for general adult medical examination without abnormal findings

== ENCOUNTER → 2025-01-05 13:33 | Outpatient (BNVA) | payer MEDICARE, SELFPAY | PROVIDERS: PCP Internal Medicine; Visit Provider Internal Medicine | DX: Z00.00 Encounter for general adult medical examination without abnormal findings (principal); E55.9 Vitamin D deficiency, unspecified; E78.5 Hyperlipidemia, unspecified; Z78.0 Asymptomatic menopausal state | CPT/HCPCS: 96127 ==

== ENCOUNTER 2025-01-23 10:39 | Outpatient (AMB) | payer MEDICARE, SELFPAY ==
--- NOTE | 2025-01-23 11:19 | AM.OFFWIN_ITS ---
Intake Vital Signs 01/23/25 11:20 Height 5 ft 6 in Weight 204 lb BMI 32.9 BP 130/70 Blood Pressure Location Lt brachial Position Sitting Pulse 86 Pulse Source Pulse Oximeter Temp 98.1 F Temp Source Oral Pulse Oximetry (%) 96 Intake Visit Reasons: EP-vidal time breathing, wheezing Patient Tobacco Use Status: Never used Tobacco Allergies No Known Allergies (No Known Allergies*) Allergy (Verified 01/23/25 11:21) Do you need a note to return to daycare/school/sports/work: No HPI EP-vidal time breathing, wheezing HPI Details Patient is a 69-year-old female with history of asthma induced by upper respiratory infections, recent hospitalization and family with similar symptoms, upper respiratory infection with negative COVID RSV or flu Postnasal drip, dry cough, wheezing, and shortness of breath with speaking, mildly improved with albuterol inhaler Denies shortness of breath at rest, headache, sore throat, ear pain, chest pain, fever chills, nausea vomiting or diarrhea, weakness or dizziness, myalgias, or other significant associated symptoms [facility] Medical History Psoriasis Mild intermittent asthma Annual physical exam Normal colonoscopy Normal Pap smear Mammogram normal Hyperlipidemia Multinodular thyroid Vitamin D deficiency Hypothyroidism Surgical History History of skin surgery History of total abdominal hysterectomy and bilateral salpingo-oophorectomy Family History Father No problems noted. Mother No problems noted. 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 Current occupational exposures/hazards: No Cognitive needs: No Hearing needs: No Vision needs: Yes Review of Systems Const All systems reviewed & are unremarkable except as noted in HPI and below Neuro Denies confusion Psych Denies confusion Physical Exam Vital Signs: Last Vital Signs Temp 98.1 F 01/23/25 11:20 Pulse 86 01/23/25 11:20 BP 130/70 01/23/25 11:20 Pulse Ox 96 01/23/25 11:20 BMI result Body Mass Index 32.9 Const General: cooperative, comfortable, no acute distress, alert, awake, Physically active, ill appearing (mildly) and well groomed; No anxious, confusion, diaphoretic, intoxicated appearing, poor hygiene or tired appearing Nutritional Appearance: average body habitus Orientation/consciousness: patient oriented x3 and No confusion Limitations: no limitations HEENT Head: Yes normal to inspection, Yes normocephalic and Yes atraumatic Ears: hearing grossly normal bilaterally, external ears normal, TM's normal bilaterally and EAC's normal General nose exam: Normal external nose present, Abnormal mucous membranes and turbinates present and Nasal discharge present clear Face and sinus: Yes normal facial exam, Yes sinuses nontender and Yes face symmetric Mouth: Normal oral and palatal mucosa present, lip normal and tongue normal Throat: Yes uvula midline, No peritonsillar mass, Yes postnasal drainage (clear), No uvular edema and No cobblestoning Eyes General: appearance normal, both eyes and all related structures Chest Chest palpation & inspection: normal palpation of entire chest wall Resp Effort & Inspection: normal respiratory effort, able to speak in complete sentences, no audible wheezes, Actively coughing (Occasional dry), no grunting, not labored, no nasal flaring, no pursed lip breathing, no respiratory distress, no retractions, no stridor, not tachypneic, no tripod positioning, No prolonged expiratory phase and symmetric chest movement Auscultation: no crackles, no rales, no rhonchi, wheezes, lung sounds not diminished and No rub present Cardio Palpation: normal PMI Rate: regular rate Skin Other: Good color, warm and dry Neuro General: patient oriented x3 and No confusion Psych Appearance: grossly normal Mental Status: mental status grossly normal Speech and movement: Normal speech and movement present Affect: normal affect Attitude: cooperative Thought process: Normal thought process present Insight: Good insight present (Psych) Judgement: Good judgement present (Psych) Assessment & Plan Assessment & Plan (1) URI (upper respiratory infection): Code(s): J06.9 - Acute upper respiratory infection, unspecified Qualifiers: URI type: unspecified URI Qualified Code(s): J06.9 - Acute upper respiratory infection, unspecified (2) Asthma: Code(s): J45.909 - Unspecified asthma, uncomplicated Qualifiers: Asthma severity: unspecified severity Asthma persistence: intermittent Asthma complication type: with acute exacerbation Qualified Code(s): J45.21 - Mild intermittent asthma with (acute) exacerbation Plan Patient with apparent asthma exacerbation due to upper respiratory infection, stable on exam with good oxygenation and no signs of work of breathing, however diffuse wheezing Declined chest x-ray today, but I advised she follow up if symptoms persist or worsen as she would need 1 at that time Wrote for long course of high-dose prednisone, in light of recent hospitalization due to exacerbation, as well as azithromycin, and she can continue with albuterol at home, with refilled today Pending results of flu COVID and RSV testing Advised she go to the emergency department if symptoms are persisting or worsening, and she is competent for that Orders: Orders SARS-CoV2/FLU/RSV 01/23/25 J06.9 - Acute upper respiratory infection, unspecified Medications: New prednisone then take 2 and half tabs daily for 3 days, then take 2 tabs daily for 3 days, then take 1 and half tabs daily for 3 days, and then take 1 tab daily for 3 days 60 mg (3 x 20 mg) PO DAILY 30 tabs 0RF 3 days azithromycin For 250 mg dose pack: take 500 mg today (day 1), then 250 mg for 4 days (days 2-5) PO 6 tabs 0RF Refilled albuterol sulfate 90 mcg/actuation 1 inh inhalation QID PRN 8.5 grams 0RF shortness of breath or wheezing Coding Level of Care Code Est Pt Level 4 (92441) Diagnoses Upper respiratory tract infection, unspecified type J06.9 URI type: unspecified URI Intermittent asthma with acute exacerbation, unspecified asthma severity J45.21 Asthma severity: unspecified severity Asthma persistence: intermittent Asthma complication type: with acute exacerbation
[2025-01-23 11:20] VITALS: BP 130/70; PULSE 86; TEMP 36.7; O2SAT 96; BMI 32.9
== END 2025-01-23 12:24 | disposition home or self-care (01) ==
LOC: HO.HMCWIC 10:39
PROVIDERS: PCP Internal Medicine; Visit Provider Physician Assistant Medical
DX: J06.9 Acute upper respiratory infection, unspecified (principal); J45.21 Mild intermittent asthma with (acute) exacerbation

== ENCOUNTER 2025-01-23 10:39 | Outpatient (REF) | payer MEDICARE, SELFPAY ==
--- OUTSIDE RECORDS SUMMARY | 2025-01-25 11:24 | XMS_ITS | Patient Health Record ---
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 Wood Car Builder Name Role Phone Sharon Smallwood MD Primary Care Provider Unavaila Ryan Moe Unavailable [phone] Reason For Referral No Information Medications Medication [...] Problem Status W/U Status Risk Notes Problem [id number] Encounter for screening for malignant neoplasm of colon (Z12.11) Active confirmed Problem [id number] Preprocedural examination (Z01.818) Active confirmed Problem 41601683 Hypertension, unspecified type (I10) Active confirmed Plan Of Treatment Future Test Test Name Order Date COLONOSCOPY 02/04/2019 Insurance Providers Payer Name Payer Address Payer Phone Subscriber Number Group Number Insured Name Patient Relationship to Insured Coverage Start Date Coverage End Date [facility] [address] [place] [phone] [id number] RUSLAN MANN Self - patient is the insured Medical (General) History Medical History History ICD Code Denies [place],DM,CVA,renal disease Asthma Neg. screening colonoscopy in 03/2008 Thyroid nodules--scheduled for a biopsy on 04/02/19 Hyperlipidemia Hypothyroidism Surgical History Surgery Date(Month/Year) Hysterectomy
[2025-01-25 11:25] LABS: Resp Syncy Virus RNA Qual PCR NEGATIVE (Negative); SARS COV2 PCR INHOUSE NEGATIVE (Negative)
== END 2025-01-23 10:40 | disposition home or self-care (01) ==
LOC: HO.LNP 10:39
PROVIDERS: PCP Internal Medicine; Visit Provider Physician Assistant Medical
DX: J45.21 Mild intermittent asthma with (acute) exacerbation (principal); J06.9 Acute upper respiratory infection, unspecified
CPT/HCPCS: 87637; 99212

== ENCOUNTER 2025-02-10 10:49 | Outpatient (REF) | payer MEDICARE, SELFPAY ==
--- NOTE | ~2025-02-10 | XR_ITS ---
EXAMINATION: XR CHEST CLINICAL INFORMATION: R05.9 - Cough, unspecified COMPARISON: October 17, 2024 TECHNIQUE: 2 views of the chest were obtained. FINDINGS: No hyperinflation. Pulmonary reticular pattern with prominence in the right perihilar region. No consolidation, pleural effusion or pneumothorax. Cardiac mediastinal silhouette size is normal. Multilevel thoracic and upper lumbar spondylosis.. XR/XR chest 2V IMPRESSION: Questionable acute airspace disease, right perihilar. Electronically signed by: Jamir Hernández MD 02/10/2025 12:49 PM EDT
[2025-02-10 14:56] LABS: Chlamydia pneumoniae PCR Not Detected (Not Detect.); Coronavirus 229E PCR Not Detected (Not Detect.); Coronavirus HKU1 PCR Not Detected (Not Detect.); Coronavirus NL63 PCR Not Detected (Not Detect.); Coronavirus OC43 PCR Not Detected (Not Detect.); RSV PCR Not Detected (Not Detect.); Rhino/Enterovirus PCR Not Detected (Not Detect.)
[2025-02-10 14:57] LABS: Influenza A H1 PCR Not Detected (Not Detect.); Influenza A H1-2009 PCR Not Detected (Not Detect.); Influenza A H3 PCR Not Detected (Not Detect.); SARS-CoV-2 PCR Not Detected (Not Detect.)
== END 2025-02-10 10:50 | disposition home or self-care (01) ==
LOC: HO.HMGCX 10:49
PROVIDERS: PCP Internal Medicine; Visit Provider Physician Assistant Medical
DX: J45.41 Moderate persistent asthma with (acute) exacerbation (principal); J06.9 Acute upper respiratory infection, unspecified; R05.9 Cough, unspecified; Z79.51 Long term (current) use of inhaled steroids
CPT/HCPCS: 71046; 87633; 94640; 99212

== ENCOUNTER 2025-02-10 10:49 | Outpatient (AMB) | payer MEDICARE, SELFPAY ==
[2025-02-10 11:17] VITALS: BP 150/80; PULSE 68; TEMP 36.6; O2SAT 96; BMI 33.2
--- NOTE | 2025-02-10 11:17 | AM.OFFWIN_ITS ---
Intake Vital Signs 02/10/25 11:17 Height 5 ft 6 in Weight 206 lb BMI 33.2 BP 150/80 H Blood Pressure Location Lt brachial Position Sitting Pulse 68 Pulse Source Pulse Oximeter Temp 97.9 F Temp Source Oral Pulse Oximetry (%) 96 Oxygen Delivery Method Room Air Intake Visit Reasons: ep sob/ difficulty breathing Intake Note: pt presents with productive cough, SOB, dyspnea- s/s started yesterday after finishing prednisone 4 days ago for the same illness Patient Tobacco Use Status: Never used Tobacco Allergies No Known Allergies (No Known Allergies*) Allergy (Verified 02/10/25 11:20) Do you need a note to return to daycare/school/sports/work: No HPI HPI Comments History of Present Illness Details History - The patient is a 69-year-old female pr esenting with SOB and wheezing since she stopped the prednisone a couple days ago. - The patient has a history of asthma, w hich was dormant for approximately 20 years until a cold in October triggered an exacerbation. - The patient experienced wheezing and d ifficulty breathing, which worsened after stopping prednisone. - The symptoms have progressively worsen ed, with albuterol providing no relief. - The patient was previously treated wit h prednisone and antibiotics. - She does not have a nebulizer. - The patient was hospitalized in October r four days on oxygen but was not intubated. A CAT scan was performed with no significant findings. - She states that she has chest tightnes s and has been SOB. - She denies fever, chills, cough, conge stion, ear pain, sore throat, abd pain, n/v/d, dizziness, or weakness. Physical Exam General: Cooperative, healthy appearing, comfortable and no acute distress Orientation/consciousness: Patient oriented x3 Limitations: No limitations Head: Normal to inspection Ears: Hearing grossly normal bilaterally, external ears normal and TM's normal bilaterally Nose: Normal external nose present, normal nares present, and no nasal discharge present. Face and sinus: Sinuses nontender to palpation. Mouth: Normal oral and palatal mucosa present and moist mucous membranes noted. Throat: Tonsils normal. Uvula is midline. Posterior oropharynx with erythema and no exudates. Eyes: Appearance normal, both eyes and all related structures Neck: Normal visual inspection, full ROM. No lymphadenopathy noted. Respiratory: Wheezing noted, difficulty breathing, no respiratory distress, not tachypneic, no tripod positioning and no use of accessory muscles. Cardiovascular: Regular rate and rhythm. Normal S1 and S2 Skin: No rashes or lesions noted Patient was informed and verbally consented to the use of an ambient scribe for clinic note documentation during this visit [facility] Medical History Psoriasis Mild intermittent asthma Annual physical exam Normal colonoscopy Normal Pap smear Mammogram normal Hyperlipidemia Multinodular thyroid Vitamin D deficiency Hypothyroidism Surgical History History of skin surgery History of total abdominal hysterectomy and bilateral salpingo-oophorectomy Family History Father No problems noted. Mother No problems noted. 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 Current occupational exposures/hazards: No Cognitive needs: No Hearing needs: No Vision needs: Yes Review of Systems Const All systems reviewed & are unremarkable except as noted in HPI and below Physical Exam Vital Signs: Last Vital Signs Temp 97.9 F 02/10/25 11:17 Pulse 68 02/10/25 11:17 BP 150/80 H 02/10/25 11:17 Pulse Ox 96 02/10/25 11:17 Oxygen Delivery Method Room Air 02/10/25 11:17 BMI result Body Mass Index 33.2 Office Procedures Nebulizer Treatment Nebulizer Treatment [id number]/MDI RX initial, or Nebulizer Subsequent Treatment Office Meds ipratropium 0.5 mg-albuterol 3 mg (2.5 mg base)/3 mL nebulization soln Performing Provider: Carrie Emmanuel PA-C Performing Location: [facility] Administered by: Carrie Emmanuel PA-C on 02/10/25 12:12 Dose Route Admin Location Dispensed Lot Number Expiration Date [facility] Ampoule Examiner 3 mL inhalation 3 mL [id number] 07/03/26 [id number] [employer] Assessment & Plan Assessment & Plan (1) Asthma exacerbation: Code(s): J45.901 - Unspecified asthma with (acute) exacerbation Qualifiers: Asthma severity: moderate Asthma persistence: persistent Qualified Code(s): J45.41 - Moderate persistent asthma with (acute) exacerbation Plan Most likely asthma exacerbation plan - Plan to perform a chest x-ray to rule out other causes of respiratory distress. - Administer a nebulizer treatment to alleviate wheezing and respiratory distress. - Restart prednisone therapy with a higher dose to manage asthma exacerbation. - Restart daily Advair therapy to maintain asthma control. - Continue with albuterol as needed - may need a nebulizer - Referral for pulmonary function test and potential pulmonary consultation is suggested - follow up with PCP. Orders: Orders AMB Nebulizer Treatment Today J45.901 - Unspecified asthma with (acute) exacerbation Resp Pathogen Panel - [facility] Today J06.9 - Acute upper respiratory infection, unspecified XR chest 2V Today R05.9 - Cough, unspecified Medications: New prednisone 50 mg PO QAM 5 tabs 0RF fluticasone propion-salmeterol 100-50 mcg/dose (Advair Diskus) 1 inh inhalation Q12H 60 ea 0RF benzonatate 100 mg PO bid-tid PRN 21 caps 0RF Cough 7 days Coding Level of Care Code Est Pt Level 4 (16141) Diagnoses Moderate persistent asthma with exacerbation J45.41 Asthma severity: moderate Asthma persistence: persistent CPT Codes Nebulizer Treatment - Nebulizer Treatment, initial or subsequent: 80146- Nebulizer/MDI RX initial, or Nebulizer Subsequent Treatment ([id number])
--- OUTSIDE RECORDS SUMMARY | 2025-02-10 13:30 | XMS_ITS | Patient Health Record ---
Author Organization [facility] Address [address] [place] [address] Care Team Providers Care Remote Sensing Research Scientist Name Role Phone Sharon Smallwood MD Primary Care Provider Unavaila Ryan Moe Unavailable [phone] Reason For Referral No Information Medications Medication [...] Problem Status W/U Status Risk Notes Problem [id number] Encounter for screening for malignant neoplasm of colon (Z12.11) Active confirmed Problem [id number] Preprocedural examination (Z01.818) Active confirmed Problem [id number] Hypertension, unspecified type (I10) Active confirmed Plan Of Treatment Future Test Test Name Order Date COLONOSCOPY 02/04/2019 Insurance Providers Payer Name Payer Address Payer Phone Subscriber Number Group Number Insured Name Patient Relationship to Insured Coverage Start Date Coverage End Date [facility] [address] [place] [phone] [id number] RUSLAN MANN Self - patient is the insured Medical (General) History Medical History History ICD Code Denies [place],DM,CVA,renal disease Asthma Neg. screening colonoscopy in 03/2008 Thyroid nodules--scheduled for a biopsy on 04/02/19 Hyperlipidemia Hypothyroidism Surgical History Surgery Date(Month/Year) Hysterectomy
== END 2025-02-10 13:47 | disposition home or self-care (01) ==
PROVIDERS: PCP Internal Medicine; Visit Provider Physician Assistant Medical
DX: J45.901 Unspecified asthma with (acute) exacerbation (principal); J45.41 Moderate persistent asthma with (acute) exacerbation

== ENCOUNTER → 2025-02-10 12:37 | Outpatient (BNV) | payer MEDICARE, SELFPAY | PROVIDERS: PCP Internal Medicine; Visit Provider Radiology Diagnostic Radiology | DX: R05.9 Cough, unspecified (principal) | CPT/HCPCS: 71046 ==

== ENCOUNTER 2025-02-19 08:03 | Outpatient (REF) | payer MEDICARE, SELFPAY ==
--- NOTE | ~2025-02-19 | MM_ITS ---
EXAMINATION: DXA BONE DENSITY AXIAL HISTORY: Z78.0 - Asymptomatic menopausal state TECHNIQUE: Finalta Dual energy absorptiometry (DEXA) of the lumbar spine, total left hip, and femoral neck was performed. COMPARISON: There are no prior studies for comparison. FINDINGS: The bone mineral density of the lumbar spine is 1.328 g/cm2, corresponding to a T-score of 1.2, and a Z-score of 2.0. This is indicative of normal bone mineral density. The bone mineral density of the left total hip is 0.977 g/cm2, corresponding to a T-score of -0.2, and a Z-score of 0.5. This is indicative of normal bone mineral density. The bone mineral density of the left femoral neck is 1.001 g/cm2, corresponding to a T-score of -0.3, and a Z-score of 0.8. This is indicative of normal bone mineral density. FRACTURE RISK: The FRAX index suggests a risk of major osteoporotic fracture of 7.0%, and of hip fracture 0.4%. MM/XR DEXA axial skeleton IMPRESSION: Based on bone mineral density, and according to World Health Organization (WHO) criteria, the diagnosis is consistent with normal bone mineral density. Statistically, 68% of repeat scans fall within 1 SD (+/- 0.010 g/cm2 for AP spine L1-L4) and 1 SD (+/- 0.012 g/cm2 for femur total) FRAX is a trademark of the [employer], a World Health Organization (WHO) Collaborating Center. Electronically signed by: Ryan Schwab MD 02/19/2025 10:08 AM EDT
== END 2025-02-19 08:04 | disposition home or self-care (01) ==
LOC: HO.MAMMO 08:03
PROVIDERS: PCP Internal Medicine; Visit Provider Internal Medicine
DX: Z13.820 Encounter for screening for osteoporosis (principal); Z78.0 Asymptomatic menopausal state; J45.909 Unspecified asthma, uncomplicated
CPT/HCPCS: 77080; 99212

== ENCOUNTER → 2025-02-19 08:15 | Outpatient (BNV) | payer MEDICARE, SELFPAY | PROVIDERS: PCP Internal Medicine; Visit Provider Radiology Diagnostic Radiology | DX: E28.39 Other primary ovarian failure (principal) | CPT/HCPCS: 77080 ==

== ENCOUNTER 2025-02-19 13:17 | Outpatient (AMB) | payer MEDICARE, SELFPAY ==
[2025-02-19 13:20] VITALS: BP 124/68; PULSE 87; RESP 18; TEMP 36.6; O2SAT 98; BMI 33.1
--- NOTE | 2025-02-19 13:20 | MHC.PC.OV ---
Vital Signs 02/19/25 13:20 Height 5 ft 6 in Weight 205 lb BMI 33.1 BP 124/68 Blood Pressure Location Rt brachial Position Sitting Respiration 18 Pulse 87 Pulse Source Pulse Oximeter Temp 97.8 F Temp Source Oral Pulse Oximetry (%) 98 Oxygen Delivery Method Room Air Intake Visit Reasons: Follow up after walk in per Dr. Smallwood Intake Note: Pt is here today for a follow up visit after being seen in a walk in. Allergies No Known Allergies (No Known Allergies*) Allergy (Verified 02/19/25 13:21) Medication List - Last Reconciled 02/19/25 by Sharon Smallwood MD albuterol sulfate 90 mcg/actuation 1 inh inhalation QID PRN atorvastatin 10 mg PO DAILY clotrimazole-betamethasone 1-0.05 % 1 appl topical BID ergocalciferol (vitamin D2) 2,000 mcg (40 x 50 mcg (2,000 unit)) PO SUMOTUWEFRSA@0900 fluticasone propion-salmeterol 100-50 mcg/dose (Advair Diskus) 1 inh inhalation Q12H levothyroxine 75 mcg PO DAILY Tobacco use date assessed: 02/19/25 Fall risk assessment: No Falls in past year Last assessed Fall Risk: 02/19/25 Dental Screening Dental Screen Date: 10/27/24 HPI Follow up after walk in per Dr. Smallwood HPI Details Patient presents for the follow-up of 2 visits to walk in. She was on vacation a month ago and after the weather became cooler and damp patient developed increasing wheezing chest tightness and dry cough. She was seen in walk in. Viral swab was negative. Patient was treated with prednisone taper, Z-Rajesh and albuterol inhaler. She improved but 2 days after completing prednisone taper she developed recurrent wheezing shortness or breath and chest tightness. She denies sputum production fever chills PND or orthopnea. She went back to walk and was prescribed 50 mg of prednisone for 5 days. Patient started Advair 100/50 2 puffs twice a day 4 days ago. She denies recurrent wheezing chest tightness coughing. She has not had to use albuterol inhaler. Patient denies any new environmental changes except having a dog since last fall. Patient denies allergy symptoms when near the dog including runny nose congestion sneezing. She had a chest x-ray which was negative last week. Patient had asthma over 30 years ago and has not had to use an inhaler since then. [facility] Medical History Psoriasis Mild intermittent asthma Annual physical exam Normal colonoscopy Normal Pap smear Mammogram normal Hyperlipidemia Multinodular thyroid Vitamin D deficiency Hypothyroidism Surgical History History of skin surgery History of total abdominal hysterectomy and bilateral salpingo-oophorectomy Family History Father No problems noted. Mother No problems noted. 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 1. Little interest or pleasure in doing things: not at all 2. Feeling down, depressed, or hopeless: not at all 3. Trouble falling or staying asleep, or sleeping too much: not at all 4. Feeling tired or having little energy: not at all 5. Poor appetite or overeating: not at all 6. Feeling bad about yourself - or that you are a failure or have let yourself or your family down: not at all 7. Trouble concentrating on things, such as reading the newspaper or watching television: not at all 8. Moving or speaking so slowly that other people could have noticed. Or the opposite - being so fidgety or restless that you have been moving around a lot more than usual: not at all 9. Thoughts that you would be better off or of hurting yourself in some way: not at all Total score: 0 Depression Screening Interpretation: Negative Depression Screening Done: Yes Source: Developed by Drs. Ryan Roberson, Bertha BUgo Calles and colleagues, with an educational aileen from [employer]. Thrive Questionnaire Date Thrive assessed: 10/27/24 I am a: Patient What is your living situation today?: I have a steady place to live Within the past 12 months, did the food you bought not last and you didn't have the money to get more?: Never true Within the past 12 months, did you worry whether your food would run out before you got money to buy more?: Never true Do you have trouble paying for medicines?: No Do you have trouble getting transportation to medical appointments?: No Do you have trouble paying your heating and electricity bill?: No Do you have trouble taking care of your child, family member or friend?: No Do you have trouble with day-to-day activities such as bathing, preparing meals, shopping, managing finances, etc.?: No Are you currently unemployed and looking for a job?: No Are you interested in more education?: No Please select the resources that you would like help with: None Currently or been in a relationship where the following occur: No concerns reported THRIVE Score: 0 MATT-7 AMB Questionnaire MATT-7 Date MATT - 7 assessed: 10/27/24 Feeling nervous, anxious, or on edge: 0 = Not at all Not being able to stop or control worryin = Not at all Worrying too much about different things: 0 = Not at all Trouble relaxin = Not at all Being so restless that it is hard to sit still: 0 = Not at all Becoming easily annoyed or irritable: 0 = Not at all Feeling afraid as if something awful might happen: 0 = Not at all Total MATT-7 score (0-4 normal; 5-9 mild; 10-14 moderate; 15-21 severe): 0 Source: Developed by Drs. Ryan Roberson, Ugo Velazquez and colleagues, with an educational aileen from [employer]. Review of Systems Const All systems reviewed & are unremarkable except as noted in HPI and below Eyes Reports no additional complaints ENT Reports no additional complaints Card Reports no additional complaints Resp Reports no additional complaints GI Reports no additional complaints Reports no additional complaints Physical exam (Primary Care) Vital Signs: Last Vital Signs Temp 97.8 F 02/19/25 13:20 Pulse 87 02/19/25 13:20 Resp 18 02/19/25 13:20 BP 124/68 02/19/25 13:20 Pulse Ox 98 02/19/25 13:20 Oxygen Delivery Method Room Air 02/19/25 13:20 BMI result Body Mass Index 33.1 Tobacco/Smoking Status: Tobacco use Status Tobacco use date assessed 02/19/25 02/19/25 13:25 Patient Tobacco Use Status Never used Tobacco 02/19/25 13:25 e-Cigarette/Vaping Use Never Used 02/19/25 13:25 PHQ-9: PHQ-9 Score PHQ-9: Total score 0 02/19/25 13:25 Depression Screening Interpretation: Negative Thrive Assessment: Date of Thrive Assessment Date Thrive assessed 10/27/24 02/19/25 13:25 Currently or been in a relationship where the following occur: No concerns reported Const General: no acute distress HENMT Head: Yes normal to inspection Ears: TM's normal bilaterally Face and sinus: Yes normal facial exam Mouth: Normal oral and palatal mucosa present Eyes General: appearance normal, both eyes and all related structures Neck Neck: Yes no lymphadenopathy and Yes supple Resp Effort & Inspection: normal respiratory effort Auscultation: clear to auscultation bilaterally Cardio Rhythm: regular rhythm Heart sounds: S1 normal heart sound present and S2 normal heart sound present Coding Level of Care Code Est Pt Level 4 (44099) Diagnoses Asthma J45.909 Assessment & Plan Assessment & Plan (1) Asthma: Code(s): J45.909 - Unspecified asthma, uncomplicated Category: Medical Plan: For recurrent asthma exacerbation patient will continue Advair and use albuterol as needed. Pulmonary function test will be obtained as patient had secondhand smoking exposure for many years her father and smoked in the house. Patient is going to [place] on vacation and is prescribed prednisone taper in case she develop asthma exacerbation. Patient will follow-up in 6 weeks after PFTs Orders: Orders PFT pulmonary function test Today J45.909 - Unspecified asthma, uncomplicated Medications: New nebulizers As directed 1 ea 0RF J45.909 - Unspecified asthma, uncomplicated albuterol sulfate 2.5 mg (3 mL) inhalation QID PRN 180 mL 0RF shortness of breath or wheezing prednisone 4 tabl po x 3 days, then 3 tabl qd for 3 days, then 2 tabl x 2 days, then 1 tabl x 3 days 10 mg PO DAILY 30 tabs 0RF Refilled fluticasone propion-salmeterol 100-50 mcg/dose (Advair Diskus) 1 inh inhalation Q12H 60 ea 0RF
== END 2025-02-19 13:56 | disposition home or self-care (01) ==
LOC: HO.HMCC 13:18
PROVIDERS: PCP Internal Medicine; Visit Provider Internal Medicine
DX: J45.909 Unspecified asthma, uncomplicated (principal)

== ENCOUNTER 2025-03-30 09:52 | Outpatient (AMB) | payer MEDICARE, SELFPAY ==
[2025-03-30 10:01] VITALS: BP 126/74; PULSE 75; RESP 16; TEMP 36.9; O2SAT 96; BMI 33.6
--- NOTE | 2025-03-30 10:01 | A.OFFPC_ITS ---
Vital Signs 03/30/25 10:01 Height 5 ft 6 in Weight 208 lb BMI 33.6 BP 126/74 Blood Pressure Location Lt brachial Position Sitting Respiration 16 Pulse 75 Pulse Source Pulse Oximeter Temp 98.4 F Temp Source Oral Pulse Oximetry (%) 96 Oxygen Delivery Method Room Air Intake Visit Reasons: 6 week follow up Intake Note: Pt is here today for 6 weeks follow up visit. Allergies No Known Allergies (No Known Allergies*) Allergy (Verified 03/30/25 10:03) Medication List - Last Reconciled 03/30/25 by Sharon Smallwood MD albuterol sulfate 90 mcg/actuation 1 inh inhalation QID PRN albuterol sulfate 2.5 mg (3 mL) inhalation QID PRN atorvastatin 10 mg PO DAILY clotrimazole-betamethasone 1-0.05 % 1 appl topical BID ergocalciferol (vitamin D2) 2,000 mcg (40 x 50 mcg (2,000 unit)) PO SUMOTUWEFRSA@0900 fluticasone propion-salmeterol 100-50 mcg/dose (Advair Diskus) 1 inh inhalation Q12H levothyroxine 75 mcg PO DAILY nebulizers Four times per day as need Tobacco use date assessed: 03/30/25 Fall risk assessment: No Falls in past year Last assessed Fall Risk: 03/30/25 Dental Screening Dental Screen Date: 10/27/24 HPI 6 week follow up HPI Details Patient presents for the follow-up of asthma. She has been feeling better taking Advair twice a day and has not had to use albuterol inhaler for over a month. Patient reports some postnasal drip in the fall. She got a puppy in April if her symptoms of asthma worsened in mid October. Patient denies any other environmental exposure. Patient denies allergic rhinitis when around puppy and does not know if she is allergic to dogs. Patient has PFTs scheduled in the beginning of May [facility] Medical History Psoriasis Mild intermittent asthma Annual physical exam Normal colonoscopy Normal Pap smear Mammogram normal Hyperlipidemia Multinodular thyroid Vitamin D deficiency Hypothyroidism Surgical History History of skin surgery History of total abdominal hysterectomy and bilateral salpingo-oophorectomy Family History Father No problems noted. Mother No problems noted. 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 Current occupational exposures/hazards: No Cognitive needs: No Hearing needs: No Vision needs: Yes Questionnaire Thrive Questionnaire Date Thrive assessed: 10/24/24 I am a: Patient What is your living situation today?: I have a steady place to live Within the past 12 months, did the food you bought not last and you didn't have the money to get more?: Never true Within the past 12 months, did you worry whether your food would run out before you got money to buy more?: Never true Do you have trouble paying for medicines?: No Do you have trouble getting transportation to medical appointments?: No Do you have trouble paying your heating and electricity bill?: No Do you have trouble taking care of your child, family member or friend?: No Do you have trouble with day-to-day activities such as bathing, preparing meals, shopping, managing finances, etc.?: No Are you currently unemployed and looking for a job?: No Are you interested in more education?: No Please select the resources that you would like help with: None Currently or been in a relationship where the following occur: No concerns reported THRIVE Score: 0 MATT-7 AMB Questionnaire MATT-7 Date MATT - 7 assessed: 10/27/24 Source: Developed by Drs. Ryan Roberson, Bertha Correa, Ugo García and colleagues, with an educational aileen from [employer]. Review of Systems Const All systems reviewed & are unremarkable except as noted in HPI and below ENT Reports no additional complaints Card Reports no additional complaints Resp Reports no additional complaints GI Reports no additional complaints Physical exam (Primary Care) Vital Signs: Last Vital Signs Temp 98.4 F 03/30/25 10:01 Pulse 75 03/30/25 10:01 Resp 16 03/30/25 10:01 BP 126/74 03/30/25 10:01 Pulse Ox 96 03/30/25 10:01 Oxygen Delivery Method Room Air 03/30/25 10:01 BMI result Body Mass Index 33.6 Tobacco/Smoking Status: Tobacco use Status Tobacco use date assessed 03/30/25 03/30/25 10:10 Patient Tobacco Use Status Never used Tobacco 03/30/25 10:01 e-Cigarette/Vaping Use Never Used 03/30/25 10:01 Thrive Assessment: Date of Thrive Assessment Date Thrive assessed 10/24/24 03/30/25 10:01 Currently or been in a relationship where the following occur: No concerns reported Const General: no acute distress HENMT Head: Yes normal to inspection Throat: Yes postnasal drainage Neck Neck: Yes no lymphadenopathy and Yes supple Resp Effort & Inspection: normal respiratory effort Auscultation: wheezes and diminished lung sounds Cardio Rhythm: regular rhythm Heart sounds: S1 normal heart sound present and S2 normal heart sound present Coding Level of Care Code Est Pt Level 4 (64220) Diagnoses Hyperlipidemia E78.5 Asthma J45.909 Assessment & Plan Assessment & Plan (1) Hyperlipidemia: Code(s): E78.5 - Hyperlipidemia, unspecified Category: Medical Plan: Continue statin (2) Asthma: Code(s): J45.909 - Unspecified asthma, uncomplicated Category: Medical Plan: Increase Advair to 250 twice a day continue albuterol as needed. Patient will follow-up after PFTs in May. She was advised to take [id number] antihistamine for seasonal allergy Medications: New fluticasone propion-salmeterol 250-50 mcg/dose (Advair Diskus) 1 inh inhalation BID 60 ea 2RF
--- OUTSIDE RECORDS SUMMARY | 2025-03-30 11:38 | XMS_ITS | Patient Health Record ---
Author Organization [facility] Address [address] [place] [address] Care Team Providers Care Polysomnograph Tech Name Role Phone Sharon Smallwood MD Primary Care Provider Sapphirea Ryan Moe Unavailable [phone] Reason For Referral No Information Medications Medication SIG (Take, Route, Frequency, Duration) Notes Start Date End Date Status Advair HFA 230-21 MCG/ACT 2 puffs Inhala tion Twice a day Active Atorvastatin Calcium 10 MG 1 tablet Oral ly Once a day; Duration: 30 day(s) Active Levothyroxine Sodium 50 MCG 1 tablet on an empty stomach in the morning Orally Once a day; Duration: 30 day(s) Active Vitamin D 1000 UNIT 1 tablet Orally Once a day; Duration: 30 day(s) Active Albuterol Sulfate HFA 108 [...] Problem Status W/U Status Risk Notes Problem Screening for malignant neoplasm of colon (612323239) Encounter for screening for malignant neoplasm of colon (Z12.11) Active confirmed Problem Preprocedural examination (198213411994395) Preprocedural examination (Z01.818) Active confirmed Problem Essential hypertension (81493659) Hypertension, unspecified type (I10) Active confirmed Plan Of Treatment Future Test Test Name Order Date COLONOSCOPY 02/04/2019 Insurance Providers Payer Name Payer Address Payer Phone Subscriber Number Group Number Insured Name Patient Relationship to Insured Coverage Start Date Coverage End Date [facility] [address] [place] [phone] [id number] RUSLAN MANN Self - patient is the insured Medical (General) History Medical History History ICD Code Denies DE,DM,CVA,renal disease Asthma Neg. screening colonoscopy in 03/2008 Thyroid nodules--scheduled for a biopsy on 04/02/19 Hyperlipidemia Hypothyroidism Surgical History Surgery Date(Month/Year) Hysterectomy
== END 2025-03-30 10:41 | disposition home or self-care (01) ==
LOC: HO.HMCC 09:54
PROVIDERS: PCP Internal Medicine; Visit Provider Internal Medicine
DX: E78.5 Hyperlipidemia, unspecified (principal); J45.909 Unspecified asthma, uncomplicated

== ENCOUNTER → 2025-03-30 09:52 | Outpatient (BNVA) | payer MEDICARE, SELFPAY | PROVIDERS: PCP Internal Medicine; Visit Provider Internal Medicine | DX: J45.909 Unspecified asthma, uncomplicated (principal); E78.5 Hyperlipidemia, unspecified; Z79.899 Other long term (current) drug therapy | CPT/HCPCS: 99212 ==

== ENCOUNTER 2025-05-06 08:56 | Outpatient (REF) | payer MEDICARE, SELFPAY ==
--- NOTE | 2025-05-06 09:01 | PFT_ITS ---
Indication: Asthma Spirometry FEV1 to FVC 69% pre bronchodilators 72% post bronchodilators; FEV1 2.29 L; FVC 3.16 L. There is a trend response to bronchodilators noted. Of note the FEF 10/20/2074 decreased to 54% predicted Lung Volumes Total lung capacity 89% predicted Diffusion Capacity 111% predicted Methacholine Challenge [] Flow Volume Loops Obstructive physiology MVV 107% predicted Comparison None Interpretation There appears to be a reversible obstructive ventilatory defect consistent with a diagnosis of asthma. Likely uncontrolled. There is a trend response to bronchodilators noted. Significant small airways disease consistent with a history of asthma. Lung volumes are within normal limits. Diffusing capacity also within normal limits. Clinical correlation warranted. MTDD
[2025-05-06 09:45] VITALS: PULSE 71
== END 2025-05-06 08:57 | disposition home or self-care (01) ==
LOC: HO.RESP 08:56
PROVIDERS: PCP Internal Medicine; Visit Provider Internal Medicine
DX: J45.909 Unspecified asthma, uncomplicated (principal)
CPT/HCPCS: 94060; 94640; 94727; 94729

== ENCOUNTER → 2025-05-06 09:01 | Outpatient (BNV) | payer MEDICARE, SELFPAY | PROVIDERS: PCP Internal Medicine; Visit Provider Hospitalist | DX: J45.909 Unspecified asthma, uncomplicated (principal) | CPT/HCPCS: 94060; 94727; 94729 ==